=== PATIENT | female | born 1935 | race Caucasian/White ===

== ENCOUNTER 2019-11-22 10:34 | Outpatient (CLI) | payer MEDICARE, SELFPAY ==
[2019-11-22 10:57] LABS: Basophils Percent Auto 0.2 % (0.2-1.2); Eosinophils Absolute Auto 0.2 K/mm3 (0-0.3); Eosinophils Percent Auto 4.2 % (0-4.4); Hematocrit 37.1 % (37.0-47.0); Hemoglobin 11.8 g/dL (12.0-15.0); Immature Granulocyte Absolute 0.01 K/mm3 (0.00-0.031); Immature Granulocyte Percent A 0.2 % (0-0.5); Lymphocytes Absolute Auto 1.47 K/mm3 (0.9-3.2); Lymphocytes Percent Auto 32.7 % (18.3-44.2); Mean Corpuscular HGB Conc 31.8 g/dl (32-36); Mean Corpuscular Hemoglobin 29.9 pg (26-34); Mean Corpuscular Volume 94.2 fl (80-100); Mean Platelet Volume 8.8 fl (7.4-10.4); Monocytes Absolute Auto 0.3 K/mm3 (0.1-0.6); Monocytes Percent Auto 6.9 % (2.6-8.5); Neutrophils Absolute Auto 2.5 K/mm3 (1.3-6.7); Neutrophils Percent Auto 55.8 % (45.5-73.1); Platelet Count Result 160 k/mm3 (150-375); Red Blood Count 3.94 M/mm3 (4.2-5.4); Red Cell Distribution Width 13.7 % (11.5-14.5); White Blood Count 4.5 K/mm3 (4.5-10.0)
[2019-11-22 11:12] LABS: Alanine Aminotransferase 17 U/L (4-35); Albumin Level 3.6 g/dL (3.5-5.1); Alkaline Phosphatase 95 U/L (38-126); Aspartate Amino Transferase 44 U/L (14-36); Bilirubin,Total 0.3 mg/dL (0.2-1.3); Blood Urea Nitrogen 9 mg/dL (7-17); Calcium 9.2 mg/dL (8.4-10.2); Carbon Dioxide 33 mmol/L (22-30); Chloride 104 mmol/L (98-107); Estimated Glomerular Filt Rate > 60; Glucose 100 mg/dL (65-105); Sodium 139 mmol/L (137-145)
[2019-11-22 11:23] LABS: Erythrocyte Sedimentation Rate 89 mm/hr (0-20)
== END 2019-11-22 10:35 | disposition home or self-care (01) ==
PROVIDERS: PCP Family Medicine; Visit Provider Family Medicine
DX: E78.00 Pure hypercholesterolemia, unspecified (principal); I10 Essential (primary) hypertension; M35.3 Polymyalgia rheumatica
CPT/HCPCS: 36415; 80053; 85025; 85652

== ENCOUNTER 2019-11-27 12:58 | Emergency (ER) | payer MEDICARE, SELFPAY ==
--- NOTE | ~2019-11-27 | XR_ITS ---
XR ankle LT min 3V DATE: 11/27/2019 14:02 INDICATION: Pain and swelling for 3 weeks TECHNIQUE: 4 views COMPARISON: None FINDINGS: Prominent posterior and plantar calcaneal enthesopathy. There is generalized soft tissue swelling of the left ankle. No fracture or dislocation of the ankle or disruption of the ankle mortise. No periosteal reaction or bone destruction. IMPRESSION: Generalized soft tissue swelling; no fracture or dislocation Prominent posterior and plantar calcaneal enthesopathy Reviewed, dictated and finalized at location A.
--- NOTE | ~2019-11-27 | XR_ITS ---
XR foot LT min 3V DATE: 11/27/2019 13:18 INDICATION: Pain and swelling of left foot. No injury. TECHNIQUE: 4 views COMPARISON: None FINDINGS: There is very prominent posterior and plantar calcaneal enthesopathy. Osteopenia. No fracture or dislocation, periosteal reaction or bone destruction is detected. There is mild osteoarthritis at the first metatarsophalangeal joint. IMPRESSION: Prominent plantar and posterior calcaneal enthesopathy Mild osteophyte is at first metatarsophalangeal joint Osteopenia Reviewed, dictated and finalized at location A.
--- NOTE | ~2019-11-27 | US_ITS ---
US venous doppler [facility] DATE: 11/27/2019 14:19 INDICATION: Pain and swelling of left lower extremity TECHNIQUE: Real-time and color flow imaging and Doppler analysis of the veins of the left leg COMPARISON: None FINDINGS: The left greater saphenous vein is patent. There is spontaneous and phasic flow and normal augmentation and color flow signal and normal compression of the deep veins of the left lower extremi ty. IMPRESSION: No evidence of deep venous thrombosis of the left lower extremity Reviewed, dictated and finalized at Location A. Reviewed, dictated and finalized at location A.
[2019-11-27 13:00] VITALS: BP 137/73; PULSE 76; RESP 18; TEMP 37; O2SAT 99
--- NOTE | 2019-11-27 13:31 | ED.LOWEXIN ---
HPI - Extremity Injury (Lower) General Chief Complaint: Extremity Injury, Lower Stated Complaint: Left Foot Swelling x3 Weeks Time Seen by Provider: 11/27/19 13:19 Source: patient Mode of arrival: wheelchair Limitations: no limitations History of Present Illness HPI Narrative: This is a 84 year old female that presents to the ER for left ankle swelling x 3 weeks. Reports pain in the ankle as well. No known injuries or trauma. Denies fever, erythema numbness or decreased ROM. Related Data Home Medications Medication Instructions Recorded Confirmed aspirin 81 mg chewable tablet 81 mg PO DAILY 09/15/19 metoprolol tartrate 50 mg tablet 50 mg PO Q12H 09/15/19 Allergies Allergy/AdvReac Type Severity Reaction Status Date / Time No Known Allergies Allergy Verified 11/27/19 13:04 Review of Systems Review of Systems: Narrative: CONSTITUTIONAL: Denies fever CARDIOVASCULAR: Reports edema RESPIRATORY: Denies dyspnea. SKIN: Denies rash MUSCULOSKELETAL: Reports joint pain, and myalgia. NEUROLOGIC: Denies numbness All systems reviewed & are unremarkable except as noted in HPI and below PMFSH Past Medical History Medical History (Updated 11/27/19 @ 15:56 by Norma Dexter PA-C) CAD (coronary artery disease) Essential (primary) hypertension Gastro-esophageal reflux disease without esophagitis Surgical History Surgical History H/O: hysterectomy History of knee replacement History of vein stripping Hx of CABG Social History Social History Smoking status: Never smoker Alcohol intake: never Gender identity (if verbalized by the patient): Female Exam Narrative: Exam Narrative: GENERAL: Elderly, well-nourished, and in no acute distress. HEAD: Normocephalic, atraumatic. EYES: EOMI. CHEST: Clear to auscultation. No respiratory distress. No wheezes rales or rhonchi HEART: Regular rate and rhythm. No murmur heard. Normal peripheral pulses. EXTREMITIES: Normal range of motion. Mild non-pitting edema to the left foot and ankle into the lower leg, no erythema or warmth. Normal DP pulses. Normal sensation SKIN: Warm, dry, no rash. NEURO: No focal deficits. Alert and oriented x3. PSYCH: Normal mood and affect Course Consultations Consultation #1: Spoke with patient's primary, Dr. Cohen about workup. Reports she has a history of polymyalgia rheumatica and would like her started on 20 mg of prednisone daily and he will follow-up in clinic. Date: 11/27/19 Time: 15:56 Vital Signs Vital signs: Vital Signs Temperature 98.6 F 11/27/19 13:00 Pulse Rate 76 11/27/19 13:00 Respiratory Rate 18 11/27/19 13:00 Blood Pressure 137/73 11/27/19 13:00 Pulse Oximetry 99 11/27/19 13:00 Temperature 98.6 F 11/27/19 13:00 Pulse Rate 76 11/27/19 13:00 Respiratory Rate 18 11/27/19 13:00 Blood Pressure 137/73 11/27/19 13:00 Pulse Oximetry 99 11/27/19 13:00 MDM - Extremity Injury (Lower) MDM Narrative Medical decision making narrative: Patient presents the emergency department for left ankle and foot pain and swelling. Patient is afebrile and nontoxic-appearing. No erythema or warmth on exam to suggest infection. CBC is without leukocytosis. She does have a mild normocytic anemia with hemoglobin of 11.2. ESR is elevated to 105. CRP mildly elevated to 1.5. Uric acid is normal. Left foot and ankle x-ray shows soft tissue swelling, no osseous abnormalities. Left lower extremity venous Dopplers without evidence of DVT. Spoke with patient's primary, Dr. Cohen about workup. Reports she has a history of polymyalgia rheumatica and would like her started on 20 mg of prednisone daily and he will follow-up in clinic. Patient is stable and felt appropriate for further outpatient evaluation. She is to follow-up with primary care doctor. She was given warnings to return to the ER Lab Data Att
[2019-11-27 13:48] LABS: Basophils Percent Auto 0.2 % (0.2-1.2); Eosinophils Absolute Auto 0.2 K/mm3 (0-0.3); Eosinophils Percent Auto 3.9 % (0-4.4); Hematocrit 35.4 % (37.0-47.0); Hemoglobin 11.2 g/dL (12.0-15.0); Immature Granulocyte Absolute 0.01 K/mm3 (0.00-0.031); Immature Granulocyte Percent A 0.2 % (0-0.5); Lymphocytes Absolute Auto 1.13 K/mm3 (0.9-3.2); Lymphocytes Percent Auto 24.2 % (18.3-44.2); Mean Corpuscular HGB Conc 31.6 g/dl (32-36); Mean Corpuscular Hemoglobin 29.2 pg (26-34); Mean Corpuscular Volume 92.2 fl (80-100); Mean Platelet Volume 8.5 fl (7.4-10.4); Monocytes Absolute Auto 0.4 K/mm3 (0.1-0.6); Neutrophils Absolute Auto 2.9 K/mm3 (1.3-6.7); Neutrophils Percent Auto 62.5 % (45.5-73.1); Platelet Count Result 156 k/mm3 (150-375); Red Blood Count 3.84 M/mm3 (4.2-5.4); Red Cell Distribution Width 13.6 % (11.5-14.5); White Blood Count 4.7 K/mm3 (4.5-10.0)
[2019-11-27 14:00] LABS: Prothrombin Time 12.7 Seconds (11.1-14.7)
[2019-11-27 14:01] LABS: Partial Thromboplastin Time 27.5 SECONDS (22.3-36.8)
[2019-11-27 14:02] LABS: Uric Acid 3.4 mg/dL (2.5-7.5)
[2019-11-27 14:05] LABS: Blood Urea Nitrogen 10 mg/dL (7-17); CRP 1.5 mg/dL (<1.0); Calcium 9.2 mg/dL (8.4-10.2); Carbon Dioxide 31 mmol/L (22-30); Chloride 103 mmol/L (98-107); Estimated CRCL calculation 67 ml/min; Estimated Glomerular Filt Rate > 60; Glucose 93 mg/dL (65-105); Potassium 4.4 mmol/L (3.4-5.0); Sodium 138 mmol/L (137-145)
[2019-11-27 14:16] LABS: Erythrocyte Sedimentation Rate 105 mm/hr (0-20)
[2019-11-27 16:02] VITALS: BP 142/88; PULSE 88; RESP 16; O2SAT 98
== END 2019-11-27 16:16 | disposition home or self-care (01) ==
PROVIDERS: Physician Assistant; Emergency Provider Emergency Medicine; PCP Family Medicine
DX: M35.3 Polymyalgia rheumatica (principal); I25.10 Atherosclerotic heart disease of native coronary artery without angina pectoris; I10 Essential (primary) hypertension; Z96.659 Presence of unspecified artificial knee joint; Z95.1 Presence of aortocoronary bypass graft; K21.9 Gastro-esophageal reflux disease without esophagitis; M85.872 Other specified disorders of bone density and structure, left ankle and foot; M25.775 Osteophyte, left foot; M77.32 Calcaneal spur, left foot
CPT/HCPCS: 36415; 73610; 73630; 80048; 84550; 85025; 85610; 85652; 85730; 86140; 93971; 99284

== ENCOUNTER 2020-01-05 12:33 | Outpatient (CLI) | payer MEDICARE, SELFPAY ==
--- NOTE | ~2020-01-05 | XR_ITS ---
EXAMINATION: XR lumbar spine 6V w bending DATE: 01/05/2020 13:08 INDICATION: Low back pain TECHNIQUE: Anteroposterior, lateral in neutral, flexion and extension, and bilateral oblique views of the lumbar spine, and cone-down lateral view of the lumbosacral junction were obtained. COMPARISON: 11/29/2017 FINDINGS: No fracture is identified. The bones are osteopenic. 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 The re are 6 mm of anterolisthesis of L5 on S1. No laxity is present with flexion or extension. There is mild loss of intervertebral disc space height throughout the lumbar spine. Degenerative osteophytes p roject from the anterior endplates of multiple vertebral bodies. Moderate facet osteoarthritis is pre sent at multiple levels. 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 Calcified atherosclerosis is noted. There is a fusiform infrarenal abdominal aortic aneurysm with slight increase in size since t he comparison examination.. IMPRESSION: 1. Moderate lumbar spondylosis without acute findings or significant interval change. 2. Slight increase in size of infrarenal abdominal aortic aneurysm. Reviewed, dictated and finalized at location A. IMPRESSION: 1. Moderate lumbar spondylosis without acute findings or significant interval c kolby. 2. Slight increase in size of infrarenal abdominal aortic aneurysm.
== END 2020-01-05 12:34 | disposition home or self-care (01) ==
PROVIDERS: PCP Family Medicine; Visit Provider Family Medicine
DX: M54.5 Low back pain (principal); M47.816 Spondylosis without myelopathy or radiculopathy, lumbar region; I71.4 Abdominal aortic aneurysm, without rupture
CPT/HCPCS: 72114

== ENCOUNTER 2020-01-19 09:42 | Outpatient (CLI) | payer MEDICARE, SELFPAY ==
--- NOTE | ~2020-01-19 | CT_ITS ---
EXAMINATION: CT abdomen wo con DATE: 01/19/2020 10:18 INDICATION: Abdominal aortic aneurysm without rupture. TECHNIQUE: Computed tomography (CT) of the abdomen was performed without intravenous contrast. Automa ector exposure control and iterative reconstruction technique were employed. The dose-length product wa s 675.00 mGy-cm. COMPARISON: CT abdomen and pelvis 11/29/2017 FINDINGS: The visualized portions of the lung bases demonstrate mild atelectasis. No pleural effusion . There is a small left posterior diaphragmatic hernia containing fat. The heart size is normal. Ther e are coronary artery calcifications. No pericardial effusion. There is a small sliding hiatal hernia . Calcifications in the liver and spleen are consistent with old granulomatous disease. The gallbladd er, pancreas, adrenal glands, and kidneys are normal. There are no dilated loops of bowel. There are no pathologically enlarged lymph nodes. There is no free intraperitoneal fluid. There is a 3.2 cm fus iform infrarenal aortic aneurysm. There are chronic bilateral L5 pars defects. There is 4 mm anteroli sthesis of L5 on S1. There is moderate lumbar spondylosis. IMPRESSION: 1. Stable 3.2 cm fusiform infrarenal aortic aneurysm. 2. Small sliding hiatal hernia. Reviewed, dictated and finalized at location A.
== END 2020-01-19 09:43 | disposition home or self-care (01) ==
LOC: ANHIMG 09:45
PROVIDERS: PCP Family Medicine; Visit Provider Family Medicine
DX: I71.4 Abdominal aortic aneurysm, without rupture (principal); K44.9 Diaphragmatic hernia without obstruction or gangrene
CPT/HCPCS: 74150

== ENCOUNTER 2020-01-22 06:11 | Inpatient (IN) | payer MEDICARE, SELFPAY ==
[2020-01-22] VITALS (9 sets, daily range): BP systolic 109–216; BP diastolic 47–88; PULSE 54–80; RESP 13–24; TEMP 36.6–37.2; O2SAT 93–100
--- NOTE | ~2020-01-22 | XR_ITS ---
EXAMINATION: XR chest 1V portable INDICATION: Pain after fall TECHNIQUE: Portable AP chest at 0729 hours COMPARISON: 09/02/2018 FINDINGS: The lungs are free of acute opacities. There is no pleural effusion or pneumothorax. The he art size is normal for technique. Median sternotomy wires and mediastinal surgical clips are seen, li arturo from prior coronary artery bypass grafting. IMPRESSION: 1. No acute cardiopulmonary abnormality. Reviewed, dictated and finalized at location A.
--- NOTE | ~2020-01-22 | XR_ITS ---
EXAMINATION: XR hip LT 2V w AP pelvis INDICATION: Left hip pain, initial encounter TECHNIQUE: AP view of the pelvis and two views of the left hip are obtained. COMPARISON: None available FINDINGS: There is an acute, traumatic, closed, comminuted intertrochanteric fracture of the left fem ur. The femoral head is well-seated in the acetabulum. There is moderate bilateral hip osteoarthritis . No additional acute osseous abnormality is identified. Calcified atherosclerosis is noted. IMPRESSION: 1. Acute, comminuted intertrochanteric left femur fracture. Reviewed, dictated and finalized at location A.
--- NOTE | ~2020-01-22 | XR_ITS ---
EXAMINATION: XR surgery orthopedic DATE: 01/23/2020 08:40 INDICATION: Intertrochanteric fracture of proximal left femur. TECHNIQUE: 4 intraoperative fluoroscopic views of left hip were obtained. I was not present. Fluorosc opy exposure time was 58 seconds. COMPARISON: Pelvis and left hip radiographs 01/22/2020 FINDINGS: There is a comminuted intertrochanteric fracture of proximal left femur. The main distal fr acture fragment demonstrates near-anatomic alignment status post open reduction internal fixation wit h antegrade intramedullary shelly, femoral head/neck screw, and distal interlocking screw. There is mode rate left hip osteoarthritis. IMPRESSION: 1. Comminuted intertrochanteric fracture of proximal left femur status post open reduction internal f ixation. 2. Moderate left hip osteoarthritis. Reviewed, dictated and finalized at location A. IMPRESSION: 1. Comminuted intertrochanteric fracture of proximal left femur status post ope n reduction internal fixation. 2. Moderate left hip osteoarthritis.
--- NOTE | 2020-01-22 07:02 | ED.FALL ---
HPI - Fall General Chief Complaint: Fall Stated Complaint: fall/ hip pain Time Seen by Provider: 01/22/20 07:01 Source: patient and family Mode of arrival: EMS Limitations: no limitations History of Present Illness HPI Narrative: Patient is an 84-year-old female who presents for evaluation after fall out of bed, left hip pain. Patient states she must have rolled out of bed, landing on her left side. She reports left hip pain which is dull, aching in nature and worse with movement. She reports her pain is very mild as long as she does not try to move it. She denies any numbness or knee pain. No head trauma. No headache or vision changes. Patient takes a daily baby aspirin, no other anticoagulation. She denies any chest pain or shortness of breath. Related Data Home Medications Medication Instructions Recorded Confirmed aspirin 81 mg chewable tablet 81 mg PO DAILY 09/15/19 metoprolol tartrate 50 mg tablet 50 mg PO Q12H 09/15/19 acetaminophen 325 mg tablet 325 mg PO .QD PRN tablet 11/30/19 calcium carbonate 600 mg (1,500 1 cap PO .QD cap 11/30/19 mg)-vitamin D3 500 unit capsule ferrous sulfate 325 mg (65 mg 325 mg PO BID 11/30/19 iron) tablet meclizine 12.5 mg tablet 12.5 mg PO .PRN tablet 11/30/19 mecobalamin (vitamin B12) 1,000 1,000 mcg PO DAILY 11/30/19 mcg chewable tablet multivitamin 1 tablet PO DAILY 11/30/19 vit C-vit I-[id number]-vfhe ox-lutein 1 cap PO BID cap 11/30/19 226 mg-200 unit-5 mg-0.8 mg capsule vitamin B complex 1 tablet PO DAILY 11/30/19 propylene glycol [Systane Complete] 1 drp OPHTHALMIC (EYE) TID PRN 01/22/20 Allergies Allergy/AdvReac Type Severity Reaction Status Date / Time No Known Allergies Allergy Verified 01/22/20 08:23 Review of Systems Review of Systems: Narrative: CONSTITUTIONAL: Denies fever CARDIOVASCULAR: Denies chest pain RESPIRATORY: Denies cough or dyspnea. GASTROINTESTINAL: Denies abdominal pain SKIN: Denies rash MUSCULOSKELETAL: Denies back pain, reports left hip pain NEUROLOGIC: Denies headache PMFSH Past Medical History Medical History CAD (coronary artery disease) Essential (primary) hypertension Gastro-esophageal reflux disease without esophagitis Surgical History Surgical History H/O: hysterectomy History of knee replacement History of vein stripping Hx of CABG Family History Family History Father Family history of cardiovascular disease, Onset Age: 86 Mother Family history of cardiovascular disease, Onset Age: 87 Sibling Acute myocardial infarction Family history of lung cancer Family history of malignant neoplasm of breast in first degree relative Family history of malignant neoplasm of urinary bladder Social History Social History Smoking status: Never smoker Alcohol intake: never Gender identity (if verbalized by the patient): Female Exam Narrative: Exam Narrative: GENERAL: Awake, alert, conversant HEAD: Normocephalic, atraumatic. EYES: PERRLA and EOMI. ENT: Nares clear, no rhinorrhea or epistaxis. Mucous membranes moist. NECK: Supple. CHEST: No respiratory distress, breathing even and non labored HEART: Borderline bradycardic rate, sinus rhythm ABDOMEN:Non distended, non tender EXTREMITIES: Left leg is shortened and externally rotated. DP pulses 2+. Intact distal sensation. Patient with decreased range of motion due to pain. Unable to lift leg off of bed due to pain. Further range of motion exercises not attempted. SKIN: Warm, dry, skin tear to left elbow. NEURO:No focal deficits. Alert and oriented x3 Course Vital Signs Vital signs: Vital Signs Temperature 36.7 C 01/22/20 06:16 Pulse Rate 58 L 01/22/20 06:16 Respiratory Rate 13 01/22/20 06:16 Blood Pre
--- NOTE | 2020-01-22 07:15 | PC.NURSE ---
Assumed care of pt, pt is alert and lying supine on stretcher, denies pain at this time. Spouse at bedside. VSS. Discussed POC.
--- NOTE | 2020-01-22 07:24 | ECG_ITS ---
Measurements Intervals [place] Rate: 55 P: 46 FL: 204 QRS: -50 QRSD: 128 T: 10 QT: 441 QTc: 425 Interpretive Statements SINUS BRADYCARDIA LEFT AXIS DEVIATION BORDERLINE AV CONDUCTION DELAY INTRAVENTRICULAR CONDUCTION DELAY LEFT VENTRICULAR HYPERTROPHY WITH ST-T CHANGE CANNOT RULE OUT SEPTAL INFARCT, AGE INDETERMINATE INFERIOR INFARCT, AGE INDETERMINATE BASELINE ARTIFACT- I, II, III, AVR, AVF ABNORMAL ECG Electronically Signed On 01-22-2020 8:53:19 CDT by Haja Myers D.O.
--- NOTE | 2020-01-22 07:52 | PC.NURSE ---
Pt c/o pain, per Dr Cristobal BARTLETT okay to give Morphine 4MG IVP.
[2020-01-22] MEDS: MORPHINE SULFATE 4 MG/ML INJ IV PUSH (07:55)
[2020-01-22 08:27] LABS: Basophils Percent Auto 0.1 % (0.2-1.2); Eosinophils Absolute Auto 0.1 K/mm3 (0-0.3); Eosinophils Percent Auto 1.4 % (0-4.4); Hematocrit 37.3 % (37.0-47.0); Hemoglobin 11.8 g/dL (12.0-15.0); Immature Granulocyte Absolute 0.05 K/mm3 (0.00-0.031); Immature Granulocyte Percent A 0.7 % (0-0.5); Lymphocytes Absolute Auto 1.26 K/mm3 (0.9-3.2); Lymphocytes Percent Auto 17.7 % (18.3-44.2); Mean Corpuscular HGB Conc 31.6 g/dl (32-36); Mean Corpuscular Hemoglobin 29.9 pg (26-34); Mean Corpuscular Volume 94.7 fl (80-100); Mean Platelet Volume 8.5 fl (7.4-10.4); Monocytes Absolute Auto 0.4 K/mm3 (0.1-0.6); Monocytes Percent Auto 5.9 % (2.6-8.5); Neutrophils Absolute Auto 5.3 K/mm3 (1.3-6.7); Neutrophils Percent Auto 74.2 % (45.5-73.1); Platelet Count Result 146 k/mm3 (150-375); Red Blood Count 3.94 M/mm3 (4.2-5.4); White Blood Count 7.1 K/mm3 (4.5-10.0)
[2020-01-22 08:39] LABS: Add Urine Microscopic? YES; Appearance Urine Clear (Clear); Bacteria Urine Trace /hpf; Bilirubin Urine Negative (Negative); Blood Urea Nitrogen 15 mg/dL (7-17); Blood Urine Negative (Negative); Calcium 8.8 mg/dL (8.4-10.2); Carbon Dioxide 32 mmol/L (22-30); Chloride 103 mmol/L (98-107); Color Urine Straw (Yellow); Estimated CRCL calculation 66 ml/min; Estimated Glomerular Filt Rate > 60; Glucose 97 mg/dL (65-105); Glucose Urine UA Negative (Negative); Ketones Urine Negative (Negative); Leukocyte Esterase Ur Negative LEU/UL (Negative); Mucus Urine Rare /lpf; Nitrate Urine Negative (Negative); Potassium 4.1 mmol/L (3.4-5.0); Protein Urine Negative (Negative); RBC Urine 0-2 /hpf (0-2); Sodium 140 mmol/L (137-145); Urobilinogen Urine Negative mg/dL (<2.0); WBC Urine 0-3 /hpf
[2020-01-22 08:41] LABS: INR 0.9; Prothrombin Time 12.3 Seconds (11.1-14.7)
[2020-01-22] MEDS: hydrALAZINE HCL 20 MG/ML VIAL IV PUSH (09:16)
[2020-01-22] MEDS: SODIUM CHLORIDE 0.9% IV 1,000 ML 125 ML IV CONT (09:17)
[2020-01-22] MEDS: ONDANSETRON INJ 4 MG/2 ML VIAL IV PUSH (09:37)
--- NOTE | 2020-01-22 09:38 | PC.NURSE ---
Pt called out and stated that she was nauseous. Pt given 4mg zofran
--- NOTE | 2020-01-22 11:33 | ADMGEN ---
This patient, Annie Denise, was admitted to [address] [facility] Surg Room 304-01. Patient/family oriented to hospital policies and general routines including ID bracelet, bed and alarms, visiting hours, pain management, procedures, bathroom and other care routines, personal items, smoking policy, room service/diet, and visiting hours. Valuables list has been completed. Information on how to activate the Rapid Response Team has been discussed. Patient/Family are encouraged to report perceived risks to care and to ask questions if they do not understand what they are told or what they should do.
--- NOTE | 2020-01-22 11:55 | PM.CNOR ---
Assessment and Plan Assessment and plan (1) Fracture of hip, left, closed: Qualifiers: Encounter type: initial encounter Qualified Code(s): S72.002A - Fracture of unspecified part of neck of left femur, initial encounter for closed fracture Code(s): S72.002A - Fracture of unspecified part of neck of left femur, initial encounter for closed fracture Status: Acute Assessment and Plan: 84-year-old female with an acute comminuted left hip intertrochanteric fracture. This is best treated with surgical stabilization in the form of ORIF left IT hip fracture with a trochanteric nail.Risks and potential complications were discussed in detail and questions answered. I have spoken with the hospitalist service. Pending medical clearance, we will proceed tomorrow morning. Thank you for the consultation History of Present Illness HPI Consult date: 01/22/20 Consult reason: fracture Chief complaint: left hip fracture Narrative: 84-year-old female who fell out of bed this morning suffering a comminuted left intertrochanteric hip fracture. No other injuries with this occurrence. She does have chronic low back pain issues which have limited her ability to get around comfortably in recent months. Review of Systems Constitutional: Constitutional: Reports no additional constitutional complaints, Denies excessive sweating and Denies fatigue Eyes: Eyes: Reports no additional eye complaints ENT: Reports system reviewed and no additional complaints, except as documented Cardiovascular: Cardiovascular: Denies chest pain at rest and Denies dyspnea Respiratory: Respiratory: Reports no additional respiratory complaints and Denies dyspnea Gastrointestinal: Gastrointestinal: Reports no additional gastrointestinal complaints Musculoskeletal: Musculoskeletal: Reports as per HPI Integumentary/Breasts: Skin/Breast: Reports system reviewed and no additional complaints, except as docu Neurologic: Reports as per HPI Endocrine: Endocrine: Denies excessive sweating and Denies fatigue Hematologic/Lymphatic: Hematologic/Lymphatic: Denies easy bleeding and Denies easy bruising PMFSH Past Medical History Medical History (Updated 01/22/20 @ 12:04 by Obi Greenfield MD) CAD (coronary artery disease) Essential (primary) hypertension Gastro-esophageal reflux disease without esophagitis Surgical History Surgical History (Updated 01/22/20 @ 11:56 by Obi Greenfield MD) H/O: hysterectomy History of knee replacement Bilateral History of vein stripping Hx of CABG Family History Family History Father Family history of cardiovascular disease, Onset Age: 86 Mother Family history of cardiovascular disease, Onset Age: 87 Sibling Acute myocardial infarction Family history of lung cancer Family history of malignant neoplasm of breast in first degree relative Family history of malignant neoplasm of urinary bladder Social History Social History Smoking status: Never smoker Alcohol intake: never Substance use: never Gender identity (if verbalized by the patient): Female Spiritual care concerns: No Meds Home Medications and Allergies Home Medications Medication Instructions Recorded Confirmed Type pantoprazole 20 mg tablet,delayed 20 mg PO QAM #90 tablet 06/02/19 Rx release aspirin 81 mg chewable tablet 81 mg PO DAILY 09/15/19 History metoprolol tartrate 50 mg tablet 50 mg PO Q12H 09/15/19 History simvastatin 40 mg tablet 40 mg PO DAILY #90 tablet 10/06/19 Rx alprazolam 0.5 mg tablet 0.5 mg PO QID #60 tablet 11/08/19 Rx acetaminophen 325 mg tablet 325 mg PO .QD PRN tablet 11/30/19 History calcium carbonate 600 mg (1,500 1 cap PO .QD cap 11/30/19 History mg)-vitamin D3 500 unit capsule ferrous sulfate 325 mg (65 mg 325 mg PO BID 11/30/19 History iron) table
--- NOTE | 2020-01-22 15:05 | PM.IMHP ---
H&P: HPI History of Present Illness Chief complaint: left hip fracture Narrative: Annie Denise is a 84 year old female with history of CAD (s/p CABG 2017), CHF, HTN, and AFSHIN who presented to the ED today, 01/21, from home via [facility] with complaints of left hip pain after sustaining a fall at home. Patient was in her normal state of health last night when she went to bed, and woke up this morning on the floor. She states she usually tosses and turns in bed when she sleeps and thinks she may have rolled out of bed, landing on her left side. EMS was subsequently summoned. Does not believe she hit her head; no chest pain/palpitations, dizziness/lightheadedness, no loss of consciousness as she was already asleep. She states her pain was 3/10 at its worse, currently at 2/10. Pain is worse with movement. She describes the pain as dull and just an uncomfortable feeling. No loss of sensation or movement in feet/lower leg bilaterally. She typically is able to ambulate decently without any assitance at home, although, Allan notes she has been having walking a bit slow and slumped over lately. She reports no previous falls. No recent illness. She has bee noting swelling in her lower legs which her PCP is treating with daily prednisone. Otherwise, she has no other complaints. Denies f/c/s, myalgias/arthralgias, headaches, dizziness, lightheadedness, cp/palpitations, sob/cough, n/v/d/c, abd pain, changes in BMs, dysuria, hematuria, cloudy urine, calf pain, one sided arm/leg weakness, slurred speech, facial droop. While in the ED, left hip xray showed acute, comminuted intertrochanteric left femur fracture. BP was elevated as high as 216/88 as patient she had not taken her morning blood pressure medication; hydralazine was given which improved BP to 100s sys this afternoon. Review of Systems Review of Systems: All systems reviewed & are unremarkable except as noted in HPI and below PMFSH Past Medical History Medical History (Updated 01/22/20 @ 16:17 by Juliocesar Carmichael PA-C) Abdominal aortic aneurysm (AAA) without rupture (12/08/17) CAD (coronary artery disease) CHF (congestive heart failure) Essential (primary) hypertension Gastro-esophageal reflux disease without esophagitis Obstructive sleep apnea (adult) (pediatric) Pure hypercholesterolemia, unspecified Vertigo Surgical History Surgical History H/O: hysterectomy History of knee replacement Bilateral History of vein stripping Hx of CABG Family History Family History Father Family history of cardiovascular disease, Onset Age: 86 Mother Family history of cardiovascular disease, Onset Age: 87 Sibling Acute myocardial infarction Family history of lung cancer Family history of malignant neoplasm of breast in first degree relative Family history of malignant neoplasm of urinary bladder Social History Social History (Updated 01/22/20 @ 15:39 by Juliocesar Carmichael PA-C) Social History: Patient lives at home with Allan, whom she designates as her surrogate MDM, and her daughter. Her PCP is Dr. Cohen. She is listed as a Full Code Smoking status: Never smoker Alcohol intake: never Substance use: never Gender identity (if verbalized by the patient): Female Spiritual care concerns: No Meds Home Medications and Allergies Home Medications Medication Instructions Recorded Confirmed Type pantoprazole 20 mg tablet,delayed 20 mg PO QAM #90 tablet 06/02/19 01/22/20 Rx release aspirin 81 mg chewable tablet 81 mg PO DAILY 09/15/19 01/22/20 History metoprolol tartrate 50 mg tablet 50 mg PO Q12H 09/15/19 01/22/20 History acetaminophen 325 mg tablet 325 mg PO PRN PRN tablet 11/30/19 01/22/20 History calcium carbonate 600 mg (1,500 1 cap PO .QD cap 11/30/19 01/22/20 History mg)-vitamin D3 500 unit capsule ferr
[2020-01-22] MEDS: ACETAMINOPHEN 325 MG TABLET 650 MG PO ×2 (16:33→22:54)
[2020-01-22] MEDS: predniSONE 5 MG TABLET 15 MG PO (16:34)
[2020-01-22] MEDS: FERROUS SULFATE 324 MG TABLET PO (16:35)
[2020-01-22] MEDS: METOPROLOL TARTRATE 50 MG TAB PO (20:55)
[2020-01-22] MEDS: SIMVASTATIN 20 MG TABLET 40 MG PO (20:55)
[2020-01-22] MEDS: ALPRAZolam 0.5 MG TABLET PO (20:55)
--- NOTE | 2020-01-22 21:19 | WPDANESEPPF ---
Anes - Initial Pre Proc Eval Procedure: Left hip IT nail Date/Time: 01/22/20 21:19 Surgeon: Lauro Greenfield Pre Op Diagnosis: Left hip fracture Pre Op Diagnosis: left hip fracture Patient Data Age: 84 Gender: F Height: 1.6 m Weight: 93.3 kg Last Vital Signs Temp 37.2 C 01/22/20 14:00 Pulse 68 01/22/20 20:55 Resp 14 01/22/20 15:38 BP 122/47 L 01/22/20 14:00 Pulse Ox 100 01/22/20 15:38 Allergies Allergy/AdvReac Type Severity Reaction Status Date / Time No Known Allergies Allergy Verified 01/22/20 08:23 Home Medications Medication Instructions Recorded Confirmed Type pantoprazole 20 mg tablet,delayed 20 mg PO QAM #90 tablet 06/02/19 01/22/20 Rx release aspirin 81 mg chewable tablet 81 mg PO DAILY 09/15/19 01/22/20 History metoprolol tartrate 50 mg tablet 50 mg PO Q12H 09/15/19 01/22/20 History acetaminophen 325 mg tablet 325 mg PO PRN PRN tablet 11/30/19 01/22/20 History calcium carbonate 600 mg (1,500 1 cap PO .QD cap 11/30/19 01/22/20 History mg)-vitamin D3 500 unit capsule ferrous sulfate 325 mg (65 mg 325 mg PO BID 11/30/19 01/22/20 History iron) tablet meclizine 12.5 mg tablet 12.5 mg PO .PRN tablet 11/30/19 01/22/20 History mecobalamin (vitamin B12) 1,000 1,000 mcg PO DAILY 11/30/19 01/22/20 History mcg chewable tablet multivitamin 1 tablet PO DAILY 11/30/19 01/22/20 History vit C-vit D-[place]au-buay ox-lutein 1 cap PO BID cap 11/30/19 01/22/20 History 226 mg-200 unit-5 mg-0.8 mg capsule vitamin B complex 1 tablet PO DAILY 11/30/19 01/22/20 History alprazolam [Xanax] 0.5 mg PO HS 01/22/20 01/22/20 History propylene glycol [Systane Complete] 1 drp OPHTHALMIC (EYE) TID PRN 01/22/20 01/22/20 History simvastatin 40 mg PO HS 01/22/20 01/22/20 History Laboratory Tests 01/22/20 01/22/20 01/22/20 08:18 08:18 08:18 WBC 7.1 K/mm3 K/mm3 (4.5-10.0) RBC 3.94 M/mm3 L M/mm3 (4.2-5.4) Hgb 11.8 g/dL L g/dL (12.0-15.0) Hct 37.3 % % (37.0-47.0) MCV 94.7 fl fl (80-100) MCH 29.9 pg pg (26-34) MCHC 31.6 g/dl L g/dl (32-36) RDW 15.0 % H % (11.5-14.5) Plt Count 146 k/mm3 L k/mm3 (150-375) MPV 8.5 fl fl (7.4-10.4) Immature Gran % (Auto) 0.7 % H % (0-0.5) Neut % (Auto) 74.2 % H % (45.5-73.1) Lymph % (Auto) 17.7 % L % (18.3-44.2) [place] % (Auto) 5.9 % % (2.6-8.5) Eos % (Auto) 1.4 % % (0-4.4) Baso % (Auto) 0.1 % L % (0.2-1.2) Lymph # (Auto) 1.26 K/mm3 K/mm3 (0.9-3.2) [place] # (Auto) 0.4 K/mm3 K/mm3 (0.1-0.6) Eos # (Auto) 0.1 K/mm3 K/mm3 (0-0.3) Baso # (Auto) 0.0 K/mm3 K/mm3 (0.0-0.1) Abs Immat Gran (auto) 0.05 K/mm3 H K/mm3 (0.00-0.031) Absolute Neuts (auto) 5.3 K/mm3 K/mm3 (1.3-6.7) Absolute Nucleated RBC 0.0 K/mm3 K/mm3 (0.0-0.012) Nucleated RBC % 0.0 % % (0.0-0.2) PT INR APTT 23.0 SECONDS SECONDS (22.3-36.8) Sodium 140 mmol/L mmol/L (137-145) Potassium 4.1 mmol/L mmol/L (3.4-5.0) Chloride 103 mmol/L mmol/L (98-107) Carbon Dioxide 32 mmol/L H mmol/L (22-30) BUN 15 mg/dL D mg/dL (7-17) Creatinine 0.60 mg/dL L mg/dL (0.7-1.0) Estim Creat Clear Calc 66 ml/min ml/min Estimated GFR > 60 (59 - ) Glucose 97 mg/dL mg/dL (65-105) Calcium 8.8 mg/dL mg/dL (8.4-10.2) Urine Color Urine Appearance Urine pH Ur Specific [place] Urine Protein Urine Glucose (UA) Urine Ketones Ur Blood (Man) Urine Nitrate Urine Bilirubin Urine Urobilinogen Leukocyte Esterase Rfl Urine RBC Urine WBC Urine Bacteria U
[2020-01-23] VITALS (13 sets, daily range): BP systolic 140–172; BP diastolic 51–72; PULSE 64–82; RESP 14–20; TEMP 36.6–37.2; O2SAT 92–100; BMI 10.0
[2020-01-23 06:28] LABS: Basophils Percent Auto 0.2 % (0.2-1.2); Eosinophils Percent Auto 0.3 % (0-4.4); Hemoglobin 11.2 g/dL (12.0-15.0); Immature Granulocyte Absolute 0.04 K/mm3 (0.00-0.031); Immature Granulocyte Percent A 0.4 % (0-0.5); Lymphocytes Absolute Auto 1.29 K/mm3 (0.9-3.2); Lymphocytes Percent Auto 11.7 % (18.3-44.2); Mean Corpuscular Hemoglobin 29.9 pg (26-34); Mean Corpuscular Volume 93.6 fl (80-100); Mean Platelet Volume 9.3 fl (7.4-10.4); Monocytes Absolute Auto 0.7 K/mm3 (0.1-0.6); Monocytes Percent Auto 6.2 % (2.6-8.5); Neutrophils Percent Auto 81.2 % (45.5-73.1); Platelet Count Result 168 k/mm3 (150-375); Red Blood Count 3.74 M/mm3 (4.2-5.4); Red Cell Distribution Width 15.7 % (11.5-14.5); White Blood Count 11.1 K/mm3 (4.5-10.0)
[2020-01-23 06:46] LABS: Alanine Aminotransferase 20 U/L (4-35); Albumin Level 3.2 g/dL (3.5-5.1); Alkaline Phosphatase 65 U/L (38-126); Aspartate Amino Transferase 32 U/L (14-36); Bilirubin,Total 0.6 mg/dL (0.2-1.3); Blood Urea Nitrogen 13 mg/dL (7-17); Calcium 8.6 mg/dL (8.4-10.2); Carbon Dioxide 28 mmol/L (22-30); Chloride 103 mmol/L (98-107); Estimated CRCL calculation 77 ml/min; Estimated Glomerular Filt Rate > 60; Glucose 103 mg/dL (65-105); Potassium 3.9 mmol/L (3.4-5.0); Sodium 135 mmol/L (137-145)
--- NOTE | 2020-01-23 07:10 | PC.NURSE ---
To OR per bed, IV SL. Report given to Moriah ARIZA.
[2020-01-23] MEDS: LACTATED RINGERS 1,000 ML 30 ML IV CONT (07:15)
[2020-01-23] MEDS: ceFAZolin SODIUM 1 GM VIAL 2 GM IV PUSH (07:30)
--- NOTE | 2020-01-23 09:01 | P.OP_ITS ---
Procedure Note - Detailed Date of procedure: 01/23/20 Pre-op diagnosis: left hip fracture left intertrochanteric hip fracture Post-op diagnosis: same Procedure performed: ORIF left IT hip fracture using trochanteric nail device Description of procedure: The patient was identified and proper site identified, then was taken to the operating room and after general anesthetic induction and intubation was transferred to the [place] table positioning supine taking care to properly pad position the torso and extremities. A provisional reduction was able to be obtained with fluoroscopic assistance. The left hip and thigh was then prepped and draped in the usual sterile fashion. A short incision was made proximal to the tip of the greater trochanter. Subcutaneous tissue was sharply dissected down to the gluteus fascia which was incised over the tip of the greater trochanter. An awl was used to create a starting hole through which a guide shelly was inserted into the femoral canal verifying its position fluorosc opically. The one-step Reamer was used to prepare the entry point for the shelly. A 125 degree 9 mm short nail was then inserted to the appropriate level using the targeting device. Through a 2nd more distal incision under fluoroscopic visualization a 110 mm lag screw was inserted over a guidewire into the femoral neck and head securing it with the set screw. Through a 3rd more distal incision, using the targeting device, a distal interlocking screw was placed. The overall construct was assessed fluoroscopically on the AP and lateral views, and was noted to be satisfactory. The targeting device was removed. The wounds were irrigated with sterile antibiotic solution. The fascia was reapproximated with 0 Vicryl as was the deeper layers of the subcu. Skin edges were reapproximated with three 0 Monocryl and arlene in the proximal incisions, three 0 nylon in the distal incision. Sterile dressing was applied. The procedure was well tolerated. There were no known intraoperative complications. Perioperative antibiotics were administered. Anesthesia: GLMA Surgeon: Obi Greenfield MD [employer]obile Radio Repairer: Gonzalez Justin Estimated blood loss (mL): 100 Drains: No Packing: No Pathology: none sent Complications: No immediate complications Condition: stable Disposition: PACU
[2020-01-23] MEDS: METOPROLOL TARTRATE 50 MG TAB PO ×2 (10:56→21:31)
[2020-01-23] MEDS: FERROUS SULFATE 324 MG TABLET PO ×2 (10:56→18:25)
[2020-01-23] MEDS: MULTIVITAMINS THERAPEUTIC TAB (*BKC) 1 TABLET PO (10:56)
[2020-01-23] MEDS: VITAMIN B COMPLEX CAPSULE 1 CAP PO (10:57)
[2020-01-23] MEDS: PANTOPRAZOLE SOD SESQUIHYDRATE 20 MG TAB PO (10:57)
[2020-01-23] MEDS: predniSONE 5 MG TABLET 15 MG PO (10:57)
[2020-01-23] MEDS: SODIUM CHLORIDE 0.9% IV 1,000 ML 100 ML IV CONT (11:00)
[2020-01-23] MEDS: DOCUSATE SODIUM 100 MG CAPSULE PO ×2 (12:15→18:25)
[2020-01-23] MEDS: ACETAMINOPHEN 500 MG TABLET 1000 MG PO ×3 (12:15→23:09)
[2020-01-23] MEDS: ENOXAPARIN 40 MG/0.4 ML SYRINGE SUB-Q (12:15)
[2020-01-23] MEDS: FAMOTIDINE 20 MG TABLET PO ×2 (12:15→21:31)
[2020-01-23] MEDS: MECLIZINE HCL 12.5 MG TABLET PO (12:42)
[2020-01-23] MEDS: ceFAZolin 2 GM/D5W 50 ML 2 GM/50 ML BAG IVPB ×2 (15:57→23:14)
--- NOTE | 2020-01-23 16:15 | P.PNIM_ITS ---
Progress Note: A&P Assessment and Plan (1) Fracture of hip, left, closed: Qualifiers: Encounter type: initial encounter Qualified Code(s): S72.002A - Fracture of unspecified part of neck of left femur, initial encounter for closed fracture Code(s): S72.002A - Fracture of unspecified part of neck of left femur, initial encounter for closed fracture Status: Acute Assessment and Plan: S/p fall from bed at home. Denies head trauma. Dr. Greenfield consulted from ED; POD 0 Left hip ORIF with IT nail; appreciate recommendations. Doing well postoperatively. * Post op care, pain management, PT/OT, DVT ppx per Dr. Greenfield * Rec avoiding narcotics if tolerable given age/fall risk * Monitor * CC working on placement to [facility] vs SNF facility (2) Pure hypercholesterolemia, unspecified: Code(s): E78.00 - Pure hypercholesterolemia, unspecified Status: Acute Assessment and Plan: LFTs WNL * Continue Statin (3) Essential (primary) hypertension: Code(s): I10 - Essential (primary) hypertension Status: Acute Assessment and Plan: BP elevated during surgery; prior to surgery BP 140s sys * Continue home medication * Monitor (4) Gastro-esophageal reflux disease without esophagitis: Code(s): K21.9 - Gastro-esophageal reflux disease without esophagitis Status: Acute Assessment and Plan: No acute issues * continue home PPI (5) Obstructive sleep apnea (adult) (pediatric): Code(s): G47.33 - Obstructive sleep apnea (adult) (pediatric) Status: Acute Assessment and Plan: * Continue home CPAP (6) Vertigo: Code(s): R42 - Dizziness and giddiness Status: Acute Assessment and Plan: * Continue meclizine (7) Abdominal aortic aneurysm (AAA) without rupture: Onset Date: 12/08/17 Code(s): I71.4 - Abdominal aortic aneurysm, without rupture Status: Acute Assessment and Plan: Stable upon CT abd earlier this week compared to image in 11/2017; 3.2 cm * f/u with PCP (8) CHF (congestive heart failure): Code(s): I50.9 - Heart failure, unspecified Status: Acute Assessment and Plan: Appears to be compensated at this time. Patient believes she had an Echo through [facility] [facility] last year; she sees Dr. Green. Last Echo noted in EMR was in 2016 with EF of 45 % and diastolic dysfunction * Continue home metoprolol * Will d/c IVF as patient now tolerating PO well; resume if n/v. Caution as to not fluid overload patient * Encourage PO intake (9) CAD (coronary artery disease): Code(s): I25.10 - Atherosclerotic heart disease of [place] coronary artery without angina pectoris Status: Acute Assessment and Plan: Hx of nSTEMI s/p CABG 07/2016. Follows Dr. Green from [facility] [place] * Continue ASA Additional Plan Patient takes predisone 15 mg daily prescribed by her PCP for LE inflammation and swelling per patient; unclear diagnosis. I have asked nursing to update her home medications * Continue home predisone * F/u with PCP Subjective Date/time seen: 01/23/20 16:15 Interval history: Patient is a 84 yo F with history of CAD (s/p CABG 2016), CHF, HTN, and AFSHIN who is
--- NOTE | 2020-01-23 16:15 | PM.IMPN ---
Progress Note: A&P Assessment and Plan (1) Fracture of hip, left, closed: Qualifiers: Encounter type: initial encounter Qualified Code(s): S72.002A - Fracture of unspecified part of neck of left femur, initial encounter for closed fracture Code(s): S72.002A - Fracture of unspecified part of neck of left femur, initial encounter for closed fracture Status: Acute Assessment and Plan: S/p fall from bed at home. Denies head trauma. Dr. Greenfield consulted from ED; POD 0 Left hip ORIF with IT nail; appreciate recommendations. Doing well postoperatively. Post op care, pain management, PT/OT, DVT ppx per Dr. Greenfield Rec avoiding narcotics if tolerable given age/fall risk Monitor CC working on placement to [facility] vs SNF facility (2) Pure hypercholesterolemia, unspecified: Code(s): E78.00 - Pure hypercholesterolemia, unspecified Status: Acute Assessment and Plan: LFTs WNL Continue Statin (3) Essential (primary) hypertension: Code(s): I10 - Essential (primary) hypertension Status: Acute Assessment and Plan: BP elevated during surgery; prior to surgery BP 140s sys Continue home medication Monitor (4) Gastro-esophageal reflux disease without esophagitis: Code(s): K21.9 - Gastro-esophageal reflux disease without esophagitis Status: Acute Assessment and Plan: No acute issues continue home PPI (5) Obstructive sleep apnea (adult) (pediatric): Code(s): G47.33 - Obstructive sleep apnea (adult) (pediatric) Status: Acute Assessment and Plan: Continue home CPAP (6) Vertigo: Code(s): R42 - Dizziness and giddiness Status: Acute Assessment and Plan: Continue meclizine (7) Abdominal aortic aneurysm (AAA) without rupture: Onset Date: 12/08/17 Code(s): I71.4 - Abdominal aortic aneurysm, without rupture Status: Acute Assessment and Plan: Stable upon CT abd earlier this week compared to image in 11/2017; 3.2 cm f/u with PCP (8) CHF (congestive heart failure): Code(s): I50.9 - Heart failure, unspecified Status: Acute Assessment and Plan: Appears to be compensated at this time. Patient believes she had an Echo [place] [facility] last [place]; she sees Dr. Green. Last Echo noted in EMR was in 2016 with EF of 45 % and diastolic dysfunction Continue home metoprolol Will d/c IVF as patient now tolerating PO well; resume if n/v. Caution as to not fluid overload patient Encourage PO intake (9) CAD (coronary artery disease): Code(s): I25.10 - Atherosclerotic heart disease of [place] coronary artery without angina pectoris Status: Acute Assessment and Plan: Hx of nSTEMI s/p CABG 07/2016. Follows Dr. Green from [facility] Continue ASA Additional Plan Patient takes predisone 15 mg daily prescribed by her PCP for LE inflammation and swelling per patient; unclear diagnosis. I have asked nursing to update her home medications Continue home predisone F/u with PCP Subjective Date/time seen: 01/23/20 16:15 Interval history: Patient is a 84 yo F with history of CAD (s/p CABG 2016), CHF, HTN, and AFSHIN who is here for left hip fracture s/p fall while at home; POD 0 of ORIF IT of left hip per Dr. Greenfield. Patient is doing well today; she is in minimal pain today after her surgery. She has sensation and able to move left LE. Tolerating her PO fluids currently. She has no other complaints at the moment. Denies f/c/s, headaches, dizziness, lightheadedness, cp/palpitations, sob/cough, n/v/d/c, abd pain, changes in BMs, calf pa
[2020-01-23] MEDS: ALPRAZolam 0.5 MG TABLET PO (21:30)
[2020-01-23] MEDS: SIMVASTATIN 20 MG TABLET 40 MG PO (21:31)
[2020-01-24] VITALS (7 sets, daily range): BP systolic 127–164; BP diastolic 62–78; PULSE 61–76; RESP 15–20; TEMP 36.4–37; O2SAT 93–100; BMI 10.0
[2020-01-24 06:21] LABS: Basophils Percent Auto 0.1 % (0.2-1.2); Eosinophils Percent Auto 0.2 % (0-4.4); Hematocrit 31.7 % (37.0-47.0); Hemoglobin 10.1 g/dL (12.0-15.0); Immature Granulocyte Absolute 0.08 K/mm3 (0.00-0.031); Immature Granulocyte Percent A 0.7 % (0-0.5); Lymphocytes Absolute Auto 1.08 K/mm3 (0.9-3.2); Mean Corpuscular HGB Conc 31.9 g/dl (32-36); Mean Corpuscular Hemoglobin 30.3 pg (26-34); Mean Corpuscular Volume 95.2 fl (80-100); Mean Platelet Volume 9.5 fl (7.4-10.4); Monocytes Percent Auto 7.9 % (2.6-8.5); Neutrophils Absolute Auto 9.9 K/mm3 (1.3-6.7); Neutrophils Percent Auto 82.1 % (45.5-73.1); Platelet Count Result 154 k/mm3 (150-375); Red Blood Count 3.33 M/mm3 (4.2-5.4); Red Cell Distribution Width 15.6 % (11.5-14.5); White Blood Count 12.1 K/mm3 (4.5-10.0)
[2020-01-24 06:31] LABS: Blood Urea Nitrogen 14 mg/dL (7-17); Calcium 8.5 mg/dL (8.4-10.2); Carbon Dioxide 28 mmol/L (22-30); Chloride 106 mmol/L (98-107); Estimated CRCL calculation 77 ml/min; Estimated Glomerular Filt Rate > 60; Glucose 125 mg/dL (65-105); Magnesium 2.1 mg/dL (1.6-2.3); Potassium 3.9 mmol/L (3.4-5.0); Sodium 138 mmol/L (137-145)
[2020-01-24] MEDS: ACETAMINOPHEN 500 MG TABLET 1000 MG PO ×4 (06:38→23:26)
[2020-01-24] MEDS: ceFAZolin 2 GM/D5W 50 ML 2 GM/50 ML BAG IVPB (06:38)
--- NOTE | 2020-01-24 08:27 | WPDANESPN ---
Anes - Prog Note Post-Op Date/Time: 01/24/20 08:27 Cardiovascular status: normal Respiratory status: normal Airway patency: baseline Mental status: baseline Post-Op hydration status: normal Vital Signs: Last Vital Signs Temp 37.0 C 01/24/20 06:00 Pulse 67 01/24/20 06:00 Resp 20 01/24/20 06:00 BP 164/78 H 01/24/20 06:00 Pulse Ox 97 01/24/20 06:00 I/O: Intake & Output 01/23/20 01/24/20 01/24/20 23:59 07:59 15:59 Intake Total 1090 150 Output Total 1500 1400 Balance -410 -1250 Laboratory Tests 01/24/20 05:25 01/24/20 05:25 01/23/20 01/24/20 01/24/20 23:03 05:25 05:25 WBC 12.1 H RBC 3.33 L Hgb 10.1 L Hct 31.7 L MCV 95.2 MCH 30.3 MCHC 31.9 L RDW 15.6 H Plt Count 154 MPV 9.5 Immature Gran % (Auto) 0.7 H Neut % (Auto) 82.1 H Lymph % (Auto) 9.0 L [place] % (Auto) 7.9 Eos % (Auto) 0.2 Baso % (Auto) 0.1 L Lymph # (Auto) 1.08 [place] # (Auto) 1.0 H Eos # (Auto) 0.0 Baso # (Auto) 0.0 Abs Immat Gran (auto) 0.08 H Absolute Neuts (auto) 9.9 H Absolute Nucleated RBC 0.0 Nucleated RBC % 0.0 Sodium 138 Potassium 3.9 Chloride 106 Carbon Dioxide 28 BUN 14 Creatinine 0.50 L Estim Creat Clear Calc 77 Estimated GFR > 60 Glucose 125 H Calcium 8.5 Magnesium 2.1 SARS-CoV-2 RNA (RT-PCR) Pending Post-procedural complaints: none Patient Feedback: Patient satisfied with anesthetic care.
[2020-01-24] MEDS: FERROUS SULFATE 324 MG TABLET PO ×2 (09:15→16:31)
[2020-01-24] MEDS: METOPROLOL TARTRATE 50 MG TAB PO ×2 (09:16→21:07)
[2020-01-24] MEDS: PANTOPRAZOLE SOD SESQUIHYDRATE 20 MG TAB PO (09:16)
[2020-01-24] MEDS: DOCUSATE SODIUM 100 MG CAPSULE PO ×2 (09:16→16:32)
[2020-01-24] MEDS: FAMOTIDINE 20 MG TABLET PO ×2 (09:16→21:07)
[2020-01-24] MEDS: predniSONE 5 MG TABLET 15 MG PO (09:18)
[2020-01-24] MEDS: ENOXAPARIN 40 MG/0.4 ML SYRINGE SUB-Q (09:18)
[2020-01-24] MEDS: VITAMIN B COMPLEX CAPSULE 1 CAP PO (09:18)
[2020-01-24] MEDS: MULTIVITAMINS THERAPEUTIC TAB (*BKC) 1 TABLET PO (09:18)
--- NOTE | 2020-01-24 10:40 | P.CDI_ITS ---
CDI Query Clarification Request - CHF, unspecified has been documented. - Last Echo noted in EMR was in 2017 with EF of 45 % and diastolic dysfunction and Appears to be compensated at this time , has been documented - Coders cannot code from echo results Please clarify type of CHF: * Systolic * Diastolic * Both systolic and diastolic * Unable to determine
--- NOTE | 2020-01-24 10:41 | PM.PNORT ---
Progress Note: A&P Assessment and Plan (1) Closed intertrochanteric fracture of left hip: Qualifiers: Encounter type: subsequent encounter Fracture alignment: displaced Fracture healing: with routine healing Qualified Code(s): S72.142D - Displaced intertrochanteric fracture of left femur, subsequent encounter for closed fracture with routine healing Code(s): S72.142A - Displaced intertrochanteric fracture of left femur, initial encounter for closed fracture Status: Acute Assessment and Plan: 84-year-old female postop day one left IT hip fracture stabilization and doing very well. Surgery discussed and instructions reviewed. Awaiting placement, perhaps in the TR. I will follow while she is in the hospital. Subjective Subjective Date/Time Seen: 01/24/20 10:41 Post Op day: 1 Principal diagnosis: status post ORIF left IT hip fracture Interval history: 84-year-old female postop day one left IT hip fracture doing very well. She is sitting up in a chair today and having very little discomfort. Review of Systems Constitutional: Constitutional: Denies chills and Denies fever(s) Eyes: Eyes: Reports no additional eye complaints ENT: Reports system reviewed and no additional complaints, except as documented Cardiovascular: Cardiovascular: Denies chest pain and Denies dyspnea on exertion Respiratory: Respiratory: Reports no additional respiratory complaints and Denies dyspnea on exertion Gastrointestinal: Gastrointestinal: Denies abdominal pain and Denies bloating Exam Const: General: cooperative, no acute distress and alert Nutritional Appearance: other Orientation/consciousness: patient oriented x3 Limitations: no limitations HENMT: Head: normal to inspection Ears: hearing grossly normal bilaterally Face and sinus: face symmetric Mouth: Yes moist mucous membranes Teeth and gingiva: fair dentition Eyes: Alignment and Position: alignment normal and position normal Sclera: sclerae normal Neck: Neck: normal visual inspection and nontender Chest: Chest palpation & inspection: normal inspection of the chest Resp: Effort & Inspection: normal respiratory effort and able to speak in complete sentences GI: Inspection: normal to inspection ( Nondistended nontender) Skin: General skin exam: normal color Rashes: no rashes Neuro: General: patient oriented x3 Cognition (Neuro): normal cognition Speech: normal speech Gait exam (Neuro): Other gait observations present Motor exam (neuro): 5/5 motor strength present throughout Sensory Exam: normal sensation Extrem: General: normal to inspection and other Other: Exam of the left hip wounds show dry dressings with very little swelling and no erythema. Motor and sensory function left lower extremity grossly intact. Bilateral calves are nontender. Psych: Appearance: grossly normal Mental Status: mental status grossly normal Objective Data Vital Signs Vital Signs: Vital Signs - 24 hr 01/23/20 10:56 01/23/20 14:00 01/23/20 21:31 Temperature 98.0 F Pulse Rate 74 72 64 Respiratory Rate 14 Blood Pressure 155/72 H Pulse Oximetry 97 01/23/20 22:00 01/23/20 22:14 01/24/20 01:45 Temperature 98 F Pulse Rate 82 78 65 Respiratory Rate 16 16 15 Blood Pressure 152/67 H Pulse Oximetry 94 94 93 01/24/20 02:00 01/24/20 06:00 01/24/20 09:16 Temperature 97.5 F L 98.6 F Pulse Rate 61 67 76 Respiratory Rate 20 20 Blood Pressure 130/62 164/78 H Pulse Oximetry 96 97 Intake/Output Intake/Output: Intake & Output 01/21/20 01/22/20 01/23/20 01/24/20 23:59 23:59 23:59 23:59 Intake Total 490 / 490 1910 / 1910 150 / 150 Output Total 250 / 250 2175 / 2050.0 1400 / 1400 Balance 240 / 240 -265 / -140.0 -1250 / -1250 Meds/Results Medications: Active Medications Generic Name Dose Route Start Last Admin Trade Name Freq PRN Reason Stop Dose Admin Acetaminophen 1,000 mg 01/23/20 12:00 01/24/20 06:38 Tylenol Ta
--- NOTE | 2020-01-24 12:56 | PM.IMPN ---
Progress Note: A&P Assessment and Plan (1) Fracture of hip, left, closed: Qualifiers: Encounter type: initial encounter Qualified Code(s): S72.002A - Fracture of unspecified part of neck of left femur, initial encounter for closed fracture Code(s): S72.002A - Fracture of unspecified part of neck of left femur, initial encounter for closed fracture Status: Acute Assessment and Plan: S/p fall from bed at home. Denies head trauma. S/p left hip ORIF with IT nail on 01/23/[address] Greenfield. She appears to have tolerated the procedure well and her pain is well controlled. Post op care, pain management, PT/OT, DVT ppx per Dr. Greenfield Continue to monitor CC working on placement to [facility] vs SNF facility (2) Essential (primary) hypertension: Code(s): I10 - Essential (primary) hypertension Status: Acute Assessment and Plan: BP elevated during surgery; prior to surgery BP 140s sys, BP elevated today at 164/78, possibly secondary to pain. Continue metoprolol Continue to monitor BP closely, consider additional agent if remains elevated (3) Pure hypercholesterolemia, unspecified: Code(s): E78.00 - Pure hypercholesterolemia, unspecified Status: Acute Assessment and Plan: LFTs WNL Continue Statin (4) Gastro-esophageal reflux disease without esophagitis: Code(s): K21.9 - Gastro-esophageal reflux disease without esophagitis Status: Acute Assessment and Plan: No acute issues continue home PPI (5) Obstructive sleep apnea (adult) (pediatric): Code(s): G47.33 - Obstructive sleep apnea (adult) (pediatric) Status: Acute Assessment and Plan: Continue home CPAP (6) Vertigo: Code(s): R42 - Dizziness and giddiness Status: Acute Assessment and Plan: Chronic and stable. No vertigo at this time. Continue meclizine (7) Abdominal aortic aneurysm (AAA) without rupture: Onset Date: 12/08/17 Code(s): I71.4 - Abdominal aortic aneurysm, without rupture Status: Acute Assessment and Plan: Stable upon CT abd earlier this week compared to imaging from 11/2017; 3.2 cm f/u with PCP (8) CHF (congestive heart failure): Qualifiers: Heart failure type: combined systolic and diastolic Heart failure chronicity: chronic Qualified Code(s): I50.42 - Chronic combined systolic (congestive) and diastolic (congestive) heart failure Code(s): I50.9 - Heart failure, unspecified Status: Acute Assessment and Plan: Appears to be compensated at this time. Patient believes she had an Echo through [facility] [place] last year; she sees Dr. Green. Last Echo noted in EMR was in 2016 with EF of 45% and diastolic dysfunction Continue home metoprolol IVF were d/c on 01/22 postoperatively given risk for fluid overload. Patient tolerating oral intake (9) CAD (coronary artery disease): Code(s): I25.10 - Atherosclerotic heart disease of [place] coronary artery without angina pectoris Status: Acute Assessment and Plan: Hx of nSTEMI s/p CABG 07/2016. Follows Dr. Green from [facility] [place] Continue ASA Additional Plan Continue stool softener. Subjective Date/time seen: 01/24/20 12:56 Interval history: Date of service: 01/24/2020 She reports she is doing well today. Her pain is 1/10 at this time. She felt a little weak this morning. She was having some discomfort while sitting up in the chair. She denies shortness of breath, chest pain, or cough. She denies any dizziness or lightheadedness. Her appetite has been good. She slept well last night using her CPAP. She is urinating regularly and denies dysuria or hematuria. She notes abdominal fullness but denies pain or cramping. Her last bowel movement was 3 days ago and she feels constipated. She has no additional concerns at this time. Review of Systems Review of Systems: Narrative: A 12 point review of systems
[2020-01-24 14:26] LABS: SARS-CoV-2 RNA PCR Negative
[2020-01-24] MEDS: SIMVASTATIN 20 MG TABLET 40 MG PO (21:07)
[2020-01-24] MEDS: ALPRAZolam 0.5 MG TABLET PO (21:08)
[2020-01-25 02:31] VITALS: PULSE 68; RESP 14; O2SAT 96
[2020-01-25] MEDS: ACETAMINOPHEN 500 MG TABLET 1000 MG PO ×2 (05:38→11:01)
[2020-01-25 05:53] LABS: Hematocrit 29.7 % (37.0-47.0); Hemoglobin 9.3 g/dL (12.0-15.0); Mean Corpuscular HGB Conc 31.3 g/dl (32-36); Mean Corpuscular Volume 95.8 fl (80-100); Mean Platelet Volume 9.7 fl (7.4-10.4); Platelet Count Result 147 k/mm3 (150-375); Red Cell Distribution Width 15.6 % (11.5-14.5); White Blood Count 10.3 K/mm3 (4.5-10.0)
[2020-01-25 06:00] VITALS: BP 147/76; PULSE 66; RESP 18; TEMP 36.7; O2SAT 98
[2020-01-25 06:13] LABS: Blood Urea Nitrogen 14 mg/dL (7-17); Calcium 8.3 mg/dL (8.4-10.2); Carbon Dioxide 29 mmol/L (22-30); Chloride 105 mmol/L (98-107); Estimated CRCL calculation 77 ml/min; Estimated Glomerular Filt Rate > 60; Glucose 93 mg/dL (65-105); Potassium 3.6 mmol/L (3.4-5.0); Sodium 137 mmol/L (137-145)
[2020-01-25 09:03] VITALS: PULSE 66
[2020-01-25] MEDS: VITAMIN B COMPLEX CAPSULE 1 CAP PO (09:03)
[2020-01-25] MEDS: ENOXAPARIN 40 MG/0.4 ML SYRINGE SUB-Q (09:03)
[2020-01-25] MEDS: PANTOPRAZOLE SOD SESQUIHYDRATE 20 MG TAB PO (09:03)
[2020-01-25] MEDS: METOPROLOL TARTRATE 50 MG TAB PO (09:03)
[2020-01-25] MEDS: DOCUSATE SODIUM 100 MG CAPSULE PO (09:03)
[2020-01-25] MEDS: predniSONE 5 MG TABLET 15 MG PO (09:04)
[2020-01-25] MEDS: FERROUS SULFATE 324 MG TABLET PO (09:04)
[2020-01-25] MEDS: MULTIVITAMINS THERAPEUTIC TAB (*BKC) 1 TABLET PO (09:04)
[2020-01-25] MEDS: FAMOTIDINE 20 MG TABLET PO (09:04)
[2020-01-25 10:16] VITALS: O2SAT 93
--- NOTE | 2020-01-25 11:35 | PM.PNORT ---
Progress Note: A&P Assessment and Plan (1) Closed intertrochanteric fracture of left hip: Qualifiers: Encounter type: subsequent encounter Fracture alignment: displaced Fracture healing: with routine healing Qualified Code(s): S72.142D - Displaced intertrochanteric fracture of left femur, subsequent encounter for closed fracture with routine healing Code(s): S72.142A - Displaced intertrochanteric fracture of left femur, initial encounter for closed fracture Status: Acute Assessment and Plan: Doing well postop day two. Continue with PT and OT. Awaiting placement, possibly at [facility]. Following. Time Spent With Patient Time with patient: 15 - 25 minutes Subjective Subjective Date/Time Seen: 01/25/20 11:35 Post Op day: 2 Principal diagnosis: ORIF left IT hip fracture Interval history: 84-year-old female postop day two left IT hip fracture and overall doing well. No new complaints. Pain well controlled. Review of Systems Constitutional: Constitutional: Denies chills and Denies fever(s) Eyes: Eyes: Reports no additional eye complaints ENT: Reports system reviewed and no additional complaints, except as documented Cardiovascular: Cardiovascular: Denies chest pain and Denies dyspnea on exertion Respiratory: Respiratory: Reports no additional respiratory complaints and Denies dyspnea on exertion Gastrointestinal: Gastrointestinal: Denies abdominal pain and Denies bloating Exam Const: General: cooperative, no acute distress and alert Nutritional Appearance: other Orientation/consciousness: patient oriented x3 Limitations: no limitations HENMT: Head: normal to inspection Ears: hearing grossly normal bilaterally Face and sinus: face symmetric Mouth: Yes moist mucous membranes Teeth and gingiva: fair dentition Eyes: Alignment and Position: alignment normal and position normal Sclera: sclerae normal Neck: Neck: normal visual inspection and nontender Chest: Chest palpation & inspection: normal inspection of the chest Resp: Effort & Inspection: normal respiratory effort and able to speak in complete sentences GI: Inspection: other Skin: General skin exam: normal color Rashes: no rashes Neuro: General: patient oriented x3 Cognition (Neuro): normal cognition Speech: normal speech Gait exam (Neuro): Other gait observations present Motor exam (neuro): Other motor observations present ( No motor deficits either lower extremity) Sensory Exam: normal sensation Extrem: General: normal to inspection and other Other: Exam of left hip wounds show them to be dry. Minimal swelling in the left thigh and only minimal bruising. Psych: Appearance: grossly normal Mental Status: mental status grossly normal Objective Data Vital Signs Vital Signs: Vital Signs - 24 hr 01/24/20 21:03 01/24/20 21:07 01/24/20 21:11 Temperature 98.5 F Pulse Rate 72 76 76 Respiratory Rate 18 16 Blood Pressure 127/65 Pulse Oximetry 98 100 01/25/20 02:31 01/25/20 06:00 01/25/20 09:03 Temperature 98.0 F Pulse Rate 68 66 66 Respiratory Rate 14 18 Blood Pressure 147/76 H Pulse Oximetry 96 98 01/25/20 10:16 Temperature Pulse Rate Respiratory Rate Blood Pressure Pulse Oximetry 93 Intake/Output Intake/Output: Intake & Output 01/22/20 01/23/20 01/24/20 01/25/20 23:59 23:59 23:59 23:59 Intake Total 490 / 490 1910 / 1910 150 / 150 760 / 760 Output Total 250 / 250 2175 / 2050.0 1400 / 1400 Balance 240 / 240 -265 / -140.0 -1250 / -1250 760 / 760 Meds/Results Medications: Active Medications Generic Name Dose Route Start Last Admin Trade Name Freq PRN Reason Stop Dose Admin Acetaminophen 1,000 mg 01/23/20 12:00 01/25/20 11:01 Tylenol Tablet PO 1,000 mg Q6HR KETAN Administration Al Hydrox/Mg Hydrox/Simethicone 30 ml 01/23/20 09:54 Mylanta PO Q6H PRN Indigestion Alprazolam 0.5 mg 01/22/20 21:00 01/24/20 21:08 Xanax PO 0.5 mg HS
--- NOTE | 2020-01-25 12:18 | PM.DS ---
DS: Admitting Diagnosis Admitting Diagnosis Admitting Diagnosis: Fracture of unspecified part of neck of left femur, initial encounter for closed fracture DS: Discharge Diagnosis Discharge Diagnosis (1) Fracture of hip, left, closed: Qualifiers: Encounter type: initial encounter Qualified Code(s): S72.002A - Fracture of unspecified part of neck of left femur, initial encounter for closed fracture Code(s): S72.002A - Fracture of unspecified part of neck of left femur, initial encounter for closed fracture Status: Acute Assessment and Plan: She had a fall from bed at home with no head trauma. She underwent left hip ORIF with IT nail on 01/23/[address] Greenfield. She tolerated the procedure well and her pain was well controlled. She will continue 325 mg aspirin b.i.d.for 6 weeks for DVT prophylaxis. She was accepted for placement at [facility]. She will follow-up with Dr. Greenfield outpatient. (2) Essential (primary) hypertension: Code(s): I10 - Essential (primary) hypertension Status: Acute Assessment and Plan: BP was elevated at presentation, but was generally well controlled during her stay. She will continue metoprolol. (3) Pure hypercholesterolemia, unspecified: Code(s): E78.00 - Pure hypercholesterolemia, unspecified Status: Acute Assessment and Plan: LFTs were reviewed and were within normal limits. Continue Statin (4) Gastro-esophageal reflux disease without esophagitis: Code(s): K21.9 - Gastro-esophageal reflux disease without esophagitis Status: Acute Assessment and Plan: No acute issues. Continue home PPI (5) Obstructive sleep apnea (adult) (pediatric): Code(s): G47.33 - Obstructive sleep apnea (adult) (pediatric) Status: Acute Assessment and Plan: Continue home CPAP (6) Vertigo: Code(s): R42 - Dizziness and giddiness Status: Acute Assessment and Plan: Chronic and stable with no episodes. Continue meclizine (7) Abdominal aortic aneurysm (AAA) without rupture: Onset Date: 12/08/17 Code(s): I71.4 - Abdominal aortic aneurysm, without rupture Status: Acute Assessment and Plan: Stable upon CT a/p on 01/19/2020 compared to imaging from 11/2017; 3.2 cm. She is aware of these findings and will follow-up with her PCP. (8) CHF (congestive heart failure): Qualifiers: Heart failure chronicity: chronic Heart failure type: combined systolic and diastolic Qualified Code(s): I50.42 - Chronic combined systolic (congestive) and diastolic (congestive) heart failure Code(s): I50.9 - Heart failure, unspecified Status: Acute Assessment and Plan: Appears to be compensated at this time. Patient believes she had an Echo last year and is established with Dr. Green. Last Echo noted in EMR was in 2017 with EF of 45% and diastolic dysfunction. Continue home metoprolol (9) CAD (coronary artery disease): Code(s): I25.10 - Atherosclerotic heart disease of [place] coronary artery without angina pectoris Status: Acute Assessment and Plan: Hx of nSTEMI s/p CABG 07/2016. Follows Dr. Green from [facility]. Continue ASA as above. DS: Summary Hospital Course Reason for hospitalization: Fall Hospital Course: Date of admission 01/22/2020 Date of discharge 01/25/2020 Annie Denise is a 84 year old female with history of CAD (s/p CABG 2016), CHF, HTN, and AFSHIN who presented to the ED on 01/22/20, from home via EMS with complaints of left hip pain after sustaining a fall at home. Patient was in her normal state of health last night when she went to bed, and woke up this morning on the floor. She states she usually tosses and turns in bed when she sleeps and thinks she may have rolled out of bed, landing on her left side. She denied hitting her head. At presentation, BP was elevated at 216/80 with additional vitals stable, CXR with no
--- NOTE | 2020-01-25 13:56 | PCPTNOTE ---
Attempted to see Pt for second session. RN was reviewing D/C from acute with Pt and [facility].
== END 2020-01-25 15:12 | DRG 481 ==
LOC: ANHED 08:48 → ANH3MEDSUR 14:15
PROVIDERS: Family Medicine; Orthopaedic Surgery; Physician Assistant; Admitting Provider Family Medicine; Emergency Provider Emergency Medicine; PCP Family Medicine; Visit Provider Physician Assistant
PROC: 0QS734Z Reposition Left Upper Femur with Internal Fixation Device, Percutaneous Approach (ICD-10-PCS; CPT 27245; principal; 2020-01-23 07:30)
DX: S72.142A Displaced intertrochanteric fracture of left femur, initial encounter for closed fracture (principal); I50.42 Chronic combined systolic (congestive) and diastolic (congestive) heart failure; I11.0 Hypertensive heart disease with heart failure; W06.XXXA Fall from bed, initial encounter; E78.00 Pure hypercholesterolemia, unspecified; I25.10 Atherosclerotic heart disease of native coronary artery without angina pectoris; K21.9 Gastro-esophageal reflux disease without esophagitis; G47.33 Obstructive sleep apnea (adult) (pediatric); R42 Dizziness and giddiness; I71.4 Abdominal aortic aneurysm, without rupture; Z11.59 Encounter for screening for other viral diseases; Z79.82 Long term (current) use of aspirin; Z79.899 Other long term (current) drug therapy; Z95.1 Presence of aortocoronary bypass graft; Z96.653 Presence of artificial knee joint, bilateral
CPT/HCPCS: 36415; 71045; 73502; 74150; 80048; 80053; 81001; 83735; 85025; 85027; 85610; 85730; 87635; 93005; 96374; 96375; 97110; 97116; 97161; 97165; 97530; 97535; 99285; A9270; C1713; C9803; J0360; J0690; J1100; J1650; J2270; J2370; J2405; J2704; J3010; J7030; J7120; J7512; U0003

== ENCOUNTER 2020-01-25 15:05 | IRF | payer MEDICARE, SELFPAY ==
[2020-01-25 15:10] VITALS: BP 131/59; PULSE 76; RESP 18; TEMP 36.8; O2SAT 98; BMI 38.3
--- NOTE | 2020-01-25 18:01 | ADMGEN ---
This patient, Annie Denise, was admitted to [facility] Room 221-01. Patient/family oriented to hospital policies and general routines including ID bracelet, bed and alarms, visiting hours, pain management, procedures, bathroom and other care routines, personal items, smoking policy, room service/diet, and visiting hours. Valuables list has been completed. Information on how to activate the Rapid Response Team has been discussed. Patient/Family are encouraged to report perceived risks to care and to ask questions if they do not understand what they are told or what they should do.
[2020-01-25 18:47] VITALS: PULSE 76; RESP 18; O2SAT 98
[2020-01-25 20:39] VITALS: PULSE 76
[2020-01-25] MEDS: SIMVASTATIN 20 MG TABLET 40 MG PO (20:39)
[2020-01-25] MEDS: FERROUS SULFATE 324 MG TABLET PO (20:39)
[2020-01-25] MEDS: METOPROLOL TARTRATE 50 MG TAB PO (20:39)
[2020-01-25] MEDS: OPTI-GEN TAB 1 TABLET PO (20:39)
[2020-01-25] MEDS: ALPRAZolam 0.5 MG TABLET PO (20:39)
[2020-01-25] MEDS: ACETAMINOPHEN 325 MG TABLET PO (20:41)
[2020-01-25 22:00] VITALS: BP 148/59; PULSE 82; RESP 17; TEMP 37; O2SAT 99
[2020-01-25 22:01] VITALS: PULSE 100; O2SAT 94
[2020-01-26] VITALS (8 sets, daily range): BP systolic 116–141; BP diastolic 57–73; PULSE 76–94; RESP 18; TEMP 36.6–37; O2SAT 95–99; BMI 38.3
[2020-01-26 05:26] LABS: Basophils Percent Auto 0.2 % (0.2-1.2); Eosinophils Absolute Auto 0.1 K/mm3 (0-0.3); Eosinophils Percent Auto 1.2 % (0-4.4); Hematocrit 28.3 % (37.0-47.0); Hemoglobin 8.9 g/dL (12.0-15.0); Immature Granulocyte Absolute 0.06 K/mm3 (0.00-0.031); Immature Granulocyte Percent A 0.6 % (0-0.5); Lymphocytes Absolute Auto 1.45 K/mm3 (0.9-3.2); Lymphocytes Percent Auto 15.4 % (18.3-44.2); Mean Corpuscular HGB Conc 31.4 g/dl (32-36); Mean Corpuscular Volume 95.3 fl (80-100); Mean Platelet Volume 9.4 fl (7.4-10.4); Monocytes Absolute Auto 0.6 K/mm3 (0.1-0.6); Monocytes Percent Auto 5.8 % (2.6-8.5); Neutrophils Absolute Auto 7.2 K/mm3 (1.3-6.7); Neutrophils Percent Auto 76.8 % (45.5-73.1); Platelet Count Result 170 k/mm3 (150-375); Red Blood Count 2.97 M/mm3 (4.2-5.4); Red Cell Distribution Width 15.3 % (11.5-14.5); White Blood Count 9.4 K/mm3 (4.5-10.0)
[2020-01-26 05:34] LABS: Blood Urea Nitrogen 11 mg/dL (7-17); Calcium 8.4 mg/dL (8.4-10.2); Carbon Dioxide 29 mmol/L (22-30); Chloride 104 mmol/L (98-107); Estimated CRCL calculation 76 ml/min; Estimated Glomerular Filt Rate > 60; Glucose 93 mg/dL (65-105); Potassium 3.8 mmol/L (3.4-5.0); Sodium 137 mmol/L (137-145)
[2020-01-26] MEDS: PANTOPRAZOLE SOD SESQUIHYDRATE 20 MG TAB PO (08:31)
[2020-01-26] MEDS: predniSONE 5 MG TABLET 15 MG PO (08:32)
[2020-01-26] MEDS: ASPIRIN 325 MG TABLET PO ×2 (08:32→17:13)
[2020-01-26] MEDS: VITAMIN B COMPLEX CAPSULE 1 CAP PO (08:33)
[2020-01-26] MEDS: FERROUS SULFATE 324 MG TABLET PO ×2 (08:34→17:14)
[2020-01-26] MEDS: CYANOCOBALAMIN 1,000 MCG TABLET 1000 MCG PO (08:34)
[2020-01-26] MEDS: METOPROLOL TARTRATE 50 MG TAB PO ×2 (08:34→20:20)
[2020-01-26] MEDS: MULTIVITAMINS THERAPEUTIC TAB (*BKC) 1 TABLET PO (08:35)
[2020-01-26] MEDS: ACETAMINOPHEN 325 MG TABLET PO (08:39)
[2020-01-26] MEDS: OPTI-GEN TAB 1 TABLET PO ×2 (08:40→17:14)
--- NOTE | 2020-01-26 10:30 | WPDREHABHP ---
H&P: HPI History of Present Illness Chief complaint: Left Hip Fracture Narrative: Annie Denise is a 84 year old female HISTORY OF PRESENT ILLNESS: The patient's primary rehab impairment category is orthopedic lower extremity fracture The etiologic diagnosis is acute communicated intertrochanteric left femur fracture I saw this patient [id number] on January 25 at 10:30 a.m. The patient is a 84-year-old right-handed white woman with a medical history of coronary artery disease status post CABG in 2017, congestive heart failure, hypertension and obstructive sleep apnea who presented to [facility] on January 22, 2020. The patient arrived from home why it was well EMS with complaints of left hip pain after sustaining a fall at home. The patient was in her usual state of health the night before when she went to bed and woke up this morning on the floor. She stated she usually tosses and turns in the bed when she has sleeves and thinks she may have a rolled out of the bed and landed on her left side. She also stated she does not believe she hit her head. She stated pain is worse with movement. She described her pain as dull and just and uncomfortable feeling there was no loss of sensation or movement in lower leg bilaterally. She typically is able to ambulate decently without any assistance at home although Allan noted she has been having walking a bit slow and slumped over lately. She reported no previous falls. She has been noting swelling in the lower legs which her PCPs treating with the daily prednisone. The patient blood pressure was elevated while in the emergency room at 216/88 as she was not taking morning medication which was hydralazine which was given and the blood pressure within normal limits came down. The lab work revealed hemoglobin of 11.8 and platelet of 146 and creatinine of 0.6 an EKG showed sinus bradycardia with left axis deviation. A chest x-ray revealed no cardiopulmonary abnormalities. I hip pelvic x-rays revealed an acute comminuted intertrochanteric left femur fracture. And orthopedic consultation was obtained and she underwent surgery on January 23, 2020 with an open reduction internal fixation of the left intertrochanteric hip fracture. Multiple lab daughters were reviewed by this examiner. An intraoperative x-ray showed a comminuted intra rather intertrochanteric hip fracture of proximal left femur status post open reduction internal fixation and moderate left hip osteoarthritis. The hospitalist saw the patient later on the postop days a is 0 in order to discontinue IV fluids and continue aspirin at home medications. She is on aspirin 325 milligram p.o. b.i.d. I presume for the DVT prophylaxis Therapy was initiated at the acute care facility and the patient transferred to us from [facility] on January 25, 2020 FALLS OR SURGERIES: The patient has had major surgeries in the 100 days prior to admission. They had no falls in the past year. They had falls with injury in the past year. PAST MEDICAL HISTORY: AAA, coronary artery disease congestive heart failure hypertension GERD obstructive sleep apnea hyperlipidemia and vertigo The patient has had chronic vertigo which most the time is positional and is stable PAST SURGICAL HISTORY hysterectomy, bilateral knee replacement, vein stripping and CABG SOCIAL HISTORY: the patient lives at home with her Allan and is a full code. The patient lives in a one-story home with her . The laundry room was on the main floor. There are 3 steps to enter at home however the patient's son is willing ramp around the stairs. The patient stated they have grab bars in the shower and near the elevated toilet. This basement in the home but the patient stated she has no reason to core the basement. The patient and her state they have a daughter that lives with them and is a QUALITY CONTROL CLERK. Ever the children that are close by and frequently stopping
--- NOTE | 2020-01-26 12:11 | PCNSR ---
On 01/26/20, the student, Marc Real, provided care and completed [facility] documentation on this patient. I have reviewed the student's documentation and agree with the findings.
[2020-01-26] MEDS: SIMVASTATIN 20 MG TABLET 40 MG PO (20:20)
[2020-01-26] MEDS: ALPRAZolam 0.5 MG TABLET PO (20:21)
[2020-01-27] VITALS (9 sets, daily range): BP systolic 123–151; BP diastolic 54–69; PULSE 75–91; RESP 16–20; TEMP 35.3–36.8; O2SAT 97–100
--- NOTE | 2020-01-27 10:44 | RPD ---
INDIVIDUALIZED PLAN OF CARE FOR Annie Denise Brief Synthesis of Pre-Admission Screen, Post-Admission Evaluation and Therapy Evaluations: The patient presents to rehab with an acute comminuted intertrochanteric left femur fracture. Comorbidities include AAA, CAD, CHF, HTN, GERD, AFSHIN, HLD, vertigo, left hip osteoarthritis, bradycardia, and age indeterminate inferior infarct. The patient?s needs will be best met in an intensive program vs. at a lower level of care. The patient requires physician services for medical oversight, management of postop complications in setting of present comorbidities, and pain management. The patient requires nursing services for DVT prophylactics, infection protection, medication management and education, pressure relief, and wound care. Deficits include:ADLs, Balance, Endurance, Family Training/Education, Mobility, Pain Management, ROM, Safety, Strength, and Transfers. Hoop Flaring Machine Operator Helper/Case Management for: Discharge Planning and Patient/Family Counseling Physical Therapy: 5 days per week for 90 minutes. Treatments may include: Therapeutic Exercise, Gait Training, Neuromuscular Re-education, Transfer Training, Community Reintegration, Bed Mobility, Patient/Family Education, Wheelchair Mobility Group Therapy/Concurrent Therapy Rationales: -Improve attention span during functional activities in a distracted environment. -Enhance problem solving and/or adequate judgment skills during functional activities in a distracted environment. -Promote increased safety awareness in a distracted environment to reduce fall risk with functional tasks, transfers, and ambulation to allow a more safe, self-sufficient return to the home environment. -Improve dynamic balance skills to promote safety and independence with functional activities in a distracted environment for maximum gain. Occupational Therapy: 5 days per week for 90 minutes. Treatments may include: Therapeutic Exercise, Therapeutic Activity, Cognitive Training, Self-Care Transfer Training, Community Reintegration, Home Management, Patient/Family Education, Wheelchair Mobility Training, Energy Conservation Training Group Therapy/Concurrent Therapy Rationales: -Allow therapist to observe and teach generalization and carry-over of skills learned in individual therapy. -Enhance problem solving and sequencing skills during therapeutic activities in a distracted environment. -Promote increased safety awareness in a realistic setting to reduce fall risk with functional tasks due to visual and verbal distractions. -Increase functional level with ADLs, ADL transfers and use of adaptive equipment through therapeutic activities with others while promoting safety to allow a more safe, self-sufficient return home. Medical Prognosis: Good Anticipated Length of Stay: 14 days Rehab Goals: Eating Goal: 06-Independent Oral Hygiene Goal: 06-Independent Toileting Hygiene Goal: 04-Supervision or Touching Assistance Shower/Bathe Self Goal: 04-Supervision or Touching Assistance Upper Body Dressing Goal: 05-Setup or Clean Up Assistance Lower Body Dressing Goal: 04-Supervision or Touching Assistance Putting On/Taking Off Footwear Goal: 05-Setup or Clean Up Assistance Rolling Left and Right Goal: 06-Independent Sit to Lying Goal: 06-Independent Lying to Sitting on Side of Bed Goal: 06-Independent Sit to Stand Goal: 06-Independent Chair/Ykn-mv-[id number] Transfer Goal: 06-Independent Toilet Transfer Goal: 04-Supervision or Touching Assistance Car Transfer Goal: 06-Independent Walk 10' Goal: 06-Independent Walk 50' with Two Turns Goal: 04-Supervision or Touching Assistance Walk 150' Goal: 04-Supervision or Touching Assistance Walk 10' on Uneven Surface Goal: 04-Supervision or Touching Assistance 1 Step (Curb) Goal: 04-Supervision or Touching Assistance 4 Steps Goal: 04-Supervision or Touching Assistance 12 Steps Goal Score: 04-Supervision or Touching Assistance Picking Up Object Goal: 04-Supervision or To
[2020-01-27] MEDS: MULTIVITAMINS THERAPEUTIC TAB (*BKC) 1 TABLET PO (10:49)
[2020-01-27] MEDS: ASPIRIN 325 MG TABLET PO ×2 (10:49→17:47)
[2020-01-27] MEDS: VITAMIN B COMPLEX CAPSULE 1 CAP PO (10:49)
[2020-01-27] MEDS: predniSONE 5 MG TABLET 15 MG PO (10:49)
[2020-01-27] MEDS: PANTOPRAZOLE SOD SESQUIHYDRATE 20 MG TAB PO (10:50)
[2020-01-27] MEDS: METOPROLOL TARTRATE 50 MG TAB PO ×2 (10:50→20:24)
[2020-01-27] MEDS: FERROUS SULFATE 324 MG TABLET PO ×2 (10:50→17:47)
[2020-01-27] MEDS: OPTI-GEN TAB 1 TABLET PO ×2 (10:50→17:47)
[2020-01-27] MEDS: CYANOCOBALAMIN 1,000 MCG TABLET 1000 MCG PO (10:52)
[2020-01-27] MEDS: MECLIZINE HCL 12.5 MG TABLET PO (10:52)
[2020-01-27] MEDS: SIMVASTATIN 20 MG TABLET 40 MG PO (20:24)
[2020-01-27] MEDS: ALPRAZolam 0.5 MG TABLET PO (20:26)
[2020-01-28] VITALS (7 sets, daily range): BP systolic 129–138; BP diastolic 56–68; PULSE 64–88; RESP 18–20; TEMP 36.5–36.8; O2SAT 96–99
[2020-01-28] MEDS: ACETAMINOPHEN 325 MG TABLET PO (02:21)
[2020-01-28] MEDS: MULTIVITAMINS THERAPEUTIC TAB (*BKC) 1 TABLET PO (08:49)
[2020-01-28] MEDS: ASPIRIN 325 MG TABLET PO ×2 (08:49→17:26)
[2020-01-28] MEDS: OPTI-GEN TAB 1 TABLET PO ×2 (08:49→17:27)
[2020-01-28] MEDS: PANTOPRAZOLE SOD SESQUIHYDRATE 20 MG TAB PO (08:49)
[2020-01-28] MEDS: METOPROLOL TARTRATE 50 MG TAB PO ×2 (08:49→20:32)
[2020-01-28] MEDS: CYANOCOBALAMIN 1,000 MCG TABLET 1000 MCG PO (08:49)
[2020-01-28] MEDS: predniSONE 5 MG TABLET 15 MG PO (08:50)
[2020-01-28] MEDS: VITAMIN B COMPLEX CAPSULE 1 CAP PO (08:50)
[2020-01-28] MEDS: FERROUS SULFATE 324 MG TABLET PO ×2 (08:50→17:27)
--- NOTE | 2020-01-28 09:59 | PCPTNOTE ---
Dana Miranda PTA completed an inpatient rehab wheelchair evaluation on Annie Denise on 01/28/2020. The patient is unable to safely and independently ambulate household distances due to their current impairments. Their diagnosis is Left Hip Fracture and their impairments include decreased strength, decreased endurance, decreased range of motion, decreased balance AND lower extremity weakness.Annie's weight bearing status is weight-bearing as tolerated on the right leg and toe touch weight bearing on left leg. The patient demonstrates significant functional mobility limitations that impair their ability to participate in mobility-related activities of daily living (MRADLs), including toileting, feeding, dressing, grooming, and bathing in the customary locations in the home. These limitations cannot be sufficiently resolved by the use of an appropriately fitted cane or walker. It is recommended that the patient utilize a wheelchair for functional mobility within the home in order to facilitate optimal safety, independence and participation in all MRADL's and adequately access their home environment on a regular basis. The patient's home provides adequate access between rooms, maneuvering space, and surfaces to accommodate the recommended wheelchair. The use of a wheelchair for functional mobility is strongly recommended and the patient is receptive to using the wheelchair. The use of this wheelchair will significantly improve the patient's ability to participate in MRADLS and the patient will use it on a regular basis in the home. This will facilitate optimal safety, independence, and participation. The patient has demonstrated sufficient physical and mental capabilities needed to safely propel a manual wheelchair that is provided in the home during a typical day. Recommended Wheelchair Frame: 22x20 patient's anatomical hip with of 20 inches and upper leg length 22 inches. Recommended Wheelchair Size: Standard Recommended Wheelchair Cushion:standard Wheelchair Leg Recommendations: elevating swing away leg rests -Elevating legrests are recommended because the patient has significant edema of the lower extremities that requires an elevating legrest. -Anti-tippers are recommended due to patient demonstrating increased risk for falls. They would benefit from anti-tippers with added safety and stabilization. -Swing Away arm rests are recommended to facilitate independence of slide board transfers at home. Dana Ruth ENVELOPE SEALING MACHINE OPERATOR 01-28-2020 Evaluating Therapist Date I agree with and certify that the above recommendation is medically necessary. Referring Physician Date I agree with and certify that the above recommendation is medically necessary. Referring Physician Date
--- NOTE | 2020-01-28 11:11 | PCPTNOTE ---
Annie Denise was evaluated for a slide board on 01/28/2020 by this physical therapist home health assistant. The slide board will resolve patient's mobility limitations and will be used for ADL's within the home. The patient can safely use the slide board. ?The slide board will resolve the patient?s mobility deficits, including impaired balance, decreased strength and decreased endurance.
--- NOTE | 2020-01-28 12:10 | WPDNEURORHBP ---
Subjective Date/time seen: 01/28/20 12:10 Interval history: this 84-year-old woman is here after having had the surgery for the left hip fracture she is doing fairly well her dizziness is under controlled nothing new to report particular denies any headache nausea vomiting chest pain shortness of breath fever chills sore throat Review of Systems Review of Systems: All systems reviewed & are unremarkable except as noted in HPI and below Functional Status Ambulation Ability Ability to Ambulate 10 Feet: Minimum Assistance X 1 Ambulation Assistive Devices: Walker, Standard Exam Const: General: comfortable and no acute distress HENMT: General nose exam: Normal nares present Mouth: Yes moist mucous membranes Eyes: General: appearance normal, both eyes and all related structures Neck: Neck: supple and no JVD Resp: Effort & Inspection: normal respiratory effort Auscultation: clear to auscultation bilaterally Cardio: Rate: regular rate Rhythm: regular rhythm GI: GI Palp: Yes Soft to palpation Auscultation: normal bowel sounds Skin: General skin exam: normal color and no rashes or lesions noted Neuro: Other: patient has remained awake alert well oriented with mild short-term memory deficit and overall neurological examination is improving with rehab with course the limitation of the weight-bearing status on the left hip Extrem: Other: the incision is clean Psych: Mental Status: mental status grossly normal Objective Data Vital Signs Vital Signs: Vital Signs - 24 hr 01/27/20 14:00 01/27/20 20:00 01/27/20 20:24 Temperature 36.6 C Pulse Rate 75 91 75 Respiratory Rate 19 18 Blood Pressure 151/69 H Pulse Oximetry 100 97 01/27/20 22:00 01/27/20 22:42 01/28/20 01:25 Temperature 36.8 C Pulse Rate 86 91 88 Respiratory Rate 20 18 18 Blood Pressure 123/62 Pulse Oximetry 97 97 96 01/28/20 02:21 01/28/20 06:00 01/28/20 08:49 Temperature 36.8 C 36.6 C Pulse Rate 64 64 Respiratory Rate 20 Blood Pressure 138/68 Pulse Oximetry 99 Intake/Output Intake/Output: Intake & Output 01/25/20 01/26/20 01/27/20 01/28/20 23:59 23:59 23:59 23:59 Intake Total 360 840 720 240 Balance 360 840 720 240 Meds/Results Medications: Active Medications Generic Name Dose Route Start Last Admin Trade Name Manuel PRN Reason Stop Dose Admin Acetaminophen 325 mg 01/25/20 16:01 01/28/20 02:21 Tylenol Tablet PO 325 mg Q4H PRN Administration Pain RATED 1-3 Alprazolam 0.5 mg 01/25/20 21:00 01/27/20 20:26 Xanax PO 0.5 mg HS KETAN Administration Artificial Tears 1 drop 01/26/20 13:02 Artificial Tears EACH EYE TID PRN Eye Irritation Aspirin 325 mg 01/26/20 08:00 01/28/20 08:49 Aspirin PO 325 mg BIDWM KETAN Administration Calcium Carbonate 500 mg 01/26/20 09:00 01/28/20 08:50 Os-Farhan 500 +D Tablet PO 500 mg DAILY KETAN Administration Cyanocobalamin 1,000 mcg 01/26/20 09:00 01/28/20 08:49 Vitamin B-12 Tab PO 02/25/20 09:01 1,000 mcg DAILY KETAN Administration Ferrous Sulfate 324 mg 01/25/20 17:00 01/28/20 08:50 Ferrous Sulfate PO 324 mg BID KETAN Administration Meclizine HCl 12.5 mg 01/25/20 18:26 01/27/20 10:52 Antivert PO 12.5 mg QID PRN Administration Dizziness Metoprolol Tartrate 50 mg 01/25/20 21:00 01/28/20 08:49 Lopressor PO 50 mg Q12HR KETAN Administration Multivitamins Therapeutic 1 tablet 01/26/20 09:00 01/28/20 08:49 Multivitamins Therapeutic(*Bkc PO 1 tablet DAILY KETAN Administration Multivitamins/Minerals 1 tablet 01/25/20 17:00 01/28/20 08:49 Ocuvite PO 02/24/20 17:01 1 tablet BID KETAN Administration Pantoprazole Sodium 20 mg 01/26/20 09:00 01/28/20 08:49 Protonix PO 20 mg QAM KETAN Administration Prednisone 15 mg 01/26/20 08:00 01/28/20 08:50 Prednisone PO 15 mg DAILY@0800 KETAN Administration Simvastatin 40 mg 01/25/20 21:00 01/27/20 20
[2020-01-28] MEDS: ALPRAZolam 0.5 MG TABLET PO (20:30)
[2020-01-28] MEDS: SIMVASTATIN 20 MG TABLET 40 MG PO (20:32)
[2020-01-29 06:00] VITALS: BP 138/42; PULSE 66; RESP 18; TEMP 36.5; O2SAT 98
[2020-01-29] MEDS: predniSONE 5 MG TABLET 15 MG PO (09:25)
[2020-01-29] MEDS: ASPIRIN 325 MG TABLET PO ×2 (09:25→17:30)
[2020-01-29] MEDS: FERROUS SULFATE 324 MG TABLET PO ×2 (09:26→17:31)
[2020-01-29] MEDS: OPTI-GEN TAB 1 TABLET PO ×2 (09:26→17:31)
[2020-01-29] MEDS: MULTIVITAMINS THERAPEUTIC TAB (*BKC) 1 TABLET PO (09:26)
[2020-01-29] MEDS: VITAMIN B COMPLEX CAPSULE 1 CAP PO (09:26)
[2020-01-29] MEDS: CYANOCOBALAMIN 1,000 MCG TABLET 1000 MCG PO (09:26)
[2020-01-29] MEDS: PANTOPRAZOLE SOD SESQUIHYDRATE 20 MG TAB PO (09:26)
[2020-01-29 09:27] VITALS: PULSE 66
[2020-01-29] MEDS: METOPROLOL TARTRATE 50 MG TAB PO ×2 (09:27→20:21)
[2020-01-29 14:00] VITALS: BP 136/58; PULSE 82; RESP 20; TEMP 36.9; O2SAT 98
--- NOTE | 2020-01-29 16:38 | WPDNEURORHBP ---
Subjective Date/time seen: 01/29/20 16:38 Interval history: this 84-year-old is here because of surgery left hip fracture she is quite stable doing fairly well denies any headache nausea vomiting chest pain shortness of breath fever chills sore throat Review of Systems Review of Systems: All systems reviewed & are unremarkable except as noted in HPI and below Functional Status Ambulation Ability Ability to Ambulate 10 Feet: Minimum Assistance X 1 Ambulation Assistive Devices: Walker, Standard Exam Const: General: comfortable, no acute distress and uncomfortable HENMT: General nose exam: Normal nares present Mouth: Yes moist mucous membranes Eyes: General: appearance normal, both eyes and all related structures Neck: Neck: supple and no JVD Resp: Effort & Inspection: normal respiratory effort Auscultation: clear to auscultation bilaterally Cardio: Rate: regular rate Rhythm: regular rhythm GI: GI Palp: Yes Soft to palpation Auscultation: normal bowel sounds Skin: General skin exam: normal color and no rashes or lesions noted Neuro: Other: patient remains awake alert well oriented with mild memory deficit doing fairly well still needing some assistance in the activities of daily living Extrem: General: normal to inspection Other: the incision from the surgery is clean Psych: Mental Status: mental status grossly normal Objective Data Vital Signs Vital Signs: Vital Signs - 24 hr 01/29/20 20:21 01/29/20 21:09 01/29/20 22:00 Temperature 36.9 C Pulse Rate 80 84 77 Respiratory Rate 18 18 Blood Pressure 141/61 H Pulse Oximetry 97 97 01/30/20 06:00 01/30/20 08:53 01/30/20 14:00 Temperature 36.4 C L 36.8 C Pulse Rate 60 60 64 Respiratory Rate 19 20 Blood Pressure 120/58 L 126/46 L Pulse Oximetry 98 100 Intake/Output Intake/Output: Intake & Output 01/27/20 01/28/20 01/29/20 01/30/20 23:59 23:59 23:59 23:59 Intake Total 720 720 720 480 Balance 720 720 720 480 Meds/Results Medications: Active Medications Generic Name Dose Route Start Last Admin Trade Name Freq PRN Reason Stop Dose Admin Acetaminophen 325 mg 01/25/20 16:01 01/30/20 00:10 Tylenol Tablet PO 325 mg Q4H PRN Administration Pain RATED 1-3 Alprazolam 0.5 mg 01/25/20 21:00 01/29/20 20:21 Xanax PO 0.5 mg HS KETAN Administration Artificial Tears 1 drop 01/26/20 13:02 Artificial Tears EACH EYE TID PRN Eye Irritation Aspirin 325 mg 01/26/20 08:00 01/30/20 08:52 Aspirin PO 325 mg BIDWM KETAN Administration Calcium Carbonate 500 mg 01/26/20 09:00 01/30/20 08:52 Os-Farhan 500 +D Tablet PO 500 mg DAILY KETAN Administration Cyanocobalamin 1,000 mcg 01/26/20 09:00 01/30/20 08:52 Vitamin B-12 Tab PO 02/25/20 09:01 1,000 mcg DAILY KETAN Administration Ferrous Sulfate 324 mg 01/25/20 17:00 01/30/20 08:53 Ferrous Sulfate PO 324 mg BID KETAN Administration Meclizine HCl 12.5 mg 01/25/20 18:26 01/27/20 10:52 Antivert PO 12.5 mg QID PRN Administration Dizziness Melatonin 3 mg 01/30/20 21:00 Melatonin PO HS KETAN Metoprolol Tartrate 50 mg 01/25/20 21:00 01/30/20 08:53 Lopressor PO 50 mg Q12HR KETAN Administration Multivitamins Therapeutic 1 tablet 01/26/20 09:00 01/30/20 08:53 Multivitamins Therapeutic(*Bkc PO 1 tablet DAILY KETAN Administration Multivitamins/Minerals 1 tablet 01/25/20 17:00 01/30/20 08:53 Ocuvite PO 02/24/20 17:01 1 tablet BID KETAN Administration Pantoprazole Sodium 20 mg 01/26/20 09:00 01/30/20 08:53 Protonix PO 20 mg QAM KETAN Administration Prednisone 15 mg 01/26/20 08:00 01/30/20 08:52 Prednisone PO 15 mg DAILY@0800 KETAN Administration Simvastatin 40 mg 01/25/20 21:00 01/29/20 20:21 Zocor PO 40 mg HS KETAN Administration Vitamin B Complex 1 cap 01/26/20 09:00 01/30/20 08:53 Vitamin B Complex PO 1 cap DAILY KETAN Administration
[2020-01-29 20:21] VITALS: PULSE 80
[2020-01-29] MEDS: ALPRAZolam 0.5 MG TABLET PO (20:21)
[2020-01-29] MEDS: SIMVASTATIN 20 MG TABLET 40 MG PO (20:21)
[2020-01-29 21:09] VITALS: PULSE 84; RESP 18; O2SAT 97
[2020-01-29 22:00] VITALS: BP 141/61; PULSE 77; RESP 18; TEMP 36.9; O2SAT 97
[2020-01-30] MEDS: ACETAMINOPHEN 325 MG TABLET PO (00:10)
[2020-01-30] MEDS: MELATONIN 3 MG TABLET PO ×2 (01:57→19:54)
[2020-01-30 06:00] VITALS: BP 120/58; PULSE 60; RESP 19; TEMP 36.4; O2SAT 98
[2020-01-30] MEDS: ASPIRIN 325 MG TABLET PO ×2 (08:52→17:21)
[2020-01-30] MEDS: CYANOCOBALAMIN 1,000 MCG TABLET 1000 MCG PO (08:52)
[2020-01-30] MEDS: predniSONE 5 MG TABLET 15 MG PO (08:52)
[2020-01-30 08:53] VITALS: PULSE 60
[2020-01-30] MEDS: MULTIVITAMINS THERAPEUTIC TAB (*BKC) 1 TABLET PO (08:53)
[2020-01-30] MEDS: PANTOPRAZOLE SOD SESQUIHYDRATE 20 MG TAB PO (08:53)
[2020-01-30] MEDS: VITAMIN B COMPLEX CAPSULE 1 CAP PO (08:53)
[2020-01-30] MEDS: FERROUS SULFATE 324 MG TABLET PO ×2 (08:53→17:21)
[2020-01-30] MEDS: OPTI-GEN TAB 1 TABLET PO ×2 (08:53→17:21)
[2020-01-30] MEDS: METOPROLOL TARTRATE 50 MG TAB PO ×2 (08:53→19:54)
[2020-01-30 14:00] VITALS: BP 126/46; PULSE 64; RESP 20; TEMP 36.8; O2SAT 100
--- NOTE | 2020-01-30 18:30 | WPDNEURORHBP ---
Subjective Date/time seen: 01/30/20 18:30 Interval history: this 84-year-old is here after having surgery for the left hip fracture she is doing quite well making progress denies any headache nausea vomiting chest pain shortness of breath fever chills sore Review of Systems Review of Systems: All systems reviewed & are unremarkable except as noted in HPI and below Functional Status Ambulation Ability Ability to Ambulate 10 Feet: Minimum Assistance X 1 Ambulation Assistive Devices: Walker, Standard Exam Const: General: comfortable and no acute distress HENMT: General nose exam: Normal nares present Mouth: Yes moist mucous membranes Eyes: General: appearance normal, both eyes and all related structures Neck: Neck: supple and no JVD Resp: Effort & Inspection: normal respiratory effort Auscultation: clear to auscultation bilaterally Cardio: Rate: regular rate Rhythm: regular rhythm GI: GI Palp: Yes Soft to palpation Auscultation: normal bowel sounds Skin: General skin exam: normal color and no rashes or lesions noted Neuro: Other: the patient is awake alert well oriented and making excellent progress Extrem: General: normal to inspection Psych: Mental Status: mental status grossly normal Objective Data Vital Signs Vital Signs: Vital Signs - 24 hr 01/29/20 20:21 01/29/20 21:09 01/29/20 22:00 Temperature 36.9 C Pulse Rate 80 84 77 Respiratory Rate 18 18 Blood Pressure 141/61 H Pulse Oximetry 97 97 01/30/20 06:00 01/30/20 08:53 01/30/20 14:00 Temperature 36.4 C L 36.8 C Pulse Rate 60 60 64 Respiratory Rate 19 20 Blood Pressure 120/58 L 126/46 L Pulse Oximetry 98 100 Intake/Output Intake/Output: Intake & Output 01/27/20 01/28/20 01/29/20 01/30/20 23:59 23:59 23:59 23:59 Intake Total 720 720 720 720 Balance 720 720 720 720 Meds/Results Medications: Active Medications Generic Name Dose Route Start Last Admin Trade Name Freq PRN Reason Stop Dose Admin Acetaminophen 325 mg 01/25/20 16:01 01/30/20 00:10 Tylenol Tablet PO 325 mg Q4H PRN Administration Pain RATED 1-3 Alprazolam 0.5 mg 01/25/20 21:00 01/29/20 20:21 Xanax PO 0.5 mg HS KETAN Administration Artificial Tears 1 drop 01/26/20 13:02 Artificial Tears EACH EYE TID PRN Eye Irritation Aspirin 325 mg 01/26/20 08:00 01/30/20 17:21 Aspirin PO 325 mg BIDWM KETAN Administration Calcium Carbonate 500 mg 01/26/20 09:00 01/30/20 08:52 Os-Farhan 500 +D Tablet PO 500 mg DAILY KETAN Administration Cyanocobalamin 1,000 mcg 01/26/20 09:00 01/30/20 08:52 Vitamin B-12 Tab PO 02/25/20 09:01 1,000 mcg DAILY KETAN Administration Ferrous Sulfate 324 mg 01/25/20 17:00 01/30/20 17:21 Ferrous Sulfate PO 324 mg BID KETAN Administration Meclizine HCl 12.5 mg 01/25/20 18:26 01/27/20 10:52 Antivert PO 12.5 mg QID PRN Administration Dizziness Melatonin 3 mg 01/30/20 21:00 Melatonin PO HS KETAN Metoprolol Tartrate 50 mg 01/25/20 21:00 01/30/20 08:53 Lopressor PO 50 mg Q12HR KETAN Administration Multivitamins Therapeutic 1 tablet 01/26/20 09:00 01/30/20 08:53 Multivitamins Therapeutic(*Bkc PO 1 tablet DAILY KETAN Administration Multivitamins/Minerals 1 tablet 01/25/20 17:00 01/30/20 17:21 Ocuvite PO 02/24/20 17:01 1 tablet BID KETAN Administration Pantoprazole Sodium 20 mg 01/26/20 09:00 01/30/20 08:53 Protonix PO 20 mg QAM KETAN Administration Prednisone 15 mg 01/26/20 08:00 01/30/20 08:52 Prednisone PO 15 mg DAILY@0800 KETAN Administration Simvastatin 40 mg 01/25/20 21:00 01/29/20 20:21 Zocor PO 40 mg HS KETAN Administration Vitamin B Complex 1 cap 01/26/20 09:00 01/30/20 08:53 Vitamin B Complex PO 1 cap DAILY KETAN Administration Progress Note: A&P Assessment and Plan (1) Closed intertrochanteric fracture of left hip: Qualifiers: Encounte
[2020-01-30] MEDS: ALPRAZolam 0.5 MG TABLET PO (19:53)
[2020-01-30 19:54] VITALS: PULSE 62
[2020-01-30] MEDS: SIMVASTATIN 20 MG TABLET 40 MG PO (19:58)
[2020-01-30 21:08] VITALS: PULSE 83; O2SAT 96
[2020-01-30 21:21] VITALS: BP 113/69; PULSE 92; RESP 18; TEMP 36.9; O2SAT 95
[2020-01-30] MEDS: ACETAMINOPHEN 500 MG TABLET 1000 MG PO (23:01)
[2020-01-31] VITALS (7 sets, daily range): BP systolic 132–147; BP diastolic 54–72; PULSE 61–80; RESP 17–18; TEMP 36.3–36.8; O2SAT 97–100
[2020-01-31] MEDS: predniSONE 5 MG TABLET 15 MG PO (08:46)
[2020-01-31] MEDS: ASPIRIN 325 MG TABLET PO ×2 (08:46→17:20)
[2020-01-31] MEDS: FERROUS SULFATE 324 MG TABLET PO ×2 (08:46→17:20)
[2020-01-31] MEDS: OPTI-GEN TAB 1 TABLET PO ×2 (08:46→17:20)
[2020-01-31] MEDS: CYANOCOBALAMIN 1,000 MCG TABLET 1000 MCG PO (08:46)
[2020-01-31] MEDS: MULTIVITAMINS THERAPEUTIC TAB (*BKC) 1 TABLET PO (08:47)
[2020-01-31] MEDS: VITAMIN B COMPLEX CAPSULE 1 CAP PO (08:47)
[2020-01-31] MEDS: METOPROLOL TARTRATE 50 MG TAB PO ×2 (08:47→21:07)
[2020-01-31] MEDS: PANTOPRAZOLE SOD SESQUIHYDRATE 20 MG TAB PO (08:47)
--- NOTE | 2020-01-31 13:08 | PCDIET ---
Nutrition Follow-Up Complete: Nutrition Diagnosis: Increased protein needs related to healing as evidenced by left hip fracture. Nutrition Goal: Patient to consume 75% or more of meals. Goal met. Patient consuming 75-100% of most meals on heart healthy diet. Patient reports good appetite and denies c/o or concerns. Recommend continuing heart healthy diet. Last recorded weight is 95.2 kg. Recommend obtaining new weight. Bowel Motility: +BM this date. Labs Reviewed: No new labs available. Meds Noted: Oscal 500 + D, Vitamin B12, Ferrous Sulfate, Antivert, MVI, Ocuvite, Protonix, Vitamin B Complex, Prednisone Additional Notes: If medically appropriate, would also consider stopping Ocuvite. Will continue to monitor with same goal. Nutrition Monitoring and Evaluation: Follow up in 7 days.
[2020-01-31] MEDS: ALPRAZolam 0.5 MG TABLET PO (21:07)
[2020-01-31] MEDS: MELATONIN 3 MG TABLET PO (21:07)
[2020-01-31] MEDS: SIMVASTATIN 20 MG TABLET 40 MG PO (21:07)
[2020-01-31] MEDS: ACETAMINOPHEN 500 MG TABLET 1000 MG PO (22:44)
[2020-02-01] VITALS (8 sets, daily range): BP systolic 132–145; BP diastolic 55–60; PULSE 64–77; RESP 18–20; TEMP 36.6–36.8; O2SAT 96–100
[2020-02-01] MEDS: OPTI-GEN TAB 1 TABLET PO ×2 (08:10→17:46)
[2020-02-01] MEDS: FERROUS SULFATE 324 MG TABLET PO ×2 (08:10→17:46)
[2020-02-01] MEDS: PANTOPRAZOLE SOD SESQUIHYDRATE 20 MG TAB PO (08:10)
[2020-02-01] MEDS: VITAMIN B COMPLEX CAPSULE 1 CAP PO (08:10)
[2020-02-01] MEDS: METOPROLOL TARTRATE 50 MG TAB PO ×2 (08:10→21:12)
[2020-02-01] MEDS: ASPIRIN 325 MG TABLET PO ×2 (08:10→17:46)
[2020-02-01] MEDS: predniSONE 5 MG TABLET 15 MG PO (08:10)
[2020-02-01] MEDS: MULTIVITAMINS THERAPEUTIC TAB (*BKC) 1 TABLET PO (08:10)
[2020-02-01] MEDS: CYANOCOBALAMIN 1,000 MCG TABLET 1000 MCG PO (08:10)
--- NOTE | 2020-02-01 09:54 | PCPTNOTE ---
Annie Denise was evaluated for a standard walker on 02/01/2020 by this physical therapist assistant winemaker. The standard walker will resolve patient's mobility limitations and will be used for ADL's within the home. The patient can safely use the standard walker. ?The standard walker will resolve the patient?s mobility deficits, including limited weight bearing through left lower extremity, impaired balance and decreased endurance.
--- NOTE | 2020-02-01 13:34 | WPDNEURORHBP ---
Subjective Date/time seen: 02/01/20 13:34 Interval history: this 84-year-old is here after having had surgery for the left hip fracture with some mild cognitive deficit she is doing fairly well denies any headache nausea vomiting chest pain shortness of breath fever chills or sore throat and making progress Review of Systems Review of Systems: All systems reviewed & are unremarkable except as noted in HPI and below Functional Status Ambulation Ability Ability to Ambulate 10 Feet: Minimum Assistance X 1 Ambulation Assistive Devices: Walker, Standard Exam Const: General: comfortable and no acute distress HENMT: General nose exam: Normal nares present Mouth: Yes moist mucous membranes Eyes: General: appearance normal, both eyes and all related structures Neck: Neck: supple and no JVD Resp: Effort & Inspection: normal respiratory effort Auscultation: clear to auscultation bilaterally Cardio: Rate: regular rate Rhythm: regular rhythm GI: GI Palp: Yes Soft to palpation Auscultation: normal bowel sounds Skin: General skin exam: normal color and no rashes or lesions noted Neuro: Other: patient is awake alert well oriented to time place and person doing fairly well in rehab denies headache double vision blurred vision nausea vomiting chest pain shortness of breath fever chills sore throat Extrem: General: normal to inspection Other: incision is clean and healthy Psych: Mental Status: mental status grossly normal Other: mild short-term memory deficit Objective Data Vital Signs Vital Signs: Vital Signs - 24 hr 01/31/20 14:00 01/31/20 20:00 01/31/20 21:07 Temperature 36.8 C Pulse Rate 72 70 70 Respiratory Rate 18 17 Blood Pressure 147/72 H Pulse Oximetry 99 98 01/31/20 22:00 01/31/20 22:09 02/01/20 03:09 Temperature 36.3 C L Pulse Rate 70 80 77 Respiratory Rate 17 Blood Pressure 132/54 L Pulse Oximetry 98 97 96 02/01/20 06:00 02/01/20 08:10 Temperature 36.8 C Pulse Rate 65 65 Respiratory Rate 18 Blood Pressure 132/55 L Pulse Oximetry 100 Intake/Output Intake/Output: Intake & Output 01/29/20 01/30/20 01/31/20 02/01/20 23:59 23:59 23:59 23:59 Intake Total 720 720 720 480 Balance 720 720 720 480 Meds/Results Medications: Active Medications Generic Name Dose Route Start Last Admin Trade Name Manuel PRN Reason Stop Dose Admin Acetaminophen 1,000 mg 01/30/20 19:07 01/31/20 22:44 Tylenol Tablet PO 1,000 mg Q6H PRN Administration Mild Pain (1-3) or Fever Alprazolam 0.5 mg 01/25/20 21:00 01/31/20 21:07 Xanax PO 0.5 mg HS KETAN Administration Artificial Tears 1 drop 01/26/20 13:02 Artificial Tears EACH EYE TID PRN Eye Irritation Aspirin 325 mg 01/26/20 08:00 02/01/20 08:10 Aspirin PO 325 mg BIDWM KETAN Administration Calcium Carbonate 500 mg 01/26/20 09:00 02/01/20 08:10 Os-Farhan 500 +D Tablet PO 500 mg DAILY KETAN Administration Cyanocobalamin 1,000 mcg 01/26/20 09:00 02/01/20 08:10 Vitamin B-12 Tab PO 02/25/20 09:01 1,000 mcg DAILY KETAN Administration Ferrous Sulfate 324 mg 01/25/20 17:00 02/01/20 08:10 Ferrous Sulfate PO 324 mg BID KETAN Administration Meclizine HCl 12.5 mg 01/25/20 18:26 01/27/20 10:52 Antivert PO 12.5 mg QID PRN Administration Dizziness Melatonin 3 mg 01/30/20 21:00 01/31/20 21:07 Melatonin PO 3 mg HS KETAN Administration Metoprolol Tartrate 50 mg 01/25/20 21:00 02/01/20 08:10 Lopressor PO 50 mg Q12HR KETAN Administration Multivitamins Therapeutic 1 tablet 01/26/20 09:00 02/01/20 08:10 Multivitamins Therapeutic(*Bkc PO 1 tablet DAILY EKTAN Administration Multivitamins/Minerals 1 tablet 01/25/20 17:00 02/01/20 08:10 Ocuvite PO 02/24/20 17:01 1 tablet BID KETAN Administration Pantoprazole Sodium 20 mg 01/26/20 09:00 02/01/20 08:10 Protonix PO 20 mg QAM KETAN Administration Prednisone 15 mg
[2020-02-01] MEDS: ALPRAZolam 0.5 MG TABLET PO (21:12)
[2020-02-01] MEDS: MELATONIN 3 MG TABLET PO (21:12)
[2020-02-01] MEDS: SIMVASTATIN 20 MG TABLET 40 MG PO (21:13)
[2020-02-02] VITALS (8 sets, daily range): BP systolic 117–137; BP diastolic 50–84; PULSE 62–98; RESP 18–19; TEMP 36.3–36.6; O2SAT 96–99
[2020-02-02 04:58] LABS: Basophils Percent Auto 0.1 % (0.2-1.2); Eosinophils Absolute Auto 0.1 K/mm3 (0-0.3); Eosinophils Percent Auto 1.4 % (0-4.4); Hematocrit 30.4 % (37.0-47.0); Hemoglobin 9.4 g/dL (12.0-15.0); Immature Granulocyte Absolute 0.06 K/mm3 (0.00-0.031); Immature Granulocyte Percent A 0.8 % (0-0.5); Lymphocytes Absolute Auto 1.28 K/mm3 (0.9-3.2); Lymphocytes Percent Auto 17.5 % (18.3-44.2); Mean Corpuscular HGB Conc 30.9 g/dl (32-36); Mean Corpuscular Volume 97.1 fl (80-100); Mean Platelet Volume 9.2 fl (7.4-10.4); Monocytes Absolute Auto 0.5 K/mm3 (0.1-0.6); Monocytes Percent Auto 6.3 % (2.6-8.5); Neutrophils Absolute Auto 5.4 K/mm3 (1.3-6.7); Neutrophils Percent Auto 73.9 % (45.5-73.1); Platelet Count Result 233 k/mm3 (150-375); Red Blood Count 3.13 M/mm3 (4.2-5.4); Red Cell Distribution Width 16.2 % (11.5-14.5); White Blood Count 7.3 K/mm3 (4.5-10.0)
[2020-02-02 05:12] LABS: Blood Urea Nitrogen 15 mg/dL (7-17); Calcium 9.1 mg/dL (8.4-10.2); Carbon Dioxide 31 mmol/L (22-30); Chloride 101 mmol/L (98-107); Estimated CRCL calculation 65 ml/min; Estimated Glomerular Filt Rate > 60; Glucose 107 mg/dL (65-105); Sodium 137 mmol/L (137-145)
[2020-02-02] MEDS: OPTI-GEN TAB 1 TABLET PO ×2 (09:05→16:45)
[2020-02-02] MEDS: FERROUS SULFATE 324 MG TABLET PO ×2 (09:05→16:45)
[2020-02-02] MEDS: VITAMIN B COMPLEX CAPSULE 1 CAP PO (09:05)
[2020-02-02] MEDS: CYANOCOBALAMIN 1,000 MCG TABLET 1000 MCG PO (09:05)
[2020-02-02] MEDS: MULTIVITAMINS THERAPEUTIC TAB (*BKC) 1 TABLET PO (09:05)
[2020-02-02] MEDS: predniSONE 5 MG TABLET 15 MG PO (09:05)
[2020-02-02] MEDS: METOPROLOL TARTRATE 50 MG TAB PO ×2 (09:05→20:37)
[2020-02-02] MEDS: PANTOPRAZOLE SOD SESQUIHYDRATE 20 MG TAB PO (09:05)
[2020-02-02] MEDS: ASPIRIN 325 MG TABLET PO ×2 (09:06→16:45)
--- NOTE | 2020-02-02 15:29 | WPDNEURORHBP ---
Subjective Date/time seen: 02/02/20 15:29 Interval history: this pleasant 84-year-old is here after having had surgery for the left hip fracture doing fairly well engage in therapy no specific complaints are noted Review of Systems Review of Systems: All systems reviewed & are unremarkable except as noted in HPI and below Functional Status Ambulation Ability Ability to Ambulate 10 Feet: Contact Guard Ambulation Assistive Devices: Walker, Standard Exam Const: General: comfortable and no acute distress HENMT: General nose exam: Normal nares present Mouth: Yes moist mucous membranes Eyes: General: appearance normal, both eyes and all related structures Neck: Neck: supple and no JVD Resp: Effort & Inspection: normal respiratory effort Auscultation: clear to auscultation bilaterally Cardio: Rate: regular rate Rhythm: regular rhythm GI: GI Palp: Yes Soft to palpation Auscultation: normal bowel sounds Skin: General skin exam: normal color and no rashes or lesions noted Neuro: Other: patient is awake and alert well oriented without any lateralizing focal motor deficit except for the fact that she has weakness related to left hip fracture Extrem: General: normal to inspection Psych: Mental Status: mental status grossly normal Objective Data Vital Signs Vital Signs: Vital Signs - 24 hr 02/01/20 20:00 02/01/20 21:12 02/01/20 21:40 Temperature Pulse Rate 75 64 71 Respiratory Rate 19 Blood Pressure Pulse Oximetry 100 97 02/01/20 22:00 02/02/20 02:30 02/02/20 06:00 Temperature 36.7 C 36.3 C L Pulse Rate 75 98 62 Respiratory Rate 19 19 Blood Pressure 145/59 H 137/66 Pulse Oximetry 100 97 98 02/02/20 08:00 02/02/20 09:05 02/02/20 14:00 Temperature 36.5 C Pulse Rate 64 64 70 Respiratory Rate 18 18 Blood Pressure 117/50 L Pulse Oximetry 98 97 Intake/Output Intake/Output: Intake & Output 01/30/20 01/31/20 02/01/20 02/02/20 23:59 23:59 23:59 23:59 Intake Total 720 720 720 480 Balance 720 720 720 480 Meds/Results Medications: Active Medications Generic Name Dose Route Start Last Admin Trade Name Freq PRN Reason Stop Dose Admin Acetaminophen 1,000 mg 01/30/20 19:07 01/31/20 22:44 Tylenol Tablet PO 1,000 mg Q6H PRN Administration Mild Pain (1-3) or Fever Alprazolam 0.5 mg 01/25/20 21:00 02/01/20 21:12 Xanax PO 0.5 mg HS KETAN Administration Artificial Tears 1 drop 01/26/20 13:02 Artificial Tears EACH EYE TID PRN Eye Irritation Aspirin 325 mg 01/26/20 08:00 02/02/20 09:06 Aspirin PO 325 mg BIDWM KETAN Administration Calcium Carbonate 500 mg 01/26/20 09:00 02/02/20 09:05 Os-Farhan 500 +D Tablet PO 500 mg DAILY KETAN Administration Cyanocobalamin 1,000 mcg 01/26/20 09:00 02/02/20 09:05 Vitamin B-12 Tab PO 02/25/20 09:01 1,000 mcg DAILY KETAN Administration Ferrous Sulfate 324 mg 01/25/20 17:00 02/02/20 09:05 Ferrous Sulfate PO 324 mg BID KETAN Administration Meclizine HCl 12.5 mg 01/25/20 18:26 01/27/20 10:52 Antivert PO 12.5 mg QID PRN Administration Dizziness Melatonin 3 mg 01/30/20 21:00 02/01/20 21:12 Melatonin PO 3 mg HS KETAN Administration Metoprolol Tartrate 50 mg 01/25/20 21:00 02/02/20 09:05 Lopressor PO 50 mg Q12HR KETAN Administration Multivitamins Therapeutic 1 tablet 01/26/20 09:00 02/02/20 09:05 Multivitamins Therapeutic(*Bkc PO 1 tablet DAILY KETAN Administration Multivitamins/Minerals 1 tablet 01/25/20 17:00 02/02/20 09:05 Ocuvite PO 02/24/20 17:01 1 tablet BID KETAN Administration Pantoprazole Sodium 20 mg 01/26/20 09:00 02/02/20 09:05 Protonix PO 20 mg QAM KETAN Administration Prednisone 15 mg 01/26/20 08:00 02/02/20 09:05 Prednisone PO 15 mg DAILY@0800 KETAN Administration Simvastatin 40 mg 01/25/20 21:00 02/01/20 21:13 Zocor PO 40 mg HS KETAN Administration Vitamin B Complex
[2020-02-02] MEDS: SIMVASTATIN 20 MG TABLET 40 MG PO (20:35)
[2020-02-02] MEDS: MELATONIN 3 MG TABLET PO (20:36)
[2020-02-02] MEDS: ALPRAZolam 0.5 MG TABLET PO (20:36)
[2020-02-03 06:00] VITALS: BP 140/54; PULSE 59; RESP 19; TEMP 36.3; O2SAT 100
[2020-02-03 08:30] VITALS: PULSE 59
[2020-02-03] MEDS: METOPROLOL TARTRATE 50 MG TAB PO ×2 (08:30→20:43)
[2020-02-03] MEDS: ASPIRIN 325 MG TABLET PO ×2 (08:30→17:24)
[2020-02-03] MEDS: FERROUS SULFATE 324 MG TABLET PO ×2 (08:30→17:24)
[2020-02-03] MEDS: CYANOCOBALAMIN 1,000 MCG TABLET 1000 MCG PO (08:30)
[2020-02-03] MEDS: predniSONE 5 MG TABLET 15 MG PO (08:30)
[2020-02-03] MEDS: OPTI-GEN TAB 1 TABLET PO ×2 (08:30→17:24)
[2020-02-03] MEDS: VITAMIN B COMPLEX CAPSULE 1 CAP PO (08:31)
[2020-02-03] MEDS: PANTOPRAZOLE SOD SESQUIHYDRATE 20 MG TAB PO (08:31)
[2020-02-03] MEDS: MULTIVITAMINS THERAPEUTIC TAB (*BKC) 1 TABLET PO (08:31)
[2020-02-03 14:00] VITALS: BP 132/63; PULSE 76; RESP 20; TEMP 36.6; O2SAT 98
[2020-02-03] MEDS: ALPRAZolam 0.5 MG TABLET PO (20:41)
[2020-02-03] MEDS: SIMVASTATIN 20 MG TABLET 40 MG PO (20:42)
[2020-02-03] MEDS: MELATONIN 3 MG TABLET PO (20:42)
[2020-02-03 20:43] VITALS: PULSE 70
[2020-02-03 22:00] VITALS: BP 160/70; PULSE 70; RESP 18; TEMP 36.7; O2SAT 99
[2020-02-03 22:03] VITALS: PULSE 72; O2SAT 99
[2020-02-04] VITALS (7 sets, daily range): BP systolic 124–135; BP diastolic 51–63; PULSE 57–70; RESP 18–20; TEMP 36.2–36.9; O2SAT 98–100
[2020-02-04] MEDS: ASPIRIN 325 MG TABLET PO ×2 (10:10→17:38)
[2020-02-04] MEDS: FERROUS SULFATE 324 MG TABLET PO ×2 (10:10→17:38)
[2020-02-04] MEDS: predniSONE 5 MG TABLET 15 MG PO (10:10)
[2020-02-04] MEDS: METOPROLOL TARTRATE 50 MG TAB PO ×2 (10:10→20:32)
[2020-02-04] MEDS: CYANOCOBALAMIN 1,000 MCG TABLET 1000 MCG PO (10:10)
[2020-02-04] MEDS: MULTIVITAMINS THERAPEUTIC TAB (*BKC) 1 TABLET PO (10:11)
[2020-02-04] MEDS: PANTOPRAZOLE SOD SESQUIHYDRATE 20 MG TAB PO (10:11)
[2020-02-04] MEDS: VITAMIN B COMPLEX CAPSULE 1 CAP PO (10:11)
[2020-02-04] MEDS: OPTI-GEN TAB 1 TABLET PO ×2 (10:11→17:38)
--- NOTE | 2020-02-04 13:59 | PCCCNOTE ---
On 02/04/20, the student, [Levy Farmer ], provided care and completed [facility] documentation on this patient. I have reviewed the student's documentation and agree with the findings.
--- NOTE | 2020-02-04 14:36 | WPDNEURORHBP ---
Subjective Date/time seen: 02/04/20 14:36 Interval history: this pleasant 84 years old is here after surgery for the left hip fracture she is doing excellent in over rehab making progress denies any headache nausea vomiting chest pain shortness of breath fever chills sore throat Review of Systems Review of Systems: All systems reviewed & are unremarkable except as noted in HPI and below Functional Status Ambulation Ability Ability to Ambulate 10 Feet: Contact Guard Ambulation Assistive Devices: Walker, Standard Exam Const: General: comfortable and no acute distress HENMT: General nose exam: Normal nares present Mouth: Yes moist mucous membranes Eyes: General: appearance normal, both eyes and all related structures Neck: Neck: supple and no JVD Resp: Effort & Inspection: normal respiratory effort Auscultation: clear to auscultation bilaterally Cardio: Rate: regular rate Rhythm: regular rhythm GI: GI Palp: Yes Soft to palpation Auscultation: normal bowel sounds Skin: General skin exam: normal color and no rashes or lesions noted Neuro: Other: patient is awake alert and well oriented time place and person which short-term memory deficit improving in the rehab Extrem: General: normal to inspection Other: the incision is clean and healthy Psych: Mental Status: mental status grossly normal Objective Data Vital Signs Vital Signs: Vital Signs - 24 hr 02/03/20 20:43 02/03/20 22:00 02/04/20 06:00 Temperature 36.7 C 36.4 C Pulse Rate 70 70 57 L Respiratory Rate 18 18 Blood Pressure 160/70 H 124/51 L Pulse Oximetry 99 98 02/04/20 10:10 Temperature Pulse Rate 57 L Respiratory Rate Blood Pressure Pulse Oximetry Intake/Output Intake/Output: Intake & Output 02/01/20 02/02/20 02/03/20 02/04/20 23:59 23:59 23:59 23:59 Intake Total 720 720 840 240 Balance 720 720 840 240 Meds/Results Medications: Active Medications Generic Name Dose Route Start Last Admin Trade Name Freq PRN Reason Stop Dose Admin Acetaminophen 1,000 mg 01/30/20 19:07 01/31/20 22:44 Tylenol Tablet PO 1,000 mg Q6H PRN Administration Mild Pain (1-3) or Fever Alprazolam 0.5 mg 01/25/20 21:00 02/03/20 20:41 Xanax PO 0.5 mg HS KETAN Administration Artificial Tears 1 drop 01/26/20 13:02 Artificial Tears EACH EYE TID PRN Eye Irritation Aspirin 325 mg 01/26/20 08:00 02/04/20 10:10 Aspirin PO 325 mg BIDWM KETAN Administration Calcium Carbonate 500 mg 01/26/20 09:00 02/04/20 10:10 Os-Farhan 500 +D Tablet PO 500 mg DAILY KETAN Administration Cyanocobalamin 1,000 mcg 01/26/20 09:00 02/04/20 10:10 Vitamin B-12 Tab PO 02/25/20 09:01 1,000 mcg DAILY KETAN Administration Ferrous Sulfate 324 mg 01/25/20 17:00 02/04/20 10:10 Ferrous Sulfate PO 324 mg BID KETAN Administration Meclizine HCl 12.5 mg 01/25/20 18:26 01/27/20 10:52 Antivert PO 12.5 mg QID PRN Administration Dizziness Melatonin 3 mg 01/30/20 21:00 02/03/20 20:42 Melatonin PO 3 mg HS KETAN Administration Metoprolol Tartrate 50 mg 01/25/20 21:00 02/04/20 10:10 Lopressor PO 50 mg Q12HR KETAN Administration Multivitamins Therapeutic 1 tablet 01/26/20 09:00 02/04/20 10:11 Multivitamins Therapeutic(*Bkc PO 1 tablet DAILY KETAN Administration Multivitamins/Minerals 1 tablet 01/25/20 17:00 02/04/20 10:11 Ocuvite PO 02/24/20 17:01 1 tablet BID KETAN Administration Pantoprazole Sodium 20 mg 01/26/20 09:00 02/04/20 10:11 Protonix PO 20 mg QAM KETAN Administration Prednisone 15 mg 01/26/20 08:00 02/04/20 10:10 Prednisone PO 15 mg DAILY@0800 KETAN Administration Simvastatin 40 mg 01/25/20 21:00 02/03/20 20:42 Zocor PO 40 mg HS KETAN Administration Vitamin B Complex 1 cap 01/26/20 09:00 02/04/20 10:11 Vitamin B Complex PO 1 cap DAILY KETAN Administration Progress Note: A&P Assessment and Plan (1
[2020-02-04] MEDS: ALPRAZolam 0.5 MG TABLET PO (20:32)
[2020-02-04] MEDS: MELATONIN 3 MG TABLET PO (20:32)
[2020-02-04] MEDS: SIMVASTATIN 20 MG TABLET 40 MG PO (20:32)
[2020-02-05] VITALS (7 sets, daily range): BP systolic 124–154; BP diastolic 57–68; PULSE 55–79; RESP 18; TEMP 36.1–36.8; O2SAT 96–100
[2020-02-05] MEDS: METOPROLOL TARTRATE 50 MG TAB PO ×2 (08:42→20:33)
[2020-02-05] MEDS: ASPIRIN 325 MG TABLET PO ×2 (08:42→17:08)
[2020-02-05] MEDS: VITAMIN B COMPLEX CAPSULE 1 CAP PO (08:42)
[2020-02-05] MEDS: CYANOCOBALAMIN 1,000 MCG TABLET 1000 MCG PO (08:43)
[2020-02-05] MEDS: predniSONE 5 MG TABLET 15 MG PO (08:43)
[2020-02-05] MEDS: PANTOPRAZOLE SOD SESQUIHYDRATE 20 MG TAB PO (08:43)
[2020-02-05] MEDS: FERROUS SULFATE 324 MG TABLET PO ×2 (08:43→17:08)
[2020-02-05] MEDS: MULTIVITAMINS THERAPEUTIC TAB (*BKC) 1 TABLET PO (08:43)
[2020-02-05] MEDS: OPTI-GEN TAB 1 TABLET PO ×2 (08:43→17:08)
[2020-02-05] MEDS: ALPRAZolam 0.5 MG TABLET PO (20:32)
[2020-02-05] MEDS: MELATONIN 3 MG TABLET PO (20:33)
[2020-02-05] MEDS: SIMVASTATIN 20 MG TABLET 40 MG PO (20:33)
[2020-02-06] VITALS (7 sets, daily range): BP systolic 135–141; BP diastolic 47–61; PULSE 61–90; RESP 16–18; TEMP 35.2–36.9; O2SAT 97–100
[2020-02-06] MEDS: VITAMIN B COMPLEX CAPSULE 1 CAP PO (08:53)
[2020-02-06] MEDS: METOPROLOL TARTRATE 50 MG TAB PO ×2 (08:53→20:44)
[2020-02-06] MEDS: MULTIVITAMINS THERAPEUTIC TAB (*BKC) 1 TABLET PO (08:54)
[2020-02-06] MEDS: CYANOCOBALAMIN 1,000 MCG TABLET 1000 MCG PO (08:54)
[2020-02-06] MEDS: PANTOPRAZOLE SOD SESQUIHYDRATE 20 MG TAB PO (08:54)
[2020-02-06] MEDS: predniSONE 5 MG TABLET 15 MG PO (08:55)
[2020-02-06] MEDS: OPTI-GEN TAB 1 TABLET PO ×2 (08:55→17:17)
[2020-02-06] MEDS: ASPIRIN 325 MG TABLET PO ×2 (08:55→17:17)
[2020-02-06] MEDS: FERROUS SULFATE 324 MG TABLET PO ×2 (08:55→17:17)
[2020-02-06] MEDS: ALPRAZolam 0.5 MG TABLET PO (20:44)
[2020-02-06] MEDS: MELATONIN 3 MG TABLET PO (20:44)
[2020-02-06] MEDS: SIMVASTATIN 20 MG TABLET 40 MG PO (20:44)
[2020-02-07] VITALS (8 sets, daily range): BP systolic 132–144; BP diastolic 48–58; PULSE 67–86; RESP 18–20; TEMP 35.7–36.7; O2SAT 96–98
[2020-02-07] MEDS: OPTI-GEN TAB 1 TABLET PO ×2 (09:09→18:05)
[2020-02-07] MEDS: MULTIVITAMINS THERAPEUTIC TAB (*BKC) 1 TABLET PO (09:09)
[2020-02-07] MEDS: predniSONE 5 MG TABLET 15 MG PO (09:10)
[2020-02-07] MEDS: CYANOCOBALAMIN 1,000 MCG TABLET 1000 MCG PO (09:10)
[2020-02-07] MEDS: FERROUS SULFATE 324 MG TABLET PO ×2 (09:10→18:05)
[2020-02-07] MEDS: PANTOPRAZOLE SOD SESQUIHYDRATE 20 MG TAB PO (09:10)
[2020-02-07] MEDS: VITAMIN B COMPLEX CAPSULE 1 CAP PO (09:10)
[2020-02-07] MEDS: ASPIRIN 325 MG TABLET PO ×2 (09:10→18:05)
[2020-02-07] MEDS: METOPROLOL TARTRATE 50 MG TAB PO ×2 (09:10→20:23)
--- NOTE | 2020-02-07 11:17 | WPDNEURORHBP ---
Subjective Date/time seen: seen on 02/06/20 and documented on 02/07/20,S/Pleft hip fracture and surgery Review of Systems Review of Systems: All systems reviewed & are unremarkable except as noted in HPI and below Functional Status Ambulation Ability Ability to Ambulate 10 Feet: Contact Guard Ambulation Assistive Devices: Walker, Standard Exam Const: General: cooperative, comfortable and no acute distress Nutritional Appearance: well nourished and obese Orientation/consciousness: patient oriented x3 Limitations: no limitations HENMT: Head: normal to inspection Ears: hearing grossly normal bilaterally General nose exam: Normal external nose present Mouth: Yes Normal oral and palatal mucosa present Eyes: General: appearance normal, both eyes and all related structures Neck: Neck: full ROM and no lymphadenopathy Resp: Effort & Inspection: normal respiratory effort and able to speak in complete sentences Cardio: Rate: regular rate GI: Auscultation: normal bowel sounds Skin: General skin exam: no rashes or lesions noted Neuro: General: patient oriented x3 Cranial nerves: Yes CN's II-XII intact bilaterally Cognition (Neuro): normal cognition Speech: normal speech Motor exam (neuro): 5/5 motor strength present throughout Sensory Exam: normal sensation Deep tendon reflexes (DTR's): Right triceps reflex intensity grade: 1+, Left triceps reflex intensity grade: 1+, Rt Biceps (C5, C6): 1+, Left biceps reflex intensity grade: 1+, Right brachioradialis reflex intensity grade: 1+, Left brachioradialis reflex intensity grade: 1+, Right patellar reflex intensity grade: 1+, Left patellar reflex intensity grade: 1+, Right ankle reflex intensity grade: 1+ and Left ankle reflex intensity grade: 1+ Plantar Reflex Responses: downgoing: bilateral Extrem: General: normal to inspection Psych: Appearance: grossly normal Objective Data Vital Signs Vital Signs: Vital Signs - 24 hr 02/06/20 14:00 02/06/20 20:19 02/06/20 20:44 Temperature 36.9 C 36.3 C L Pulse Rate 90 72 70 Respiratory Rate 18 16 Blood Pressure 135/61 141/57 H Pulse Oximetry 98 99 02/07/20 03:52 02/07/20 06:00 02/07/20 09:10 Temperature 36.4 C L Pulse Rate 68 71 68 Respiratory Rate 18 Blood Pressure 138/48 L Pulse Oximetry 97 98 Intake/Output Intake/Output: Intake & Output 02/04/20 02/05/20 02/06/20 02/07/20 23:59 23:59 23:59 23:59 Intake Total 720 1200 960 240 Balance 720 1200 960 240 Meds/Results Medications: Active Medications Generic Name Dose Route Start Last Admin Trade Name Freq PRN Reason Stop Dose Admin Acetaminophen 1,000 mg 01/30/20 19:07 01/31/20 22:44 Tylenol Tablet PO 1,000 mg Q6H PRN Administration Mild Pain (1-3) or Fever Alprazolam 0.5 mg 01/25/20 21:00 02/06/20 20:44 Xanax PO 0.5 mg HS KETAN Administration Artificial Tears 1 drop 01/26/20 13:02 Artificial Tears EACH EYE TID PRN Eye Irritation Aspirin 325 mg 01/26/20 08:00 02/07/20 09:10 Aspirin PO 325 mg BIDWM KETAN Administration Calcium Carbonate 500 mg 01/26/20 09:00 02/07/20 09:10 Os-Farhan 500 +D Tablet PO 500 mg DAILY KETAN Administration Cyanocobalamin 1,000 mcg 01/26/20 09:00 02/07/20 09:10 Vitamin B-12 Tab PO 02/25/20 09:01 1,000 mcg DAILY KETAN Administration Ferrous Sulfate 324 mg 01/25/20 17:00 02/07/20 09:10 Ferrous Sulfate PO 324 mg BID KETAN Administration Meclizine HCl 12.5 mg 01/25/20 18:26 01/27/20 10:52 Antivert PO 12.5 mg QID PRN Administration Dizziness Melatonin 3 mg 01/30/20 21:00 02/06/20 20:44 Melatonin PO 3 mg HS KETAN Administration Metoprolol Tartrate 50 mg 01/25/20 21:00 02/07/20 09:10 Lopressor PO 50 mg Q12HR KETAN Administration Multivitamins Therapeutic 1 tablet 01/26/20 09:00 02/07/20 09:09 Multivitamins Therapeutic(*Bkc PO 1 tablet DAILY KETAN Administration Multivitamins/Minerals 1 tablet 01/24
--- NOTE | 2020-02-07 11:18 | PCOTNOTE ---
It is recommended that this patient, Annie Denise, have a bedside commode for home use. This patient is currently ambulating minimal distance and wheelchair dependent due to strict toe-touch weight bearing left lower extremity. This patient is room confined and unable access her toilet at home secondary weight bearing status and use of wheelchair.Therefore, patient will require use of a bedside commode. The patient also has further impairments of weakness, limited ROM, and decreased endurance. A bedside commode is recommended for home use in order to provide optimal safety and independence with toileting tasks and transfers. The bedside commode will allow patient access to a toilet, will resolve patient's mobility limitations, and will provide safe access to a toilet within her home. I agree with and certify that the above recommendation is medically necessary.
--- NOTE | 2020-02-07 13:02 | PCNFU ---
Nutrition Follow-Up Complete: Increase protien needs related to healing as evidenced by left hip fracture Goal: Patient to consume 75% or more of meals. Patient is meeting goal at an average of 98% meal consumption Pt current nutrition is Heart Healthy (2 grams Na). Nutrition recommendation: Agree with current recommendations. Last recorded weight is 95.2 kg. Bowel Motility: 02/01/20 last bowel movement reported Labs Reviewed: Hgb (9.4) Hct (30.4) Cr (0.6) Glu (107) as of last reported values on 02/02/20. Recommend obtaining new lab values. Meds Noted: xanax, calcium carbonate, vitamin B-12, ferrous sulfate, antivert, lopressor, multivitamin, protonix, zocor, prednisone, vitamin B Additional Notes: Patient is consuming an average of 98% of meals. Patient reported no diet related issues/concerns at this time. Will continue to monitor patient throughout stay. Follow up in 7 days.
--- NOTE | 2020-02-07 13:28 | PCNSR ---
On 02/07/20, the student, [Marc Real ], provided care and completed [facility] documentation on this patient. I have reviewed the student's documentation and agree with the findings.
--- NOTE | 2020-02-07 15:14 | PCOTNOTE ---
It is recommended that this patient, Annie Denise, have a bariatric bedside commode for home use. The patient's anatomical hip width is twenty inches requiring bariatric bedside commode. This patient is currently ambulating minimal distance and wheelchair dependent due to strict toe-touch weight bearing left lower extremity. This patient is room confined and unable access her toilet at home secondary weight bearing status and use of wheelchair. Therefore, patient will require use of a bariatric bedside commode. The patient also has further impairments of weakness, limited ROM, and decreased endurance. A bariatric bedside commode is recommended for home use in order to provide optimal safety and independence with toileting tasks and transfers. The bariatric bedside commode will allow patient access to a toilet, will resolve patient's mobility limitations, and will provide safe access to a toilet within her home. I agree with and certify that the above recommendation is medically necessary.
--- NOTE | 2020-02-07 15:14 | PCOTNOTE ---
It is recommended that this patient, Annie Denise, have a bariatric bedside commode for home use. This patient is currently ambulating minimal distance and wheelchair dependent due to strict toe-touch weight bearing left lower extremity. This patient is room confined and unable access her toilet at home secondary weight bearing status and use of wheelchair.Therefore, patient will require use of a bariatric bedside commode. The patient also has further impairments of weakness, limited ROM, and decreased endurance. A bariatric bedside commode is recommended for home use in order to provide optimal safety and independence with toileting tasks and transfers. The bariatric bedside commode will allow patient access to a toilet, will resolve patient's mobility limitations, and will provide safe access to a toilet within her home. I agree with and certify that the above recommendation is medically necessary.
[2020-02-07] MEDS: MELATONIN 3 MG TABLET PO (20:23)
[2020-02-07] MEDS: SIMVASTATIN 20 MG TABLET 40 MG PO (20:23)
[2020-02-07] MEDS: ALPRAZolam 0.5 MG TABLET PO (20:28)
[2020-02-07] MEDS: ACETAMINOPHEN 500 MG TABLET 1000 MG PO (20:28)
[2020-02-08 01:29] VITALS: PULSE 66; O2SAT 93
[2020-02-08 06:00] VITALS: BP 119/62; PULSE 63; RESP 18; TEMP 35; O2SAT 99
[2020-02-08] MEDS: ASPIRIN 325 MG TABLET PO (09:58)
[2020-02-08] MEDS: CYANOCOBALAMIN 1,000 MCG TABLET 1000 MCG PO (09:59)
[2020-02-08] MEDS: predniSONE 5 MG TABLET 15 MG PO (09:59)
[2020-02-08] MEDS: FERROUS SULFATE 324 MG TABLET PO (09:59)
[2020-02-08 10:00] VITALS: PULSE 63
[2020-02-08] MEDS: MULTIVITAMINS THERAPEUTIC TAB (*BKC) 1 TABLET PO (10:00)
[2020-02-08] MEDS: OPTI-GEN TAB 1 TABLET PO (10:00)
[2020-02-08] MEDS: METOPROLOL TARTRATE 50 MG TAB PO (10:00)
[2020-02-08] MEDS: VITAMIN B COMPLEX CAPSULE 1 CAP PO (10:01)
[2020-02-08] MEDS: PANTOPRAZOLE SOD SESQUIHYDRATE 20 MG TAB PO (10:01)
--- NOTE | 2020-02-08 11:46 | WPDNEURORHBP ---
Subjective Date/time seen: 02/08/20 11:46 Interval history: This 84-year-old woman has finished the rehab after having had surgery of the left hip she did very well and is ready to be discharged today medication will be reconciled patient will have follow-up appointments with the physician involved with the care she will receive the home health PT and OT the arlene have been removed She denies any headache nausea vomiting chest pain shortness of breath fever chills sore throat Review of Systems Review of Systems: All systems reviewed & are unremarkable except as noted in HPI and below Functional Status Ambulation Ability Ability to Ambulate 10 Feet: Contact Guard Ambulation Assistive Devices: Walker, Standard Transfers Ability Ability to Transfer In/Out of Chair: Independent Exam Const: General: comfortable and no acute distress HENMT: General nose exam: Normal nares present Mouth: Yes moist mucous membranes Eyes: General: appearance normal, both eyes and all related structures Neck: Neck: supple and no JVD Resp: Effort & Inspection: normal respiratory effort Auscultation: clear to auscultation bilaterally Cardio: Rate: regular rate Rhythm: regular rhythm GI: GI Palp: Yes Soft to palpation Auscultation: normal bowel sounds Skin: General skin exam: normal color and no rashes or lesions noted Neuro: Other: patient is awake alert well oriented with mild short-term memory deficit but that is stable and no deterioration has been noted her weakness is all related to his her surgery but from that point she has improved significantly Extrem: General: normal to inspection Psych: Mental Status: mental status grossly normal Objective Data Vital Signs Vital Signs: Vital Signs - 24 hr 02/07/20 14:00 02/07/20 20:23 02/07/20 21:31 Temperature 36.7 C Pulse Rate 77 72 67 Respiratory Rate 20 Blood Pressure 132/58 L Pulse Oximetry 98 96 02/07/20 21:42 02/08/20 01:29 02/08/20 06:00 Temperature 35.7 C L 35 C L Pulse Rate 86 66 63 Respiratory Rate 18 18 Blood Pressure 144/52 H 119/62 Pulse Oximetry 98 93 99 02/08/20 10:00 Temperature Pulse Rate 63 Respiratory Rate Blood Pressure Pulse Oximetry Intake/Output Intake/Output: Intake & Output 02/05/20 02/06/20 02/07/20 02/08/20 23:59 23:59 23:59 23:59 Intake Total 1200 960 720 240 Balance 1200 960 720 240 Meds/Results Medications: Active Medications Generic Name Dose Route Start Last Admin Trade Name Manuel PRN Reason Stop Dose Admin Acetaminophen 1,000 mg 01/30/20 19:07 02/07/20 20:28 Tylenol Tablet PO 1,000 mg Q6H PRN Administration Mild Pain (1-3) or Fever Alprazolam 0.5 mg 01/25/20 21:00 02/07/20 20:28 Xanax PO 0.5 mg HS KETAN Administration Artificial Tears 1 drop 01/26/20 13:02 Artificial Tears EACH EYE TID PRN Eye Irritation Aspirin 325 mg 01/26/20 08:00 02/08/20 09:58 Aspirin PO 325 mg BIDWM KETAN Administration Calcium Carbonate 500 mg 01/26/20 09:00 02/08/20 09:59 Os-Farhan 500 +D Tablet PO 500 mg DAILY KETAN Administration Cyanocobalamin 1,000 mcg 01/26/20 09:00 02/08/20 09:59 Vitamin B-12 Tab PO 02/25/20 09:01 1,000 mcg DAILY KETAN Administration Ferrous Sulfate 324 mg 01/25/20 17:00 02/08/20 09:59 Ferrous Sulfate PO 324 mg BID EKTAN Administration Meclizine HCl 12.5 mg 01/25/20 18:26 01/27/20 10:52 Antivert PO 12.5 mg QID PRN Administration Dizziness Melatonin 3 mg 01/30/20 21:00 02/07/20 20:23 Melatonin PO 3 mg HS KETAN Administration Metoprolol Tartrate 50 mg 01/25/20 21:00 02/08/20 10:00 Lopressor PO 50 mg Q12HR KETAN Administration Multivitamins Therapeutic 1 tablet 01/26/20 09:00 02/08/20 10:00 Multivitamins Therapeutic(*Bkc PO 1 tablet DAILY KETAN Administration Multivitamins/Minerals 1 tablet 01/25/20 17:00 02/08/20 10:00 Ocuvite PO 02/24/20 17:01 1 tablet BID KETAN Adm
--- NOTE | 2020-02-12 17:00 | PM.DS ---
DS: Admitting Diagnosis Admitting Diagnosis Admitting Diagnosis: Displaced intertrochanteric fracture of left femur, initial encounter for closed fracture DS: Discharge Diagnosis Discharge Diagnosis (1) Closed intertrochanteric fracture of left hip: Qualifiers: Encounter type: subsequent encounter Fracture alignment: displaced Fracture healing: with routine healing Qualified Code(s): S72.142D - Displaced intertrochanteric fracture of left femur, subsequent encounter for closed fracture with routine healing Code(s): S72.142A - Displaced intertrochanteric fracture of left femur, initial encounter for closed fracture Status: Acute (2) CAD (coronary artery disease): Code(s): I25.10 - Atherosclerotic heart disease of [place] coronary artery without angina pectoris Status: Acute (3) CHF (congestive heart failure): Qualifiers: Heart failure type: combined systolic and diastolic Heart failure chronicity: chronic Qualified Code(s): I50.42 - Chronic combined systolic (congestive) and diastolic (congestive) heart failure Code(s): I50.9 - Heart failure, unspecified Status: Acute (4) Pure hypercholesterolemia, unspecified: Code(s): E78.00 - Pure hypercholesterolemia, unspecified Status: Acute (5) Abdominal aortic aneurysm (AAA) without rupture: Onset Date: 12/08/17 Code(s): I71.4 - Abdominal aortic aneurysm, without rupture Status: Acute (6) Vertigo: Code(s): R42 - Dizziness and giddiness Status: Acute (7) Essential (primary) hypertension: Code(s): I10 - Essential (primary) hypertension Status: Acute (8) Gastro-esophageal reflux disease without esophagitis: Code(s): K21.9 - Gastro-esophageal reflux disease without esophagitis Status: Acute (9) Obstructive sleep apnea (adult) (pediatric): Code(s): G47.33 - Obstructive sleep apnea (adult) (pediatric) Status: Acute (10) Fracture of hip, left, closed: Qualifiers: Encounter type: initial encounter Qualified Code(s): S72.002A - Fracture of unspecified part of neck of left femur, initial encounter for closed fracture Code(s): S72.002A - Fracture of unspecified part of neck of left femur, initial encounter for closed fracture Status: Acute (11) High serum low density lipoprotein (LDL) cholesterol: Code(s): R79.89 - Other specified abnormal findings of blood chemistry Status: Acute (12) PMR (polymyalgia rheumatica): Code(s): M35.3 - Polymyalgia rheumatica Status: Acute DS: Summary Hospital Course Reason for hospitalization: this 84-year-old was admitted because of the multiple medical issues the predominant 1 was the fracture of her left hip with underlying his diagnosis of polymyalgia rheumatic the patient did receive therapy for the medical issues as have been mentioned above most of them a issues mentioned above were quite stable she was having prednisone for her polymyalgia rheumatica or which is being tapered and she will have a follow-up with the primary care physician to the course of hospitalization she received PT OT and gait training and was able to achieve the following any pending measures Hospital Course: eating independent, oral hygiene independent, toileting independent, bathing supervision, upper body dressing independent, lower body dressing and dips setup, footwear says independent, rolling in bed independent, sitting to lying independent, lying to sitting independent, sit to stand independent, chair transfers independent, part transfers independent, car transfers independent, walking 10 feet supervision, walking 50 feet with 2 turns patient was unable to walking 150 feet patient was unable to walking 10 feet uneven surfaces supervision, carb of set up patient was unable to 4 steps patient was unable to 12 status patient is unable to taking of object independent, wheelchair 50 feet independent,
== END 2020-02-08 13:00 | disposition home health service (06) | DRG 560 ==
PROVIDERS: Admitting Provider Psychiatry & Neurology Neurology; PCP Family Medicine; Visit Provider Psychiatry & Neurology Neurology
DX: S72.142D Displaced intertrochanteric fracture of left femur, subsequent encounter for closed fracture with routine healing (principal); E87.1 Hypo-osmolality and hyponatremia; D62 Acute posthemorrhagic anemia; I50.42 Chronic combined systolic (congestive) and diastolic (congestive) heart failure; I25.10 Atherosclerotic heart disease of native coronary artery without angina pectoris; I11.0 Hypertensive heart disease with heart failure; R42 Dizziness and giddiness; G47.33 Obstructive sleep apnea (adult) (pediatric); M16.12 Unilateral primary osteoarthritis, left hip; K21.9 Gastro-esophageal reflux disease without esophagitis; R00.1 Bradycardia, unspecified; E78.5 Hyperlipidemia, unspecified; I71.4 Abdominal aortic aneurysm, without rupture; M35.3 Polymyalgia rheumatica; Z96.653 Presence of artificial knee joint, bilateral; Z95.1 Presence of aortocoronary bypass graft; Z90.710 Acquired absence of both cervix and uterus; Z91.81 History of falling; W19.XXXD Unspecified fall, subsequent encounter
CPT/HCPCS: 36415; 80048; 85025; 94660; 97110; 97116; 97161; 97166; 97530; 97535; 97542; A9270; J7512

== ENCOUNTER 2020-08-14 11:05 | Emergency (ER) | payer MEDICARE, SELFPAY ==
--- NOTE | ~2020-08-14 | XR_ITS ---
EXAMINATION: XR shoulder RT min 2V INDICATION: Right shoulder swelling TECHNIQUE: Four views of the right shoulder are submitted. COMPARISON: 03/25/2015 FINDINGS: No fracture is identified. There is advanced osteoarthritis of the acromioclavicular and gl enohumeral joints with slight interval worsening. Soft tissue swelling overlies the humeral head and proximal humerus. Median sternotomy wires and mediastinal surgical clips are seen, likely from prior coronary artery bypass grafting. IMPRESSION: 1. Soft tissue swelling of the shoulder without definite underlying acute osseous abnormality identif ied. 2. Advanced osteoarthritis of the shoulder with slight interval worsening. Reviewed, dictated and finalized at location A. 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 Soft tissue swelling of the shoulder without definite underlying acute osseo us abnormality identified. 2. Advanced osteoarthritis of the shoulder with slight interval worsening.
[2020-08-14 11:10] VITALS: BP 143/55; PULSE 84; RESP 16; TEMP 37.3; O2SAT 99
--- NOTE | 2020-08-14 11:10 | ED.UPPEXIN ---
HPI - Extremity Injury (Upper) General Chief Complaint: Extremity Injury, Upper Stated Complaint: rt shoulder pain Time Seen by Provider: 08/14/20 11:10 Source: patient and RN notes reviewed Mode of arrival: ambulatory Limitations: no limitations History of Present Illness HPI narrative: 85-year-old female presents to the [facility] with complaints of right shoulder swelling with a mushy spot and increased warmth since yesterday. Reports swelling to the right anterior. Has Decreased ROM but states that has been like that for years. Denies trauma. No bruising noted. No redness. While walking patient holds her cane in her right hand. Has just changed from a walker to a cane. Related Data Home Medications Medication Instructions Recorded Confirmed calcium carbonate 600 mg (1,500 1 cap PO .QD cap 11/30/19 08/10/20 mg)-vitamin D3 500 unit capsule ferrous sulfate 325 mg (65 mg 325 mg PO BID 11/30/19 08/10/20 iron) tablet mecobalamin (vitamin B12) 1,000 1,000 mcg PO DAILY 11/30/19 08/10/20 mcg chewable tablet multivitamin 1 tablet PO DAILY 11/30/19 08/10/20 vit C-vit K-kpyksw-oubh ox-lutein 1 cap PO BID cap 11/30/19 08/10/20 226 mg-200 unit-5 mg-0.8 mg capsule vitamin B complex 1 tablet PO DAILY 11/30/19 08/10/20 Systane Complete 1 drp OPHTHALMIC (EYE) TID PRN 01/22/20 08/10/20 simvastatin 40 mg PO HS 01/22/20 08/14/20 aspirin 81 mg tablet,delayed 81 mg PO DAILY 08/08/20 08/14/20 release Allergies Allergy/AdvReac Type Severity Reaction Status Date / Time No Known Allergies Allergy Verified 08/14/20 11:16 Review of Systems Review of Systems: Narrative: CONSTITUTIONAL: Denies fever, chills, or sweats. EYES: Denies visual changes, redness, or discharge. ENT: Denies rhinorrhea, congestion, sore throat, or otalgia. CARDIOVASCULAR: Denies chest pain, palpitations, or edema. RESPIRATORY: Denies cough or dyspnea. GASTROINTESTINAL: Denies abdominal pain, nausea, vomiting, or diarrhea. GENITOURINARY: Denies dysuria or hematuria. SKIN: Denies rash or itching. MUSCULOSKELETAL: Denies back pain, joint pain, or myalgia. Swelling with increased warmth to the right anterior shoulder. NEUROLOGIC: Denies headache, numbness, or weakness. PSYCHIATRIC: Denies anxiety or depression. All other systems reviewed are negative, except as documented in HPI. [facility] Past Medical History Medical History Abdominal aortic aneurysm (AAA) without rupture (12/08/17) -3.2 cm CAD (coronary artery disease) CHF (congestive heart failure) EF 45% on 2017 echo Essential (primary) hypertension Gastro-esophageal reflux disease without esophagitis Obstructive sleep apnea (adult) (pediatric) Pure hypercholesterolemia, unspecified Vertigo Surgical History Surgical History Closed intertrochanteric fracture of left hip surgical repair January 2020 H/O: hysterectomy History of knee replacement Bilateral History of vein stripping Hx of CABG Family History Family History Father Family history of cardiovascular disease, Onset Age: 86 Mother Family history of cardiovascular disease, Onset Age: 87 Sibling Acute myocardial infarction Family history of lung cancer Family history of malignant neoplasm of breast in first degree relative Family history of malignant neoplasm of urinary bladder Social History Social History Social History: Patient lives at home with Allan, whom she designates as her surrogate MDM, and her daughter. Her PCP is Dr. Cohen. She is listed as a Full Code Smoking status: Never smoker Second hand tobacco smoke exposure: No Alcohol intake: never Substance use: never Substance use type: does not use Gender identity (if verbalized by the patient): Female Spiritual care concerns:
== END 2020-08-14 12:09 | disposition home or self-care (01) ==
PROVIDERS: Emergency Provider Nurse Practitioner; PCP Family Medicine
DX: M75.51 Bursitis of right shoulder (principal); M19.011 Primary osteoarthritis, right shoulder; I25.10 Atherosclerotic heart disease of native coronary artery without angina pectoris; I11.0 Hypertensive heart disease with heart failure; I50.9 Heart failure, unspecified; K21.9 Gastro-esophageal reflux disease without esophagitis; G47.33 Obstructive sleep apnea (adult) (pediatric); E78.00 Pure hypercholesterolemia, unspecified
CPT/HCPCS: 73030; 99213; G0463

== ENCOUNTER 2020-10-25 12:28 | Outpatient (CLI) | payer MEDICARE, SELFPAY ==
--- NOTE | ~2020-10-25 | MM_ITS ---
EXAMINATION: MM screening kerry BI w holly HISTORY: Screening mammogram TECHNIQUE: Craniocaudal and mediolateral oblique 3-D tomosynthesis images were obtained and synthetic 2-D images were generated. CAD analysis was submitted and interpreted. COMPARISON: 05/31/2019, 02/17/2018, 02/10/2017 bilateral digital screening mammogram examinations BREAST PARENCHYMAL COMPOSITION: There are scattered areas of fibroglandular density. FINDINGS: There is no evidence of suspicious mass, calcification, or architectural distortion to sugg est malignancy in either breast. There has been no suspicious interval change. IMPRESSION: 1. No mammographic evidence of malignancy. 2. Recommend routine screening mammography in one year. BI-RADS Category 1: Negative Reviewed, dictated and finalized at location A.
== END 2020-10-25 12:29 | disposition home or self-care (01) ==
PROVIDERS: PCP Family Medicine; Visit Provider Physician Assistant
DX: Z12.31 Encounter for screening mammogram for malignant neoplasm of breast (principal)
CPT/HCPCS: 77063; 77067

== ENCOUNTER 2020-12-15 14:39 | Outpatient (CLI) | payer MEDICARE, SELFPAY ==
--- NOTE | ~2020-12-15 | DEXA_ITS ---
Bone Density Report Name: Annie Denise I Age: 85 Sex: Female Ethnicity: White Date of : 1935 Indication: osteopenia; monitoring treatment; height loss; prior fracture; hysterectomy; postmenopausal Referring Provider: Alok Rodriguez Study: Bone densitometry was performed. Exam Date: December 15, 2020 Accession number: [id number] Bone Density: Region BMD T-score Z-score Classification AP Spine (L1-L4) 1.211 1.5 4.3 Normal Femoral Neck (Right) 0.714 -1.2 1.3 Osteopenia Total Hip (Right) 0.774 -1.4 0.9 Osteopenia World Health Organization criteria for BMD impression classify patients as: Normal (T-score at or above -1.0), Osteopenia (T-score between -1.0 and -2.5), or Osteoporosis (T-score at or below -2.5). 10-year Fracture Risk: FRAX not reported because: Treated for osteoporosis Previous Exams: Region Exam Age BMD T-score BMD Change BMD Change Date g/cm2 vs Baseline vs Previous AP Spine(L1-L4) 12/15/2020 85 1.211 1.5 0.128(11.8%)# 0.109(9.9%)# 11/13/2006 71 1.101 0.5 0.018(1.7%) -0.001(-0.1%) 11/12/2004 69 1.102 0.5 0.019(1.8%) 0.019(1.8%) 11/04/2001 66 1.083 0.3 Total Hip(Right) 12/15/2020 85 0.774 -1.4 -0.034(-4.2%)# 0.010(1.3%) 02/08/2016 80 0.764 -1.5 -0.044(-5.4%)# -0.077(-9.1%)# 11/13/2006 71 0.841 -0.8 0.033(4.1%)* 0.017(2.0%) 11/12/2004 69 0.824 -1.0 0.016(2.0%) 0.016(2.0%) 11/04/2001 66 0.808 -1.1 *Denotes significance at 95% confidence level, LSC for AP Spine = 0.022 g/cm2, LSC for Total Hip = 0.027 g/cm2 Clinical Information Provided by Patient: Has had a low trauma fracture Is being treated for osteoporosis Has used the following medications: Vitamin D, Calcium Has the following medical conditions: Hysterectomy Patient maximum height was 64 No regular weight bearing exercise Onset of menses at age 13 Number of children 5 Impression: The patient has low bone mass, based on the Right Total Hip T-score. The patient has risk factors, including: previous fracture. No significant bone loss was observed. Discussion: PATIENT UNDER TREATMENT WITH NO SIGNIFICANT BMD LOSS SINCE LAST EXAM. In an untreated patient, BMD typically declines with age. A lack of decline or gain is usually a sign that treatment is efficacious and fracture risk is reduced. It is important to ask patients whether they are taking their medications and to encourage continued and appropriate compliance with their osteoporosis therapies to reduce fracture risk.
== END 2020-12-15 14:40 | disposition home or self-care (01) ==
LOC: ANHIMG 14:45
PROVIDERS: PCP Family Medicine; Visit Provider Physician Assistant
DX: N95.9 Unspecified menopausal and perimenopausal disorder (principal); M85.851 Other specified disorders of bone density and structure, right thigh
CPT/HCPCS: 77080

== ENCOUNTER 2021-09-10 14:43 | Outpatient (CLI) | payer MEDICARE, SELFPAY ==
--- NOTE | ~2021-09-10 | XR_ITS ---
EXAMINATION: XR shoulder RT min 2V DATE: 09/10/2021 15:12 INDICATION: Right shoulder pain. TECHNIQUE: 4 views of right shoulder were obtained. COMPARISON: Right shoulder radiographs 08/14/2020 FINDINGS: There is superior subluxation of humeral head with respect to glenoid with narrowing of the subacromial space and remodeling of the undersurface of the acromion, consistent with chronic rotato r cuff tear with contrast arthropathy. There is severe osteoarthritis of glenohumeral joint and acrom ioclavicular joint. Median sternotomy wires and mediastinal surgical clips are seen, likely from prio r coronary artery bypass grafting. IMPRESSION: 1. Severe polyarticular osteoarthritis. 2. Chronic right rotator cuff tear with cuff arthropathy. Reviewed, dictated and finalized at location A. 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
--- NOTE | ~2021-09-10 | XR_ITS ---
EXAMINATION:XR cervical spine min 6V DATE: 09/10/2021 15:11 INDICATION: Neck pain TECHNIQUE: AP, lateral, lateral swimmers, lateral flexion, lateral extension and odontoid views of th e cervical spine are provided. COMPARISON: None FINDINGS: Alignment is normal. Odontoid is intact. Severe atlantoaxial osteoarthritis. Hypomobility of the cerv ical spine with only 7 degrees of change between flexion and extension measured between C2 and C6. No spondylolisthesis or abnormal transitory motion with flexion or extension. Vertebral body heights ar e normal. Moderate disc height loss at C4-C5 through C6-C7 and mild disc height loss at the remaining cervical levels. Ossification along the anterior longitudinal ligament with prominent bridging or ne neto bridging osteophytes throughout the cervical spine consistent with diffuse idiopathic skeletal h yperostosis (DISH). Multilevel moderate to severe cervical facet and uncovertebral osteoarthritis. At herosclerotic calcific a cyst at the bilateral carotid bulbs. Median sternotomy wires and mediastinal surgical clips are seen, likely from prior coronary artery bypass grafting. Calcified nodule at the left upper lung zone consistent with old granulomatous disease. IMPRESSION: 1. Hypomobility of the cervical spine likely due to combination of moderate to severe spondylosis and DISH. Reviewed, dictated and finalized at location A. UMER
== END 2021-09-10 14:44 | disposition home or self-care (01) ==
LOC: ANHIMG 14:50
PROVIDERS: PCP Family Medicine; Visit Provider Family Medicine
DX: M54.2 Cervicalgia (principal); M25.519 Pain in unspecified shoulder; M47.812 Spondylosis without myelopathy or radiculopathy, cervical region; M48.12 Ankylosing hyperostosis [Forestier], cervical region; M19.011 Primary osteoarthritis, right shoulder; M75.101 Unspecified rotator cuff tear or rupture of right shoulder, not specified as traumatic
CPT/HCPCS: 72052; 73030

== ENCOUNTER 2021-10-14 13:09 | Emergency (ER) | payer MEDICARE, SELFPAY ==
--- NOTE | ~2021-10-14 | XR_ITS ---
EXAMINATION: XR wrist RT min 3V, XR hand RT min 3V EXAM DATE: 10/14/2021 14:07 INDICATION: Initial encounter following injury, with pain of the right hand, wrist. TECHNIQUE: Right hand frontal, lateral and oblique projections obtained and reviewed. Right wrist fro ntal, frontal with ulnar deviation, oblique and lateral projections obtained and reviewed. There is no prior study for comparison. FINDINGS: There is acute closed posttraumatic nondisplaced fracture through the proximal aspect of th e right 5th carpal bone. Scapholunate joint space is maintained. There is moderate radiocarpal, ramírez caphe, 1st and 5th carpometacarpal joint primary osteoarthritis. Moderate polyarticular interphalange al primary osteoarthritis. IMPRESSION: 1. Acute right 5th metacarpal shaft fracture proximally. 2. Moderate polyarticular osteoarthritis. 3. Osteopenia. Reviewed, dictated and finalized at location A. IMPRESSION: 1. Acute right 5th metacarpal shaft fracture proximally. 2. Moderate polyarticular osteoarthritis. 3. Osteopenia.
--- NOTE | ~2021-10-14 | CT_ITS ---
EXAMINATION: CT brain wo con EXAM DATE: 10/14/2021 13:54 INDICATION: Fall, hit right side of head. TECHNIQUE: Spiral CT of the head was performed without contrast. Axial, coronal and sagittal images were reviewed. The dose-length product (DLP) for this examination was 529.67 mGy-cm. The exposure w as tailored according to patient size, and iterative reconstruction (ASIR) was used as additional dos e reduction technique. Comparison is made to prior examination from 02/14/2016. FINDINGS: There is no acute intraparenchymal hemorrhage. No evidence of intraparenchymal brain mass lesion. No evidence of acute infarction. Please note that initial head CT has limited sensitivity f or small or acute infarctions. There is mild to moderate periventricular and subcortical hypodensity, nonspecific but probably related to small vessel ischemic disease. There is mild prominence of the sulci and ventricles related to cerebral atrophy. There is intracranial carotid arteriosclerosis. There are no extra-axial collections. There is no mass effect or midline shift. Patient has had bi lateral ocular lens surgery. Soft tissue is unremarkable. The visualized sinuses and mastoid air ce lls are well aerated. IMPRESSION: 1. No acute intracranial findings. 2. Chronic age related findings. Reviewed, dictated and finalized at location A.
--- NOTE | ~2021-10-14 | XR_ITS ---
EXAMINATION: [id number] EXAM DATE: 10/14/2021 14:07 INDICATION: Fall, right rib pain. TECHNIQUE: Frontal projection of the upper right ribs, frontal projection of the lower right ribs, ob lique projection of the right ribs, frontal chest x-ray(s) for interpretation. FINDINGS: Sternotomy wires are present without findings to suggest sternal dehiscence. The lungs are clear. There are no pleural effusions. Bones are osteopenic. Please note that osteopenia limits sen sitivity for detecting fractures by radiographs. No displaced right rib fracture identified. The car diomediastinal silhouette is prominent but magnified on this AP technique. No confluent consolidati on, pneumothorax or pleural effusion suspected. There is moderate to severe right shoulder primary os teoarthritis. IMPRESSION: No acute displaced right rib fractures. Reviewed, dictated and finalized at location A.
[2021-10-14 13:25] VITALS: BP 129/98; PULSE 65; RESP 18; TEMP 36.6; O2SAT 100
--- NOTE | 2021-10-14 13:47 | PC.NURSE ---
Pt to XRAY and CT scan via stretcher at this time.
[2021-10-14] MEDS: TETANUS,DIPHTHERIA,AC PERTUSSIS ADULT (0.5 ML) BOOSTRIX IM (14:18)
--- NOTE | 2021-10-14 14:45 | ED.FALL ---
HPI - Fall General Chief Complaint: Fall Stated Complaint: fall Time Seen by Provider: 10/14/21 13:29 Source: RN notes reviewed History of Present Illness HPI Narrative: Patient presents emergency department from home for a fall. Patient states that yesterday she was coming down the front stair in front of her house when she had stepped the wrong foot and fallen states she fell on her right side noting striking her head states she has an abrasion on her right side of her head but did not lose consciousness she notes pain in her right hand as well as in her right anterior ribs she denies any loss of consciousness she denies any vision changes, shortness of breath, dull pain nausea vomiting or any other symptoms. Patient states she is unsure of her last tetanus shot Related Data Home Medications Medication Instructions Recorded Confirmed calcium carbonate 600 mg-vitamin 1 cap PO .QD cap 11/30/19 09/10/21 D3 12.5 mcg (500 unit) capsule ferrous sulfate 325 mg (65 mg 325 mg PO BID 11/30/19 09/10/21 iron) tablet mecobalamin (vitamin B12) 1,000 1,000 mcg PO DAILY 11/30/19 09/10/21 mcg chewable tablet multivitamin 1 tablet PO DAILY 11/30/19 09/10/21 vit C-vit V-vgwupx-zhhi ox-lutein 1 cap PO BID cap 11/30/19 09/10/21 226 mg-200 unit-5 mg-0.8 mg capsule vitamin B complex 1 tablet PO DAILY 11/30/19 09/10/21 Systane Complete 1 drp OPHTHALMIC (EYE) TID PRN 01/22/20 09/10/21 aspirin 81 mg tablet,delayed 81 mg PO DAILY 08/08/20 09/10/21 release Allergies Allergy/AdvReac Type Severity Reaction Status Date / Time No Known Allergies Allergy Verified 10/14/21 13:28 Review of Systems Review of Systems: Gen.: Denies fevers or chills Eyes: Denies eye pain or visual change ENT: Reports facial abrasion Respiratory: Denies shortness of breath CV: Denies chest pain GI: Denies abdominal pain nausea, emesis Musculoskeletal: See HPI Neuro: Denies numbness, tingling, weakness or focal weakness Skin: Denies rash Except as documented, all other systems reviewed and negative PMFSH Past Medical History Medical History Abdominal aortic aneurysm (AAA) without rupture (12/08/17) -2019 -3.2 cm CAD (coronary artery disease) cabg 2017 CHF (congestive heart failure) EF 45% on 2017 echo COVID-19 Jun, 2020 Essential (primary) hypertension Gastro-esophageal reflux disease without esophagitis Obstructive sleep apnea (adult) (pediatric) PMR (polymyalgia rheumatica) Pure hypercholesterolemia, unspecified Vertigo Surgical History Surgical History Closed intertrochanteric fracture of left hip surgical repair January 2020 H/O: hysterectomy History of knee replacement Bilateral History of vein stripping Hx of CABG 2017 S/P CABG x 2 Family History Family History Father Family history of cardiovascular disease, Onset Age: 86 Mother Family history of cardiovascular disease, Onset Age: 87 Sibling Acute myocardial infarction Family history of lung cancer Family history of malignant neoplasm of breast in first degree relative Family history of malignant neoplasm of urinary bladder Social History Social History Social History: Patient lives at home with Allan, whom she designates as her surrogate MDM, and her daughter. Her PCP is Dr. Cohen. She is listed as a Full Code Second hand tobacco smoke exposure: No Alcohol intake: never Substance use: never Substance use type: does not use Gender identity (if verbalized by the patient): Female Spiritual care concerns: No Exam Narrative: APPEARANCE: No acute distress, nontoxic, resting in bed EYES: EOMI, PERRL HEENT: Normocephalic, abrasion over the right lateral buddhism no facial tenderness Neck: Supple no m
[2021-10-14] MEDS: ACETAMINOPHEN 500 MG TABLET 1000 MG PO (14:58)
[2021-10-14 15:01] VITALS: BP 144/86; PULSE 66; RESP 18; O2SAT 99
== END 2021-10-14 15:18 | disposition home or self-care (01) ==
PROVIDERS: Emergency Provider Emergency Medicine; PCP Family Medicine
DX: S62.354A Nondisplaced fracture of shaft of fourth metacarpal bone, right hand, initial encounter for closed fracture (principal); S20.211A Contusion of right front wall of thorax, initial encounter; S00.81XA Abrasion of other part of head, initial encounter; Z23 Encounter for immunization; I25.10 Atherosclerotic heart disease of native coronary artery without angina pectoris; I50.9 Heart failure, unspecified; Z86.16 Personal history of COVID-19; I11.0 Hypertensive heart disease with heart failure; K21.9 Gastro-esophageal reflux disease without esophagitis; G47.33 Obstructive sleep apnea (adult) (pediatric); E78.00 Pure hypercholesterolemia, unspecified; Z95.1 Presence of aortocoronary bypass graft; Z96.653 Presence of artificial knee joint, bilateral; Z79.82 Long term (current) use of aspirin; M18.9 Osteoarthritis of first carpometacarpal joint, unspecified; M19.031 Primary osteoarthritis, right wrist; M85.841 Other specified disorders of bone density and structure, right hand; W10.9XXA Fall (on) (from) unspecified stairs and steps, initial encounter
CPT/HCPCS: 70450; 71101; 73110; 73130; 90471; 90715; 99284; A9270

== ENCOUNTER 2022-01-10 13:48 | Outpatient (CLI) | payer MEDICARE, SELFPAY ==
--- NOTE | ~2022-01-10 | XR_ITS ---
XR foot RT min 3V DATE: 01/10/2022 14:30 INDICATION: Pain/burning. No injury. TECHNIQUE: 4 views COMPARISON: None FINDINGS: Osteopenia. There are prominent plantar and posterior calcaneal Tibiotalar, tarsal, tarsometatarsal and first metatarsophalangeal joint osteoarthritis. IMPRESSION: Osteopenia Very prominent plantar and posterior calcaneal enthesopathy Osteoarthritic changes Reviewed, dictated and finalized at location A.
--- NOTE | ~2022-01-10 | XR_ITS ---
XR ankle RT min 3V DATE: 01/10/2022 14:30 INDICATION: Intermittent right ankle pain/burning. No injury. TECHNIQUE: 4 views COMPARISON: None FINDINGS: Osteopenia. There are prominent plantar and posterior calcaneal enthesopathy. There is osteoarthritis at the tibiotalar joint. No recent fracture or dislocation of the ankle or disruption of the ankle mortise is detected. No per iosteal reaction or bone destruction. Posterior tibial artery calcification. IMPRESSION: Osteopenia Tibiotalar osteoarthritis Very prominent plantar and posterior calcaneal enthesopathy Reviewed, dictated and finalized at location A.
== END 2022-01-10 13:49 | disposition home or self-care (01) ==
PROVIDERS: PCP Family Medicine; Visit Provider Physician Assistant
DX: M79.671 Pain in right foot (principal); M85.871 Other specified disorders of bone density and structure, right ankle and foot
CPT/HCPCS: 73610; 73630

== ENCOUNTER 2022-02-20 11:12 | Outpatient (CLI) | payer MEDICARE, SELFPAY ==
--- NOTE | ~2022-02-20 | MM_ITS ---
EXAMINATION: MM screening kerry BI w holly HISTORY: Screening mammogram TECHNIQUE: Craniocaudal and mediolateral oblique 3-D tomosynthesis images were obtained and synthetic 2-D images were generated. CAD analysis was submitted and interpreted. COMPARISON: 10/25/2020, 05/31/2019, 02/17/2018 bilateral screening mammogram examinations BREAST PARENCHYMAL COMPOSITION: There are scattered areas of fibroglandular density. FINDINGS: Benign calcifications, particularly including arterial calcifications. A couple of stable 3 mm and 4.5 mm circumscribed low-density opacities, likely intramammary lymph nodes, noted on the lef t .... There is no evidence of suspicious mass, calcification, or architectural distortion to suggest malignancy in either breast. There has been no suspicious interval change. IMPRESSION: 1. No mammographic evidence of malignancy. 2. Recommend routine screening mammography in one year. BI-RADS Category 2: Benign finding(s). Reviewed, dictated and finalized at location A.
== END 2022-02-20 11:13 | disposition home or self-care (01) ==
PROVIDERS: PCP Family Medicine; Visit Provider Physician Assistant
DX: Z12.31 Encounter for screening mammogram for malignant neoplasm of breast (principal)
CPT/HCPCS: 77063; 77067

== ENCOUNTER → 2022-06-19 08:05 | Outpatient (CLI) | payer MEDICARE, SELFPAY ==
--- NOTE | ~2022-06-19 | US_ITS ---
EXAMINATION: US aorta DATE: 06/19/2022 08:29 INDICATION: Abdominal aortic aneurysm without rupture. TECHNIQUE: Grayscale, color Doppler, and pulsed Doppler images of the aorta and common iliac arteries were obtained. COMPARISON: CT abdomen 01/19/2020 FINDINGS: The aorta demonstrates a 3.2 cm fusiform infrarenal aneurysm. The right common iliac artery is normal in caliber. The left common iliac artery is normal in caliber. IMPRESSION: 1. 3.2 cm fusiform aneurysm of infrarenal aorta, stable from 01/19/2020 . Reviewed, dictated and finalized at location A. 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
== END ==
PROVIDERS: PCP Family Medicine; Visit Provider Family Medicine
DX: I71.40 Abdominal aortic aneurysm, without rupture, unspecified (principal)
CPT/HCPCS: 76775

== ENCOUNTER 2023-07-10 09:20 | Outpatient (CLI) | payer MEDICARE, SELFPAY ==
--- NOTE | ~2023-07-10 | US_ITS ---
EXAMINATION: US aorta DATE: 07/10/2023 10:27 INDICATION: Abdominal aortic aneurysm without rupture TECHNIQUE: Grayscale, color Doppler, and pulsed Doppler images of the aorta and common iliac arteries were obtained. COMPARISON: 06/19/2022 FINDINGS: Maximum vascular dimensions are as follows: Proximal aorta: 2.7 cm Mid aorta: 2.5 cm Distal aorta: 3.2 cm Right common iliac artery: 1.3 cm Left common iliac artery: 1.5 cm There is a 3.2 x 3.0 cm fusiform aneurysm of the infrarenal abdominal aorta which is sonographically stable. IMPRESSION: 1. Sonographically stable fusiform infrarenal abdominal aortic aneurysm. Reviewed, dictated and finalized at location A. 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
== END 2023-07-10 09:21 | disposition home or self-care (01) ==
PROVIDERS: PCP Family Medicine; Visit Provider Family Medicine
DX: I71.43 Infrarenal abdominal aortic aneurysm, without rupture (principal)
CPT/HCPCS: 76775

== ENCOUNTER 2023-08-09 14:41 | Emergency (ER) | payer MEDICARE, SELFPAY ==
--- NOTE | ~2023-08-09 | XR_ITS ---
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 RESULT: Lines, tubes, and devices: Intact sternotomy wires. Mediastinal surgical clips. Lungs and pleura: Clear. Cardiomediastinal silhouette: Stable. Other: No acute osseous or upper abdominal finding. IMPRESSION: No acute cardiopulmonary process. Reviewed, dictated and finalized at location K. IFIED SOLID WASTE FACILITY OPERATOR
--- NOTE | ~2023-08-09 | CT_ITS ---
EXAMINATION: CT brain wo con DATE: 08/09/2023 15:58 INDICATION: RLE weakness . TECHNIQUE: Computed tomography (CT) of the head was performed without intravenous contrast. The mA wa s adjusted according to patient size. Iterative reconstruction technique was employed. The dose-lengt h product was 529.67 mGy-cm. COMPARISON: 10/14/2021. FINDINGS: No acute intracranial hemorrhage or extra-axial fluid collection. No hydrocephalus, mass, or herniation. No acute ischemic infarct. Unremarkable dural venous sinus attenuation. No acute osseous abnormality. The aerated spaces are clear. Mild atrophy and chronic white matter change. Atherosclerotic intracranial calcification. Bilateral l ens replacements. Focal encephalomalacia in the right periventricular white matter and centrum semiov oseas. IMPRESSION: No acute intracranial process. Reviewed, dictated and finalized at location K. 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
[2023-08-09 14:39] VITALS: BP 132/59; PULSE 58; RESP 17; TEMP 36.6; O2SAT 99
--- NOTE | 2023-08-09 14:50 | ECG_ITS ---
Measurements Intervals [place] Rate: 55 P: -78 [place]: 201 QRS: -61 QRSD: 139 T: 32 QT: 445 QTc: 428 Interpretive Statements SINUS BRADYCARDIA INTRAVENTRICULAR CONDUCTION DELAY LEFT VENTRICULAR HYPERTROPHY AND ST-T CHANGE POSSIBLE ANTERIOR MYOCARDIAL INFARCTION , OF INDETERMINATE AGE INFERIOR MYOCARDIAL INFARCTION , OF INDETERMINATE AGE Electronically Signed On 08-10-2023 11:33:43 BASKET MAKER by Cesario Gauthier M.D.
[2023-08-09 15:32] LABS: Basophils Percent Auto 0.2 % (0.2-1.2); Eosinophils Absolute Auto 0.2 K/mm3 (0-0.3); Eosinophils Percent Auto 3.1 % (0-4.4); Hematocrit 34.6 % (37.0-47.0); Hemoglobin 10.5 g/dL (12.0-15.0); Immature Granulocyte Absolute 0.01 K/mm3 (0.00-0.031); Immature Granulocyte Percent A 0.2 % (0-0.5); Lymphocytes Absolute Auto 0.85 K/mm3 (0.9-3.2); Lymphocytes Percent Auto 17.8 % (18.3-44.2); Mean Corpuscular HGB Conc 30.3 g/dl (32-36); Mean Corpuscular Hemoglobin 29.5 pg (26-34); Mean Corpuscular Volume 97.2 fl (80-100); Mean Platelet Volume 9.1 fl (7.4-10.4); Monocytes Absolute Auto 0.3 K/mm3 (0.1-0.6); Monocytes Percent Auto 6.5 % (2.6-8.5); Neutrophils Absolute Auto 3.4 K/mm3 (1.3-6.7); Neutrophils Percent Auto 72.2 % (45.5-73.1); Platelet Count Result 132 k/mm3 (150-375); Red Blood Count 3.56 M/mm3 (4.2-5.4); Red Cell Distribution Width 13.9 % (11.5-14.5); White Blood Count 4.8 K/mm3 (4.5-10.0)
[2023-08-09 15:43] LABS: Alanine Aminotransferase 23 U/L (6-35); Albumin Level 3.4 g/dL (3.5-5.1); Alkaline Phosphatase 114 U/L (38-126); Anion Gap 3 mmol/L (8-16); Aspartate Amino Transferase 43 U/L (14-36); Bilirubin,Total 0.5 mg/dL (0.2-1.3); Blood Urea Nitrogen 17 mg/dL (7-17); Calcium 9.4 mg/dL (8.4-10.2); Carbon Dioxide 31 mmol/L (22-30); Chloride 106 mmol/L (98-107); Estimated CRCL calculation 59 ml/min; Estimated Glomerular Filt Rate > 60; Glucose 112 mg/dL (65-110); Potassium 4.3 mmol/L (3.4-5.0); Sodium 140 mmol/L (137-145)
--- NOTE | 2023-08-09 15:48 | ED.GENADULT ---
HPI - General Adult General Chief complaint: Weakness Stated complaint: weakness Time Seen by Provider: 08/09/23 15:26 History of Present Illness HPI narrative: 88-year-old female presenting to the emergency department for evaluation of weakness. Patient states she was at home and she was soaking her feet when she had onset of weakness. Patient reports she tried to lift her legs out of the water but just felt increasingly weak. Patient had a family member come over to help her and patient states that she felt her entire body was weak. She reports that it felt like all the strength left her body. Upon arrival to the emergency department patient states that she feels back to her baseline and has no weakness Related Data Home Medications Medication Instructions Recorded Confirmed calcium carbonate 600 mg-vitamin 1 cap PO .QD 11/30/19 06/12/23 D3 12.5 mcg (500 unit) capsule (Calcium 600 with Vitamin D3) multivitamin 1 tablet PO DAILY 11/30/19 06/12/23 vit C 226 mg-vit E 90 mg-copper 1 cap PO BID 11/30/19 06/12/23 0.8 mg-zinc oxide-lutein 5 mg capsule (PreserVision Lutein) aspirin 81 mg tablet,delayed 81 mg PO DAILY 08/08/20 06/12/23 release acetaminophen 325 mg capsule 650 mg PO Q6H PRN 06/13/22 06/12/23 ferrous sulfate 325 mg (65 mg 325 mg PO .COMPLEX 06/12/23 06/12/23 iron) tablet (Feosol) Allergies Allergy/AdvReac Type Severity Reaction Status Date / Time No Known Allergies Allergy Verified 06/12/23 10:06 Review of Systems Review of Systems: All systems reviewed & are unremarkable except as noted in HPI and below FORMERLY [facility], [facility] Past Medical History Medical History Abdominal aortic aneurysm (AAA) without rupture (12/08/17) 12.4.22: infrarenal 3.2 cm (stable since 01.19.2020) CAD (coronary artery disease) cabg 2016 CHF (congestive heart failure) echo 8.8.22: ef 52% COVID-19 Jun, 2020 Essential (primary) hypertension Fracture of fifth metacarpal bone Fracture of hip, left, closed Gastro-esophageal reflux disease without esophagitis PMR (polymyalgia rheumatica) Shoulder arthritis Sprain of cervical neck Vertigo Surgical History Surgical History Closed intertrochanteric fracture of left hip surgical repair January 2020 H/O: hysterectomy History of knee replacement Bilateral History of vein stripping Hx of CABG Hx of CABG 2017 S/P CABG x 2 Family History Family History Father Family history of cardiovascular disease, Onset Age: 86 Mother Family history of cardiovascular disease, Onset Age: 87 Sibling Acute myocardial infarction Family history of lung cancer Family history of malignant neoplasm of breast in first degree relative Family history of malignant neoplasm of urinary bladder Social History Social History Social History: Patient lives at home with Allan, whom she designates as her surrogate MDM, and her daughter. Her PCP is Dr. Cohen. She is listed as a Full Code Smoking status: Never smoker Second hand tobacco smoke exposure: No Alcohol intake: never Substance use: never Substance use type: does not use Lack of Transportation: No Lack of Food: Never True Current Housing: I Have Housing Concerned About Future Housing: No Difficulty Paying Gas/Electric Bills: No Difficulty Paying for Meds: No Currently Unemployed: No Education: High School Diploma/GED Difficulty w/ Childcare or Family Care: No Gender identity (if verbalized by the patient): Female Spiritual care concerns: No Exam Narrative: APPEARANCE: Well appearing, no pain, no distress, well-nourished. HEAD: normocephalic, atraumatic. EYES: PERRLA/EOMI, conjunctivae clear. NOSE: Normal no drainage NECK: Supple. No adeno
[2023-08-09 16:16] LABS: Appearance Urine Clear (Clear); Bacteria Urine None Seen /hpf; Bilirubin Urine Negative (Negative); Blood Urine Negative (Negative); Color Urine Yellow (Yellow); Glucose Urine UA Negative (Negative); Hyaline Casts Urine Present /lpf; Ketones Urine Negative (Negative); Leukocyte Esterase Ur 2+ LEU/UL (Negative); Nitrate Urine Negative (Negative); Protein Urine Negative (Negative); RBC Urine 0-2 /hpf (0-2); Specific Grav Ur 1.018 (1.001-1.035); Squamous Epithelial Cell Urine Occasional /hpf (Few); Urobilinogen Urine 0.2 mg/dL (<2.0); pH Urine 5.5 (5.0-9.0)
[2023-08-09 16:17] LABS: Add Urine Microscopic? YES
[2023-08-09 16:20] VITALS: BP 156/71; PULSE 63; RESP 16; O2SAT 100
[2023-08-09 16:58] LABS: Influenza A QL RT-PCR Negative (Negative); Influenza B QL RT-PCR Negative (Negative); RSV RNA, RT-PCR Negative (Negative); SARS-CoV-2 RNA PCR Negative (Negative)
[2023-08-09 18:06] VITALS: BP 154/68; PULSE 58; RESP 17; O2SAT 100
== END 2023-08-09 18:21 | disposition home or self-care (01) ==
PROVIDERS: Emergency Provider Emergency Medicine; PCP Family Medicine
DX: N39.0 Urinary tract infection, site not specified (principal); R53.1 Weakness; Z20.822 Contact with and (suspected) exposure to COVID-19; I25.10 Atherosclerotic heart disease of native coronary artery without angina pectoris; I50.9 Heart failure, unspecified; I11.0 Hypertensive heart disease with heart failure; K21.9 Gastro-esophageal reflux disease without esophagitis; M35.3 Polymyalgia rheumatica; M19.019 Primary osteoarthritis, unspecified shoulder; Z96.653 Presence of artificial knee joint, bilateral; Z95.1 Presence of aortocoronary bypass graft; Z86.16 Personal history of COVID-19; Z90.710 Acquired absence of both cervix and uterus; Z79.82 Long term (current) use of aspirin
CPT/HCPCS: 36415; 70450; 71046; 80053; 81001; 85025; 87086; 87637; 93005; 96365; 99284; J0696

== ENCOUNTER 2024-01-10 05:52 | Emergency (ER) | payer MEDICARE, SELFPAY ==
[2024-01-10] VITALS (16 sets, daily range): BP systolic 144–166; BP diastolic 60–101; PULSE 58–77; RESP 12–20; TEMP 36.7; O2SAT 99–100
--- NOTE | ~2024-01-10 | XR_ITS ---
EXAMINATION: XR chest 1V portable DATE: 01/10/2024 06:36 INDICATION: Left chest pain. TECHNIQUE: A single frontal view of the chest was obtained. COMPARISON: Chest 2 views 08/09/2023 FINDINGS: There is mild atelectasis at left lung base. No pleural effusion or pneumothorax. Cardiomeg ridge is noted. Median sternotomy wires and mediastinal surgical clips are seen, likely from prior michael nary artery bypass grafting. IMPRESSION: 1. Mild atelectasis at left lung base. 2. Cardiomegaly. Reviewed, dictated and finalized at location A.
--- NOTE | ~2024-01-10 | CT_ITS ---
EXAMINATION: CTA chest PE protocol DATE: 01/10/2024 09:04 INDICATION: Left chest pain. TECHNIQUE: Computed tomography angiography (CTA) of the chest was performed with 100 mL Omnipaque-350 intravenous contrast timed to evaluate the pulmonary arteries. Coronal maximum intensity projection 3D-reconstructions were created by the technologist. Automated exposure control and iterative reconst ruction technique were employed. The dose-length product was 453.34 mGy-cm. COMPARISON: None. FINDINGS: The lungs demonstrate mild atelectasis. A calcified left lung nodule and calcified left hil ar and mediastinal lymph nodes are consistent with old granulomatous disease. No pleural effusion. Ca rdiomegaly is noted. There are changes of coronary artery bypass grafting. No pericardial effusion. T here is no pulmonary embolus. There is a gallstone in the gallbladder, which is normal in size. Calci fications in the liver consistent with old granulomatous disease. There is severe osteoarthritis of t he glenohumeral joints. There is a large right glenohumeral joint effusion. There are bridging endpla te osteophytes at multiple levels in the spine, consistent with diffuse idiopathic skeletal hyperosto sis (DISH). There is moderate thoracic spondylosis. IMPRESSION: 1. No pulmonary embolus. Reviewed, dictated and finalized at location A. IMPRESSION: 1. No pulmonary embolus.
--- NOTE | 2024-01-10 05:59 | ECG_ITS ---
Test Date: 2024-01-10 06:08:23 Measurements Intervals [place] Rate: 57 P: -77 OR: 196 QRS: -52 QRSD: 122 T: 71 QT: 445 QTc: 437 Interpretive Statements SINUS BRADYCARDIA WITH SINUS ARRHYTHMIA WITH FIRST DEGREE AV BLOCK LEFT AXIS DEVIATION INTRAVENTRICULAR CONDUCTION DELAY LEFT VENTRICULAR HYPERTROPHY AND ST-T CHANGE CANNOT R/O SEPTAL INFARCT, AGE INDETERMINATE CONSIDER INFERIOR INFARCT, AGE INDETERMINATE BASELINE ARTIFACT- I, II, III, AVR, AVL, AVF, V2, V5 ABNORMAL ECG No previous ECG available for comparison Electronically Signed On 01-10-2024 07:50:04 CDT by Haja Myers D.O.
[2024-01-10 06:08] LABS: Basophils Percent Auto 0.2 % (0.2-1.2); Eosinophils Absolute Auto 0.2 K/mm3 (0-0.3); Hematocrit 35.7 % (37.0-47.0); Hemoglobin 11.2 g/dL (12.0-15.0); Immature Granulocyte Absolute 0.02 K/mm3 (0.00-0.031); Immature Granulocyte Percent A 0.4 % (0-0.5); Lymphocytes Absolute Auto 1.26 K/mm3 (0.9-3.2); Lymphocytes Percent Auto 23.5 % (18.3-44.2); Mean Corpuscular HGB Conc 31.4 g/dl (32-36); Mean Corpuscular Hemoglobin 29.4 pg (26-34); Mean Corpuscular Volume 93.7 fl (80-100); Mean Platelet Volume 9.9 fl (7.4-10.4); Monocytes Absolute Auto 0.3 K/mm3 (0.1-0.6); Monocytes Percent Auto 5.4 % (2.6-8.5); Neutrophils Absolute Auto 3.6 K/mm3 (1.3-6.7); Neutrophils Percent Auto 67.5 % (45.5-73.1); Platelet Count Result 150 k/mm3 (150-375); Red Blood Count 3.81 M/mm3 (4.2-5.4); Red Cell Distribution Width 14.6 % (11.5-14.5); White Blood Count 5.4 K/mm3 (4.5-10.0)
[2024-01-10 06:18] LABS: INR 0.9
[2024-01-10 06:19] LABS: Partial Thromboplastin Time 25.5 Seconds (22.3-36.8)
[2024-01-10 06:22] LABS: Alanine Aminotransferase 18 U/L (6-35); Albumin Level 3.7 g/dL (3.5-5.1); Alkaline Phosphatase 108 U/L (38-126); Anion Gap 7 mmol/L (4-12); Aspartate Amino Transferase 45 U/L (14-36); Bilirubin,Total 0.6 mg/dL (0.2-1.3); Blood Urea Nitrogen 23 mg/dL (7-17); Calcium 9.5 mg/dL (8.4-10.2); Carbon Dioxide 30 mmol/L (22-30); Chloride 103 mmol/L (98-107); Estimated CRCL calculation 58 ml/min; Estimated Glomerular Filt Rate > 60; Glucose 87 mg/dL (65-110); Lipase 229 U/L (23-300); Potassium 4.2 mmol/L (3.4-5.0); Sodium 140 mmol/L (137-145)
[2024-01-10 06:33] LABS: Troponin I < 0.012 ng/mL (0.000-0.034)
--- NOTE | 2024-01-10 07:41 | ED.GENADULT ---
HPI - General Adult General Chief complaint: Chest Pain Stated complaint: chest pain Time Seen by Provider: 01/10/24 06:56 History of Present Illness HPI narrative: Patient is an 88-year-old female who presents ER with with left-sided chest pain. Inferior to the breast. She reports it is constant but also intermittent. Ongoing since yesterday. Worsens when she takes deep breath at times but also when she lays down flat. No runny nose or sore throat. No productive cough. No fevers or chills or sweats. No exertional chest discomfort or dyspnea. Has history of CABG in the past. Patient has tried no oral medications to help with her discomfort. Related Data Home Medications Medication Instructions Recorded Confirmed calcium carbonate 600 mg-vitamin 1 cap PO .QD 11/30/19 06/12/23 D3 12.5 mcg (500 unit) capsule (Calcium 600 with Vitamin D3) multivitamin 1 tablet PO DAILY 11/30/19 06/12/23 vit C 226 mg-vit E 90 mg-copper 1 cap PO BID 11/30/19 06/12/23 0.8 mg-zinc oxide-lutein 5 mg capsule (PreserVision Lutein) aspirin 81 mg tablet,delayed 81 mg PO DAILY 08/08/20 06/12/23 release acetaminophen 325 mg capsule 650 mg PO Q6H PRN 06/13/22 06/12/23 ferrous sulfate 325 mg (65 mg 325 mg PO .COMPLEX 06/12/23 06/12/23 iron) tablet (Feosol) Allergies Allergy/AdvReac Type Severity Reaction Status Date / Time poison fiorella extract Allergy Unknown Unknown Verified 12/19/23 11:08 Review of Systems Review of Systems: All systems reviewed & are unremarkable except as noted in HPI and below Constitutional: Constitutional: Reports no additional constitutional complaints ENT: Reports system reviewed and no additional complaints, except as documented Cardiovascular: Cardiovascular: Reports chest pain and Denies radiating jaw, neck or arm pain Respiratory: Respiratory: Reports no additional respiratory complaints Gastrointestinal: Gastrointestinal: Reports no additional gastrointestinal complaints [facility] Past Medical History Medical History Abdominal aortic aneurysm (AAA) without rupture (12/08/17) 12.4.22: infrarenal 3.2 cm (stable since 01.19.2020) CAD (coronary artery disease) cabg 2017 CHF (congestive heart failure) echo 8.8.22: ef 52% COVID-19 Jun, 2020 Essential (primary) hypertension Fracture of fifth metacarpal bone Fracture of hip, left, closed Gastro-esophageal reflux disease without esophagitis PMR (polymyalgia rheumatica) Shoulder arthritis Sprain of cervical neck Vertigo Surgical History Surgical History Closed intertrochanteric fracture of left hip surgical repair January 2020 H/O: hysterectomy History of knee replacement Bilateral History of vein stripping Hx of CABG Hx of CABG 2017 S/P CABG x 2 Family History Family History Father Family history of cardiovascular disease, Onset Age: 86 Mother Family history of cardiovascular disease, Onset Age: 87 Sibling Acute myocardial infarction Family history of lung cancer Family history of malignant neoplasm of breast in first degree relative Family history of malignant neoplasm of urinary bladder Social History Social History Social History: Patient lives at home with Allan, whom she designates as her surrogate MDM, and her daughter. Her PCP is Dr. Cohen. She is listed as a Full Code Smoking status: Never smoker Second hand tobacco smoke exposure: No Alcohol intake: never Substance use: never Substance use type: does not use Lack of Transportation: No Lack of Food: Never True Current Housing: I Have Housing Concerned About Future Housing: No Difficulty Paying Gas/Electric Bills: No Difficulty Paying for Meds: No Currently Unemployed: No Education: High School
[2024-01-10] MEDS: KETOROLAC 15 MG/ML VIAL (*BKC) IV PUSH (07:52)
[2024-01-10 08:10] LABS: NT Pro B Type Natriuretic Pept 449 pg/mL (19.9-100)
[2024-01-10 09:40] LABS: Troponin I < 0.012 ng/mL (0.000-0.034)
--- NOTE | 2024-01-10 12:54 | ECG_ITS ---
Test Date: 2024-01-10 09:15:04 Measurements Intervals [place] Rate: 60 P: 0 RI: 0 QRS: -55 QRSD: 114 T: 72 QT: 431 QTc: 432 Interpretive Statements SINUS RHYTHM WITH FIRST DEGREE AV BLOCK INTRAVENTRICULAR CONDUCTION DELAY LEFT VENTRICULAR HYPERTROPHY AND ST-T CHANGE ANTEROSEPTAL INFARCT, AGE INDETERMINATE INFERIOR INFARCT, AGE INDETERMINATE BASELINE ARTIFACT- I, II, AVR, AVL, AVF, V1-V6 ABNORMAL ECG Compared to ECG 01/10/2024 06:08:23 HEART RATE HAS INCREASED Electronically Signed On 01-10-2024 14:15:37 CDT by Haja Myers D.O.
== END 2024-01-10 10:55 | disposition home or self-care (01) ==
PROVIDERS: Student in an Organized Health Care Education/Training Program; Emergency Provider Emergency Medicine; PCP Family Medicine
DX: R09.1 Pleurisy (principal); M25.411 Effusion, right shoulder; I25.10 Atherosclerotic heart disease of native coronary artery without angina pectoris; I11.0 Hypertensive heart disease with heart failure; I50.9 Heart failure, unspecified
CPT/HCPCS: 36415; 71045; 71275; 80053; 83690; 83880; 84484; 85025; 85380; 85610; 85730; 93005; 96374; 99284; J1885; Q9967

== ENCOUNTER 2024-06-23 14:23 | Outpatient (CLI) | payer MEDICARE, SELFPAY ==
[2024-06-23 17:03] LABS: Kit Draw Collected
== END 2024-06-23 14:24 | disposition home or self-care (01) ==
LOC: ANHGOSHLAB 14:25
PROVIDERS: PCP Family Medicine; Visit Provider Family Medicine
DX: I25.10 Atherosclerotic heart disease of native coronary artery without angina pectoris (principal); D63.8 Anemia in other chronic diseases classified elsewhere
CPT/HCPCS: 36415

== ENCOUNTER 2024-08-18 13:50 | Outpatient (CLI) | payer MEDICARE, SELFPAY ==
--- NOTE | ~2024-08-18 | DEXA_ITS ---
Bone Density Report Name: DANDRE FREEMAN I Age: 89 Sex: Female Ethnicity: White Date of : 1935 Indication: osteopenia; monitoring treatment; height loss; prior fracture; hysterectomy; Referring Provider: MARY JAVIER Study: Bone densitometry was performed. Exam Date: August 18, 2024 Accession number: [id number] Bone Density: Region BMD T-score Z-score Classification AP Spine(L1, L2) 1.218 2.2 4.9 Normal Femoral Neck (Right) 0.667 -1.6 0.9 Osteopenia Total Hip (Right) 0.727 -1.8 0.6 Osteopenia World Health Organization criteria for BMD impression classify patients as: Normal (T-score at or above -1.0), Osteopenia (T-score between -1.0 and -2.5), or Osteoporosis (T-score at or below -2.5). 10-year Fracture Risk: FRAX not reported because: Prior hip or vertebral fracture Treated for osteoporosis Previous Exams: Region Exam Age BMD T-score BMD Change BMD Change Date g/cm2 vs Baseline vs Previous AP Spine (L1-L2) 08/18/2024 89 1.218 2.2 0.195 (19.1%)# 0.062 (5.4%)# 12/15/2020 85 1.156 1.6 0.133 (13.0%)* 0.133 (13.0%)* 02/08/2016 80 1.023 0.4 Total Hip(Right) 08/18/2024 89 0.727 -1.8 -0.038 (-4.9%) -0.047 (-6.1%) 12/15/2020 85 0.774 -1.4 0.010 (1.3%) 0.010 (1.3%) 02/08/2016 80 0.764 -1.5 *Denotes significance at 95% confidence level, LSC for AP Spine = 0.022 g/cm2, LSC for Total Hip = 0.027 g/cm2 # Denotes dissimilar scan types or analysis methods Clinical Information Provided by Patient: Have had a previous hip or vertebral fracture Has had a low trauma fracture Is being treated for osteoporosis Has used the following medications: Fosamax (i.e. alendronate), Vitamin D, Calcium Has the following medical conditions: Hysterectomy Patient maximum height was 64 No regular weight bearing exercise Onset of menses at age 14 Number of children 5 Impression: The patient has low bone mass, based on the Right Total Hip T-score. The patient has risk factors, including: previous fracture. No significant bone loss was observed. Discussion: PATIENT UNDER TREATMENT WITH NO SIGNIFICANT BMD LOSS SINCE LAST EXAM. In an untreated patient, BMD typically declines with age. A lack of decline or gain is usually a sign that treatment is efficacious and fracture risk is reduced. It is important to ask patients whether they are taking their medications and to encourage continued and appropriate compliance with their osteoporosis therapies to reduce fracture risk. It is also important to review their risk factors and encourage appropriate calcium and vitamin D intakes, exercise, fall prevention and other lifestyle measures. Follow-Up: Consider a repeat BMD and Vertebral Fracture Assessment (VFA) exam in 2 years or sooner if medically necessary, to reassess this patient's status. Reported by: FELIBERTO on 08/18/2024 2:16:00 PM. Reviewed, dictated and finalized at location [facility] [place]
--- OUTSIDE RECORDS SUMMARY | 2024-08-18 13:55 | XMS_ITS | Encounter Summary ---
Author Organization [facility] Address [address] [facility] [address] [place] [id number] Care Team Providers Care Roof Assembler Name Role Phone Nicole Mckinney MD Primary Care Provider + Encounter Details Date Type Department Care Team (Late st Contact Info) Description 10/10/2016 Orders Only [facility] ProviderPepe MD [address] [place] [address] Social History Tobacco Use Types Packs/Day Years Used Date Smoking Tobacco: Never Alcohol Use Standard Drinks/Week Comments No 0 (1 standard drink = 0.6 oz pur e alcohol) Comments Unknown Sex and Gender Information Value Date Recorded Sex Assigned at Not on file 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 Historical Provider [facility] Final Result documented in this encounter Visit Diagnoses Not on filedocumented in this encounter Care Teams Roof Assembler Relationship Specialty Start Date End Date Nicole Mckinney MD PCP - General Family Medicine 01/21/22 documented as of this encounter
--- OUTSIDE RECORDS SUMMARY | 2024-08-18 13:55 | XMS_ITS | Clinical Summary ---
Author Organization [facility] [address] Address [address] [place] [address] Care Team Providers Care Fisheries Director Name Role Phone Nicole Mckinney MD Primary Care Provider + Allergies No known active allergies Medications metoprolol (LOPRESSOR) 50 mg tablet take 1 tablet by oral route 2 times every day with meals 0 0 7 Active ALPRAZolam (XANAX) 0.5 mg tablet Take 1 tablet (0.5 mg total) by mouth nightly as needed for anxiety Active calcium carbonate-vitam in D3 1500 mg (600 mg elemental) -400 units per tablet Take 1 tablet by mouth daily Active multivitamin capsule Take 1 capsule by mouth daily Active cyanocobalamin (Vitamin B-12) 1,000 mcg tabletIndicatio ns:Prevention of Vitamin B12 Deficiency Take 100 mcg by mouth 3 (three) times a week Active acetaminophen (TYLENOL) 325 mg tablet Take 2 tablets (650 mg total) by mouth every 6 (six) hours as needed for pain Active vit C/E/Zn/coppr/kandis tein/zeaxan (PRESERVISION AREDS-2 ORAL) Take by mouth. A ctive aspirin 81 mg enteric coated tablet Take 1 tablet (81 mg total) by mouth daily Active pantoprazole DR (PROTONIX) 20 mg EC tablet Take 1 tablet (20 mg total) by mouth daily Active ferrous sulfate 325 mg (65 mg of elemental iron) tabletIndicatio ns:Iron Deficiency Anemia Take 1 tablet (325 mg total) by mouth once a week Active cholecalciferol (VITAMIN D-3) 60877 unit capsule Take 1 capsule (10,000 Units total) by mouth daily Active meclizine (ANTIVERT) 25 mg tablet TAKE 1 TABLET BY MOUTH THREE TIMES DAILY NEEDED FOR DIZZINESS 3 Active alendronate (FOSAMAX) 70 mg tablet Take 1 tablet (70 mg total) by mouth every 7 days 3 Active atorvastatin (LIPITOR) 40 mg tablet Take 1 tablet (40 mg total) by mouth daily 4 Active Active Problems Problem Noted Date Diagnosed Date Nonrheumatic mitral valve regurgitation 02/14/20 21 Coronary artery disease invo lving [place] coronary artery of [place] heart without angina pectoris 04/15/2017 Hx of CABG 04/15/2017 Surgical follow-up care 09/05/2016 Overview (11/29/2016): Surgical followup Surgical History Surgery Date Site/Laterality Comments TOTAL ABDOMINAL HYSTERECTOMY Hysterectomy, total BACK SURGERY back surgery OTHER SURGICAL HISTORY bilateral total knee replacements OTHER SURGICAL HISTORY coronary artery disease: CABGx2 CATARACT EXTRACTION cataract surgery Medical History Medical History Date Comments Hypertension Hypertension Hyperlipidemia Hyperlipidemia; Comments: [facility] 09/05/2016 - Gastroesophageal reflux disease GERD Sleep apnea Sleep apnea Osteoarthritis Osteoarthritis; Comments: [facility] 09/05/2016 - Hx Other Medical spinal stenosis ; Comments: [facility] 09/05/2016 - Hx Other Medical coronary artery disease; Comments: [facility] 09/05/2016 - Family History Medical History Relation Name Comments Cancer Brother Cancer, unknown ; Coronary artery disease Father Meir nary artery disease; Arthritis Mother Arthritis; Coronary artery disease Mother Meir nary artery disease; Cancer Sister Cancer, unknown ; Relation Name Status Comments Brother Father Mother Sister Social History Tobacco Use Types Packs/Day Years Used Date Smoking Tobacco: Never Smokeless Tobacco: Never Tobacco Cessation:Counseling Given: Not Answered Alcohol Use Standard Drinks/Week Comments No 0 (1 standard drink = 0.6 oz pur e alcohol) Personal Safety Answer Date Recorded Getting School Help Needed Not on file 07/09 Comments Unknown Sex and Gender Information Value Date Recorded Sex Assigned at Not on file Legal Sex Female 2:56 AM DIRECTOR OF CAREER RESOURCES Gender Identity Not on file Sexual Orientation Not on file Obstetrics History Last Filed Vital Signs Vital Sign Reading Time Taken Comments Blood Pressure 118/60 04/06/2024 10:50 AM CDT Pulse 58 04/06/2024 10:50 AM CDT Temperature - - Respiratory Rate 16 04/15/2017 2:46 PM CDT Oxygen Saturation 98% 04/06/2024 10:50 AM CDT Inhaled Oxygen Concentration - - Weight 92.1 kg (203 lb 1.6 oz) 04/06/2024 10:50 AM CDT Height 152.4 cm (5') 04/06/2024 10:50 AM CDT Body Mass Index 39.67 04/06/2024 10:50 AM CDT Plan of Treatment Health Maintenance Due Date Last Done Comments Depression Screening 1936 Fall Risk Assessment 1936 DTaP/Tdap/Td Vaccine (1 - Tdap) 1947 Hepatitis B Screening 1954 Zoster Vaccine (1 of 2) 1986 Pneumococcal vaccine 65+ (1 of 1 - PCV) 2001 Well Visit 65+ 2001 Influenza Vaccine (#1) 2024 04/23/2019, 2017 Insurance AET[employer] [facility] MEDICARE MEDICARE AETNA SENIOR SUPPLEMENT Care Teams Fisheries Director Relationship Specialty Start Date End Date Nicole Mckinney MD PCP - General Family Medicine 01/21/22
--- OUTSIDE RECORDS SUMMARY | 2024-08-18 13:55 | XMS_ITS | Referral Summary ---
Author Organization [facility] [address] Address [address] [place] [address] Care Team Providers Care Student Outreach Coordinator Name Role Phone Nicole Mckinney MD Primary [...] once a week Active cholecalciferol (VITAMIN D-3) 90428 unit capsule Take 1 capsule (10,000 Units [...] 02/14/20 21 Coronary artery disease invo lving [place] coronary artery of [place] heart without angina pectoris 04/15/2017 Hx of CABG 04/15/2017 Surgical follow-up care 09/05/2016 Overview (11/29/2016): Surgical followup Social History Tobacco Use Types Packs/Day Years [...] on file 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
--- OUTSIDE RECORDS SUMMARY | 2024-08-18 13:55 | XMS_ITS | Encounter Summary ---
Author Organization [facility] Address [address] [facility] [address] [place] [address] Care Team Providers Care Dredging Inspector Name Role Phone Nicole Mckinney MD Primary Care Provider + Encounter Details Date Type Department Care Team (Late st Contact Info) Description 07/29/2016 Orders Only [facility] ProviderPepe MD [address] [place] [address] Social History Tobacco Use Types Packs/Day Years Used Date Smoking Tobacco: Never Assessed Comments Unknown Sex and Gender Information Value Date Recorded Sex Assigned at Not on file 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 us Historical Provider [facility] Final Result documented in this encounter Visit Diagnoses Not on filedocumented in this encounter Care Teams Dredging Inspector Relationship Specialty Start Date End Date Nicole Mckinney MD PCP - General Family Medicine 01/21/22 documented as of this encounter
== END 2024-08-18 13:51 | disposition home or self-care (01) ==
LOC: ANHIMG 13:51
PROVIDERS: PCP Family Medicine; Visit Provider Family Medicine
DX: M85.89 Other specified disorders of bone density and structure, multiple sites (principal); Z78.0 Asymptomatic menopausal state; Z87.81 Personal history of (healed) traumatic fracture
CPT/HCPCS: 77080

== ENCOUNTER 2025-01-18 13:48 | Outpatient (CLI) | payer MEDICARE, SELFPAY ==
--- NOTE | ~2025-01-18 | MR_ITS ---
MRI of the right foot CLINICAL HISTORY: Osteomyelitis TECHNIQUE: Axial proton-density and proton-density fat-sat images, sagittal T1-weighted and STIR imag es, and coronal T1-weighted and proton-density fat-sat images were performed. FINDINGS: Bone marrow signals are unremarkable. No evidence for osteomyelitis. No fracture or bone ma rrow edema seen. There are moderate degenerative changes scattered interphalangeal joints of the toes . No joint effusion evident. Flexor and extensor tendons appear intact. Intrinsic musculature of the foot is intact. No intermetat arsal bursitis or Castaneda's neuroma seen. No soft tissue mass or fluid collection. Possible focal soft tissue ulcer at the lateral aspect of the foot near the fifth MTP joint. IMPRESSION: No evidence for osteomyelitis or abscess. Questionable soft tissue ulcer at the lateral aspect of the foot near the fifth MTP joint. Scattered degenerative changes of interphalangeal joints of the toes. Reviewed, dictated and finalized at [facility].
--- OUTSIDE RECORDS SUMMARY | 2025-01-18 13:55 | XMS_ITS | Encounter Summary ---
Author Organization [facility] Address [address] [facility] [address] [place] [address] Care Team Providers Care Hospital Monitor Name Role Phone Nicole Mckinney MD Primary Care Provider + Encounter Details Date Type Department Care Team (Late st Contact Info) Description 10/10/2016 Orders Only [facility] ProviderPepe MD [address] [place] [address] Social History Tobacco Use Types Packs/Day Years Used Date Smoking Tobacco: Never Alcohol Use Standard Drinks/Week Comments No 0 (1 standard drink = 0.6 oz pur e alcohol) Comments Unknown Sex and Gender Information Value Date Recorded Sex Assigned at Not on file 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
--- OUTSIDE RECORDS SUMMARY | 2025-01-18 13:55 | XMS_ITS | Referral Summary ---
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 Gender Identity Not on file Sexual Orientation Not on file Last Filed Vital Signs Vital Sign Reading Time Taken Comments Blood Pressure 126/72 10/07/2024 2:34 PM CDT Pulse 70 10/07/2024 2:34 PM CDT Temperature - - Respiratory Rate 16 04/15/2017 2:46 PM CDT Oxygen Saturation 98% 10/07/2024 2:34 PM CDT Inhaled Oxygen Concentration - - Weight 90.7 kg (200 lb) 10/07/2024 2:34 PM CDT Height 152.4 cm (5') 10/07/2024 2:34 PM CDT Body Mass Index 39.06 10/07/2024 2:34 PM CDT Plan of Treatment Not on file Insurance [employer]NA SENIOR SUPPLEMENT MEDICARE MEDICARE AETNA SENIOR SUPPLEMENT Care Teams Meter Maker Relationship Specialty Start Date End Date Nicole Mckinney MD PCP - General Family Medicine 01/21/22
--- OUTSIDE RECORDS SUMMARY | 2025-01-18 13:55 | XMS_ITS | Encounter Summary ---
Author Organization [facility] Address [address] 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
--- OUTSIDE RECORDS SUMMARY | 2025-01-18 13:55 | XMS_ITS | Clinical Summary ---
Author Organization [facility] [address] Address [address] [place] [address] Care Team Providers Care Workforce Management Consultant Name Role Phone Nicole Mckinney MD Primary [...] once a week Active cholecalciferol (VITAMIN D-3) 63457 unit capsule Take 1 capsule (10,000 Units [...] 02/14/20 21 Coronary artery disease invo lving [place] coronary artery of [place] heart without angina pectoris 04/15/2017 Hx of CABG 04/15/2017 Surgical follow-up care 09/05/2016 Overview (11/29/2016): Surgical followup Surgical History Surgery Date Site/Laterality Comments TOTAL ABDOMINAL HYSTERECTOMY Hysterectomy, total BACK SURGERY back surgery OTHER SURGICAL HISTORY bilateral total knee replacements OTHER SURGICAL HISTORY coronary artery disease: CABGx2 CATARACT EXTRACTION cataract surgery Medical History Medical History Date Comments Hypertension Hypertension Hyperlipidemia Hyperlipidemia; Comments: [facility] 09/05/2016 - Gastroesophageal reflux disease GERD Sleep apnea Sleep apnea Osteoarthritis Osteoarthritis; Comments: [facility] 09/05/2016 - Hx Other Medical spinal stenosis ; Comments: [facility] 09/05/2016 - Hx Other Medical coronary artery disease; Comments: [facility] 09/05/2016 - Family History Medical History [...] on file 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 Gender Identity Not on file Sexual Orientation [...] 10/07/2024 2:34 PM CDT Plan of Treatment Health Maintenance Due Date Last Done Comments Depression Screening 1936 Fall Risk Assessment 1936 DTaP/Tdap/Td Vaccine (1 - Tdap) 1947 Hepatitis B Screening 1954 Pneumococcal vaccine 65+ (1 of 1 - PCV) 1986 Zoster Vaccine (1 of 2) 1986 Well Visit 65+ 2001 Influenza Vaccine (Season Ended) 2025 04/23/20 19, 04/07/2018 Insurance [employer] SENIOR SUPPLEMENT MEDICARE MEDICARE AETNA SENIOR SUPPLEMENT Care Teams Workforce Management Consultant Relationship Specialty Start Date End Date Nicole Mckinney MD PCP - General Family Medicine 01/21/22
== END 2025-01-18 13:49 | disposition home or self-care (01) ==
PROVIDERS: PCP Family Medicine; Visit Provider Podiatrist Foot & Ankle Surgery
DX: M86.171 Other acute osteomyelitis, right ankle and foot (principal)
CPT/HCPCS: 73718

== ENCOUNTER 2025-03-24 11:28 | Outpatient (CLI) | payer MEDICARE, SELFPAY ==
--- NOTE | 2025-03-24 | ECG_ITS ---
Test Date: 2025-03-24 12:26:15 Measurements Intervals [facility] Rate: 66 P: 129 KS: 184 QRS: -52 QRSD: 172 T: -1 QT: 408 QTc: 428 Interpretive Statements SINUS RHYTHM LEFT AXIS DEVIATION [QRS AXIS < -30] INTRAVENTRICULAR CONDUCTION DELAY [130+ ms QRS DURATION] CANNOT RULE OUT INFERIOR VENA FUNCTION ABNORMAL ECG Electronically Signed On 03-24-2025 12:37:19 CDT by Dru Cho M.D.
--- OUTSIDE RECORDS SUMMARY | 2025-03-24 11:55 | XMS_ITS | Encounter Summary ---
Author Organization [facility] Address [address] [place] [address] Care Team Providers Care Sergeant Of Officers Name Role Phone Nicole Mckinney MD Primary Care Provider + Encounter Details Date Type Department Care Team (Late st Contact Info) Description 08/10/2019 Orders Only [facility] Health Information Management [address] [place] [address] Scanning, Provider Social History Tobacco Use Types Packs/Day Years Used Date Smoking Tobacco: Never Smokeless Tobacco: Never Alcohol Use Standard Drinks/Week Comments No 0 (1 standard drink = 0.6 oz pur e alcohol) Comments Unknown Sex and Gender Information Value Date Recorded Sex Assigned at Not on file Legal Sex Female 2:56 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
--- OUTSIDE RECORDS SUMMARY | 2025-03-24 11:55 | XMS_ITS | Encounter Summary ---
Author Organization [facility] Address [address] [facility] [address] [place] [address] Care Team Providers Care Slumber Room Attendant Name Role Phone Nicole Mckinney MD Primary Care Provider + Encounter Details Date Type Department Care Team (Late st Contact Info) Description 07/29/2016 Orders Only [facility] ProviderPepe MD [address] [place] [address] Social History Tobacco Use Types Packs/Day Years Used Date Smoking Tobacco: Never Assessed Comments Unknown Sex and Gender Information Value Date Recorded Sex Assigned at Not on file 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
--- OUTSIDE RECORDS SUMMARY | 2025-03-24 11:55 | XMS_ITS | Clinical Summary ---
Author Organization [facility] [address] Address [address] [place] [address] Care Team Providers Care Accountant Auditor Name Role Phone Nicole Mckinney MD Primary [...] once a week Active cholecalciferol (VITAMIN D-3) 39344 unit capsule Take 1 capsule (10,000 Units [...] 02/14/20 21 Coronary artery disease invo lving [place] coronary artery of [place] heart without angina pectoris 04/15/2017 Hx of CABG 04/15/2017 Surgical follow-up care 09/05/2016 Overview (11/29/2016): Surgical followup Surgical History Surgery Date Site/Laterality Comments TOTAL ABDOMINAL HYSTERECTOMY Hysterectomy, total BACK SURGERY back surgery OTHER SURGICAL HISTORY bilateral total knee replacements OTHER SURGICAL HISTORY coronary artery disease: CABGx2 CATARACT EXTRACTION cataract surgery Medical History Medical History Date Comments Hypertension Hypertension Hyperlipidemia Hyperlipidemia; Comments: [facility] 09/05/2016 - Gastroesophageal reflux disease GERD Sleep apnea Sleep apnea Osteoarthritis Osteoarthritis; Comments: [facility] 09/05/2016 - Hx Other Medical spinal stenosis ; Comments: [facility] 09/05/2016 - Hx Other Medical coronary artery disease; Comments: [facility] 09/05/2016 - Family History Medical History Relation [...] on file 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
--- OUTSIDE RECORDS SUMMARY | 2025-03-24 11:55 | XMS_ITS | Encounter Summary ---
Author Organization [facility] Address [address] [facility] [address] [place] [id number] Care Team Providers Care Infantry Officer Name Role Phone Nicole Mckinney MD Primary Care Provider + Encounter Details Date Type Department Care Team (Late st Contact Info) Description 10/10/2016 Orders Only [facility] ProviderPepe MD [address] [place] [id number] Social History Tobacco Use Types Packs/Day Years Used Date Smoking Tobacco: Never Alcohol Use Standard Drinks/Week Comments No 0 (1 standard drink = 0.6 oz pur e alcohol) Comments Unknown Sex and Gender Information Value Date Recorded Sex Assigned at Not on file Legal Sex Female 2:56 AM SOCIETY REPORTER Gender Identity Not on file Sexual Orientation [...] on filedocumented in this encounter Care Teams Infantry Officer Relationship Specialty Start Date End Date Nicole Mckinney MD PCP - General Family Medicine 01/21/22 documented as of this encounter
[2025-03-24 12:22] LABS: Alanine Aminotransferase 22 U/L (6-35); Albumin Level 3.5 g/dL (3.5-5.1); Alkaline Phosphatase 116 U/L (38-126); Anion Gap 5 mmol/L (4-12); Aspartate Amino Transferase 53 U/L (14-36); Bilirubin,Total 0.5 mg/dL (0.2-1.3); Blood Urea Nitrogen 23 mg/dL (7-17); Calcium 9.7 mg/dL (8.4-10.2); Carbon Dioxide 30 mmol/L (22-30); Chloride 103 mmol/L (98-107); Estimated Glomerular Filt Rate > 60; Glucose 99 mg/dL (65-110); Potassium 4.9 mmol/L (3.4-5.0); Sodium 138 mmol/L (137-145); Total Protein 7.2 g/dL (6.3-8.2)
== END 2025-03-24 11:29 | disposition home or self-care (01) ==
PROVIDERS: PCP Family Medicine; Visit Provider Podiatrist Foot & Ankle Surgery
DX: Z01.818 Encounter for other preprocedural examination (principal); R03.0 Elevated blood-pressure reading, without diagnosis of hypertension; R94.31 Abnormal electrocardiogram [ECG] [EKG]
CPT/HCPCS: 36415; 80053; 93005

== ENCOUNTER 2025-06-28 10:12 | Outpatient (CLI) | payer MEDICARE, SELFPAY ==
--- OUTSIDE RECORDS SUMMARY | 2025-06-28 10:45 | XMS_ITS | Encounter Summary ---
Author Organization [facility] Address [address] [place] [address] Care Team Providers Care Stud Master/Mistress Name Role Phone Nicole Mckinney MD Primary Care Provider + Encounter Details Date Type Department Care Team (Late st Contact Info) Description 08/10/2019 Orders Only [facility] Information Management [address] [place] [id number] Scanning, Provider Social History Tobacco Use Types Packs/Day Years Used Date Smoking Tobacco: Never Smokeless Tobacco: Never Alcohol Use Standard Drinks/Week Comments No 0 (1 standard drink = 0.6 oz pur e alcohol) Comments Unknown Sex and Gender Information Value Date Recorded Sex Assigned at Not on file 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
--- OUTSIDE RECORDS SUMMARY | 2025-06-28 10:45 | XMS_ITS | Encounter Summary ---
Author Organization [facility] Address [address] [facility] [address] [place] [id number] Care Team Providers Care Housekeeping Worker Name Role Phone Nicole Mckinney MD Primary Care Provider + Encounter Details Date Type Department Care Team (Late st Contact Info) Description 10/10/2016 Orders Only [facility] ProviderPepe MD [address] [place] [id number] Social History Tobacco Use Types Packs/Day Years Used Date Smoking Tobacco: Never Alcohol Use Standard Drinks/Week Comments No 0 (1 standard drink = 0.6 oz pur e alcohol) Comments Unknown Sex and Gender Information Value Date Recorded Sex Assigned at Not on file 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
--- OUTSIDE RECORDS SUMMARY | 2025-06-28 10:45 | XMS_ITS | Clinical Summary ---
Author Organization [facility] [address] Address [address] [place] [address] Care Team Providers Care Convention Manager Name Role Phone Nicole Mckinney MD Primary [...] once a week Active cholecalciferol (VITAMIN D-3) 01691 unit capsule Take 1 capsule (10,000 Units [...] 02/14/20 21 Coronary artery disease invo lving [place] coronary artery of [place] heart without angina pectoris 04/15/2017 Hx of CABG 04/15/2017 Surgical follow-up care 09/05/2016 Overview (11/29/2016): Surgical followup Encounters Date Type Department Care Team Description 04/18/2025 2:00 PM CDT Office Visit [facility] Cardiology [address] [place] [address] Hernandez Green MD Hx of CABG (Primary Dx); Coronary artery disease involving [place] coronary artery of [place] heart without angina pectoris; Nonrheumatic mitral valve regurgitation from Last 3 Months Surgical History Surgery Date Site/Laterality Comments TOTAL ABDOMINAL HYSTERECTOMY Hysterectomy, total BACK SURGERY back surgery OTHER SURGICAL HISTORY bilateral total knee replacements OTHER SURGICAL HISTORY coronary artery disease: CABGx2 CATARACT EXTRACTION cataract surgery FOOT SURGERY 07/07/2024 - 07/06/2025 for bone spur Medical History Medical History Date Comments Hypertension Hypertension Hyperlipidemia Hyperlipidemia; Comments: CAF 09/05/2016 - Gastroesophageal reflux disease GERD Sleep apnea Sleep apnea Osteoarthritis Osteoarthritis; Comments: CAF 09/05/2016 - Hx Other Medical spinal stenosis ; Comments: CAF 09/05/2016 - Hx Other Medical coronary artery disease; Comments: CAF 09/05/2016 - Family History Medical History Relation [...] on file 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 Gender Identity Not on file Sexual Orientation Not on file Last Filed Vital Signs Vital Sign Reading Time Taken Comments Blood Pressure 118/66 04/18/2025 1:56 PM CDT Pulse 62 04/18/2025 1:56 PM CDT Temperature - - Respiratory Rate 16 04/15/2017 2:46 PM CDT Oxygen Saturation 98% 04/18/2025 1:56 PM CDT Inhaled Oxygen Concentration - - Weight 91.1 kg (200 lb 12.8 oz) 04/18/2025 1:56 PM CDT Height 152.4 cm (5') 04/18/2025 1:56 PM CDT Body Mass Index 39.22 04/18/2025 1:56 PM CDT Plan of Treatment Health Maintenance Due Date Last Done Comments Depression Screening 1936 Fall Risk Assessment 1936 Osteoporosis Screening-Bone Density Scan 1936 DTaP/Tdap/Td Vaccine (1 - Tdap) 1947 Hepatitis B Screening 1954 Pneumococcal vaccine 65+ (1 of 1 - PCV) 1986 Zoster Vaccine (1 of 2) 1986 Well Visit 65+ 2001 Influenza Vaccine (#1) 2025 04/23/2019, 2017 Insurance [employer] SENIOR SUPPLEMENT MEDICARE MEDICARE [employer] SENIOR SUPPLEMENT Care Teams Convention Manager Relationship Specialty Start Date End Date Nicole Mckinney MD PCP - General Family Medicine 01/21/22
--- OUTSIDE RECORDS SUMMARY | 2025-06-28 10:45 | XMS_ITS | Encounter Summary ---
Author Organization [facility] Address [address] [facility] [address] [place] [address] Care Team Providers Care Environmental Compliance Manager Name Role Phone Nicole Mckinney MD Primary Care Provider + Encounter Details Date Type Department Care Team (Late st Contact Info) Description 07/29/2016 Orders Only [facility] ProviderPepe MD [address] [place] [phone] Social History Tobacco Use Types Packs/Day Years Used Date Smoking Tobacco: Never Assessed Comments Unknown Sex and Gender Information Value Date Recorded Sex Assigned at Not on file 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
== END 2025-06-28 10:13 | disposition home or self-care (01) ==
LOC: ANHGOSHLAB 10:14
PROVIDERS: PCP Family Medicine; Visit Provider Family Medicine
DX: E78.2 Mixed hyperlipidemia (principal); D63.8 Anemia in other chronic diseases classified elsewhere
CPT/HCPCS: 36415